=== PATIENT | male | born 1945 | race Caucasian/White ===

== ENCOUNTER 2024-11-07 11:50 | Outpatient (REF) | payer MEDICARE, SELFPAY ==
[2024-11-07 13:32] LABS: MANUAL DIFF FLAG NO
[2024-11-07 13:35] LABS: Prothrombin Time 11.2 SEC (10.9-12.4)
[2024-11-07 13:38] LABS: Basophils Percent Auto 0.6 % (0-2); Eosinophils Absolute Auto 0.1 X10*3/uL (0.0-0.4); Eosinophils Percent Auto 1.5 % (0-4); Hematocrit 50.4 % (42.0-52.0); Hemoglobin 17.1 g/dl (14.0-18.0); Imm Gran Abs Auto 0.03 X10*3/uL (0.00-0.03); Imm Gran Pct Auto 0.6 % (0.0-0.4); Lymphocytes Absolute Auto 1.5 X10*3/uL (1.2-4.9); Lymphocytes Percent Auto 27.3 % (20-40); Mean Corpuscular HGB Conc 33.9 g/dl (31.0-36.0); Mean Corpuscular Hemoglobin 32.4 pg (27.0-33.0); Mean Corpuscular Volume 95.5 fL (80.0-98.0); Mean Platelet Volume 10.4 fL (9.4-12.4); Monocytes Absolute Auto 0.4 X10*3/uL (0.1-1.2); Monocytes Percent Auto 6.5 % (2-11); Neutrophils Absolute Auto 3.5 x10*3/uL (2.0-8.3); Neutrophils Percent Auto 63.5 % (45-73); Platelet Count 195 X10*3/uL (160-400); Red Blood Count 5.28 X10*6/uL (4.60-5.80); Red Cell Distribution Width 13.5 % (11.0-16.0); White Blood Count 5.4 X10*3/uL (4.8-10.8)
[2024-11-07 13:44] LABS: Anion Gap 14 (12-20); Blood Urea Nitrogen 20 mg/dL (9-16); Calcium 9.7 mg/dL (8.4-10.2); Carbon Dioxide 21 mmol/L (22-29); Chloride 107 mmol/L (96-108); Estimated Glomerular Filt Rate 44; Glucose Random 146 mg/dL (60-115); Sodium 138 mmol/L (135-145)
--- OUTSIDE RECORDS SUMMARY | 2024-11-07 14:20 | XMS_ITS ---
Author Name [facility] Organization [facility] Address [address] [place] [id number] Care Team Providers Care Plumbing Foreman Name Role Phone WILIAM BERMAN Primary Care Provide r Unavailable Insurance Providers: All historical and current Section Date Range: From patient's date of to the date document was created. This section includes the names of all active insurance providers for the patient. Insurance Provider Type of Coverage Plan Name Start of Policy Coverage End of Policy Coverage Group Number Member ID Insurance Provider's Telephone Number Policy Flood's Name Patient's Relationship to Policy Flood [facility] (WNR) MEDICARE ADVANTAGE [facility] (WNR) Sep 05, 2012 HAMPD [id number] PATIENT [facility] (WNR) MEDICARE ADVANTAGE [facility] (WNR) Sep 05, 2012 [id number] PATIENT Selected Encounter This section includes the information on record at [place] for the Encounter. Date/Time Encounter Type Encounter Description Reason Pro vider Source Aug 22, 2024 05:54 AM Outpatient Encounter ADMIN PAT ACTIVTIES (MASNONCT) IHE Encounter Template Text not used by [place] Plan of Treatment: Future Appointments (+ 6 months) and Future Tests (+/- 45 days) The Plan of Treatment section includes future care activities for the patient from all [facility] treatment[facility]ilities. This section includes future appointments and future orders which are active, pending or scheduled. Future Appointments This section includes appointments that were scheduled to occur 6 months from the date of the Encounter, up to a maximum of 20 appointments. The data comes from all [place] treatment facilities. Appointment Date/Time Appointment Type Appointme nt Facility Name Sep 19, 2024 12:00 PM AMBULATORY - MEDICINE [place] [facility] [place] [facility] Oct 17, 2024 08:00 AM [facility] [place] [place] Oct 26, 2024 08:00 AM [facility]IC[facility] Oct 31, 2024 11:30 AM AMBULATORY - MEDICINE [place] [facility] [place] [facility] Nov 09, 2024 10:10 AM [facility]UL[facility]INE [facility] [place] [facility] Nov 21, 2024 11:00 AM AM[facility]ULATORY [facility] MEDICINE [facility] Dec 12, 2024 11:00 AM AMBULATORY - MEDICINE [place] [facility] [place] [facility] January 22, 2025 08:00 AM [facility]ORY - MEDICINE [facility] Feb 05, 2025 10:00 AM [facility] Lab Results: +/- 30 days of the encounter This section includes the Chemistry and Hematology Lab Results on record with [place] for the patient. Radiology Reports and Pathology Reports are provided separately, in subsequent sections. Lab Results This section contains the Chemistry/Hematology Results that were resulted 30 days before or 30 daysafter the date of the Encounter. Date/Time Source Result Type Result - Unit Interpretation Reference Range Comment Sep 19, 2024 12:43 PM [facility] HEMOGLOBIN A1C PANEL Specimen Type: BLOOD Comment: Values obtained from A1C measurements can vary. For atypical A1C assays, a reported value of 7.0 could actually be between 6.72 and 7.28 if measured by a reference method. A reported value of 9.0 could actually be between 8.73 and 9.27. Ref: http://www.ngs p.org/CAPdata. asp Ordering Provider: HALEY GO Report Released Date/Time: Sep 19, 2024 12:20 PM Reporting Lab: [address] [id number] Performing Lab: [address] [address] HEMOGLOBIN A1C 6.7 H 4.0-5.6 Sep 19, 2024 12:43 PM [facility] BASIC METABOLIC PANEL (non-fasting) Specimen Type: SERUM Comment: Hemolysis present may falsly elevate Potassium Total and Direct Bili, Iron, AST, %Fe. Ordering Provider: HALEY GO Report Released Date/Time: Sep 19, 2024 12:20 PM Reporting Lab: [facility] [address] [facility] [address] Performing Lab: [facility] [address] [facility] [address] UREA NITROGEN 22 mg/dL 7-25 GLUCOSE 100 mg/dL 65-100 SODIUM 138 mmol/L 135-145 POTASSIUM 4.8 mmol/L 3.5-5.0 CHLORIDE 105 mmol/L 100-110 CO2 25 meq/L 20-30 CREATININE, Serum 1.57 mg/dL H 0.50-1.40 eGFR(CKD-EPI 2020) 44 mL/min L >60 Social History: Smoking Status (Most current) and Tobacco Use (All prior to encounter date) This section includes the most current, and the historical, smoking and tobacco- related health factors from the [place] facility where the Encounter took place. Current Smoking Status This section includes the most current smoking, or tobacco-related health factor, from the [place] facility where the Encounter took place. Date/Time Current Smoking Status Comment Alyce ity Jul 18, 2020 11:41 AM VA-TOBACCO USER EVERY DAY [facility] Tobacco Use History This section includes a history of the smoking, or tobacco-related health factors, that were collected on or before the date of the Encounter. The data comes from the [place] facility where the Encounter took place. 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 This section includes ALL of a patient's completed or amended [place] Advance and Rescinded Directives. The entries below indicate that a directive exists for the patient, but an actual copy is not included with this document. The data comes from all [place] facilities. Date Advance Directives Provider Source Sep 26, 2015 ADVANCE DIRECTIVE SRINIVAS ANDERSON WALDRON Encounter Notes: All associated encounter notes This section contains the clinical notes associated to the Encounter. Date/Time Encounter Note(s) Provider Source Aug 22, 2024 05:54 AM PHARMACY NOTE: LOCAL TITLE: PHARMACY CUSTOMER CARE MEDICATION RENEWAL STANDARD TITLE: PHARMACY NOTE DATE OF NOTE: AUG 22, 2024@05:54 ENTRY DATE: AUG 22, 2024@05:54:53 AUTHOR: TRUDI PETTIT EXP COSIGNER: URGENCY: STATUS: COMPLETED Date: Aug Division: [facility] referred by Pharmacy Call Center for medication renewal: Non-controlled/maintenanc e medication Medications requested: [id number] BENAZEPRIL HCL 20MG TAB Defer to primary care provider To be mailed . Please review and renew if appropriate. *This note was generated by [facility] [facility] Customer [facility]. If you have any questions or need assistance, do not contact this author. Please refer all questions to your local, on-site pharmacy departments. /marisela/ TRUDI PETTIT CPhT Child Protection Specialist, [place]/Pharmacy Customer Care Signed: 08/22/2024 05:55 Receipt Acknowledged By: 08/24/2024 13:38 /es/ WILIAM BERMAN MD PHYSICIAN 08/30/2024 15:02 /es/ CINDY BERMAN RN REGISTERED NURSE TRUDI PETTIT [place] [facility]
--- OUTSIDE RECORDS SUMMARY | 2024-11-07 14:20 | XMS_ITS | Encounter Summary ---
Author Name [facility] ([place]) Organization [facility] Address [address] [place] [id number] Care Team Providers Care Grades 7 And 8 Visiting Teacher Name Role Phone WILIAM BERMAN Primary Care [...] Flood's Name Patient's Relationship to Policy Flood [facility] HE[facility]AN [facility] ([facility]) MEDICARE ADVANTAGE [facility] (R) Sep 05, 2012 [id number] PATRICK POLK PATIENT [facility] (WNR) MEDICARE ADVANTAGE [facility] (WNR) Sep 05, 2012 [id number] PATRICK POLK PATIENT Selected Encounter This section includes the information on record at ME for the Encounter. Date/Time Encounter Type Encounter Description Reason Provider Source Jun 28, 2024 09:30 AM MTMS BY PHARM ADDL 15 MIN CLINICAL PHARMACY ICD-10-CM E11.9 Type 2 diabetes mellitus without complications [facility]YS GO Lor Encounter Template Text not used by ME Assessments - Encounter Diagnoses This section includes the primary and secondary diagnoses documented for the Encounter. Date/Time Primary/Secondary Diagnosis Diagnosis Name Provider Source Jun 28, 2024 10:25 AM PRIMARY Type 2 diabetes mellitus without complications HALEY GO [facility] Plan of Treatment: Future Appointments (+ 6 months) and Future Tests (+/- 45 days) The Plan of Treatment section includes future care activities for the patient from all ME treatmentfacilities. This section includes future appointments and future orders which are active, pending or scheduled. Future Appointments This section includes appointments that were scheduled to occur 6 months from the date of the Encounter, up to a maximum of 20 appointments. The data comes from all ME treatment facilities. Appointment Date/Time Appointment Type Appointme nt Facility Name Jul 05, 2024 11:30 AM AMBULATORY - MEDICINE [facility] Jul 18, 2024 08:00 AM AMBULATORY - MEDICINE [facility] Aug 22, 2024 10:00 AM AMBULATORY - MEDICINE [facility] Sep 19, 2024 12:00 PM AMBULATORY MEDICINE [place] [facility] [place] [facility] Oct 17, 2024 08:00 AM AMBULATORY - MEDICINE [facility] Oct 26, 2024 08:00 AM AMBULATORY MEDICINE [facility] Oct 31, 2024 11:30 AM AMBULATORY MEDICINE [place] [facility] Nov 09, 2024 10:10 AM AMBULATORY MEDICINE [place] [facility] Nov 21, 2024 11:00 AM AMBULATORY - MEDICINE [facility] Dec 12, 2024 11:00 AM AMBULATORY - MEDICINE [facility] Lab Results: +/- 30 days of the encounter This section includes the Chemistry and Hematology Lab Results on record with ME for the patient. Radiology Reports and Pathology Reports are provided separately, in subsequent sections. Lab Results This section contains the Chemistry/Hematology Results that were resulted 30 days before or 30 daysafter the date of the Encounter. Date/Time Source Result Type Result - Unit Interpretation Reference Range Comment Jun 20, 2024 09:05 AM [facility] H PYLORI ANTIBODY Specimen Type: SERUM No comment entered. Ordering Provider: WILIAM EPPS Report Released Date/Time: Feb 12, 2024 06:47 PM Reporting Lab: [facility] [address] [facility] [address] Performing Lab: [facility] [address] [facility] [address] H PYLORI IgG NEGATIVE NEGATIVE Jun 20, 2024 09:05 AM [facility] HEMOGLOBIN A1C PANEL Specimen Type: BLOOD Comment: Values obtained from A1C measurements can vary. For atypical A1C assays, a reported value of 7.0 could actually be between 6.72 and 7.28 if measured by a reference method. A reported value of 9.0 could actually be between 8.73 and 9.27. Ref: http://www.ngs p.org/CAPdata. asp Ordering Provider: WILIAM EPPS Report Released Date/Time: Feb 12, 2024 06:48 PM Reporting Lab: [address] [address] Performing Lab: [address] [address] HEMOGLOBIN A1C 6.6 H 4.0-5.6 Jun 20, 2024 09:05 AM [facility] MICROALBUMIN CREATININE RATIO PANEL Spe cimen Type: URINE No comment entered. Ordering Provider: WILIAM EPPS Report Released Date/Time: Feb 12, 2024 06:48 PM Reporting Lab: [address] [address] Performing Lab: [address] [address] MICROALBUMIN/C REATININE RATIO 17.5 mg/g 0-29.9 MICROALBUMIN,Q UANTITATIVE 1.7 mg/dL RR UNAVAIL CREATININE URINE 97.12 mg/dL Jun 20, 2024 09:05 AM [facility] BASIC METABOLIC PANEL (fasting) Specime n Type: SERUM No comment entered. Ordering Provider: WILIAM EPPS Report Released Date/Time: Feb 12, 2024 06:48 PM Reporting Lab: [address] [address] Performing Lab: [address] [address] UREA NITROGEN 24 mg/dL 7-25 GLUCOSE 126 mg/dL H 65-100 SODIUM 138 mmol/L 135-145 POTASSIUM 4.2 mmol/L 3.5-5.0 CHLORIDE 107 mmol/L 100-110 CO2 21 meq/L 20-30 CREATININE, Serum 1.62 mg/dL H 0.50-1.40 eGFR(CKD-EPI 2020) 43 mL/min L >60 Social History: Smoking Status (Most current) and Tobacco Use (All prior to encounter date) This section includes the most current, and the historical, smoking and tobacco- related health factors from the ME facility where the Encounter took place. Current Smoking Status This section includes the most current smoking, or tobacco-related health factor, from the ME facility where the Encounter took place. Date/Time Current Smoking Status Comment Facil it Aug 11, 2023 09:00 AM VA-TOBACCO USER EVERY DAY [facility] Tobacco Use History This section includes a history of the smoking, or tobacco-related health factors, that were collected on or before the date of the Encounter. The data comes from the ME facility where the Encounter took place. Date/Time Smoking Status/Tobacco Use Comment [facility] Aug 11, 2023 09:00 AM VA-TOBACCO USE 30 YEARS OR MORE [facility] Aug 11, 2023 09:00 AM VA-TOBACCO USE ADVICE [facility] Aug 11, 2023 09:00 AM VA-TOBACCO USE PROGRAM MANAGEMENT PROFESSIONAL NO [facility] Aug 11, 2023 09:00 AM VA-TOBACCO USE MED NO [facility] Aug 11, 2023 09:00 AM VA-TOBACCO USER EVERY DAY [facility] Aug 12, 2022 09:00 AM VA-TOBACCO USE 30 YEARS OR MORE [facility] Aug 12, 2022 09:00 AM VA-TOBACCO USE ADVICE [facility] Aug 12, 2022 09:00 AM VA-TOBACCO USE PROGRAM MANAGEMENT PROFESSIONAL NO [facility] Aug 12, 2022 09:00 AM VA-TOBACCO USE MED [facility] Aug 12, 2022 09:00 AM VA-TOBACCO USE WI 30 MIN OF WAKEUP [facility] Aug 12, 2022 09:00 AM VA-TOBACCO USER EVERY DAY [facility] Aug 13, 2021 09:30 AM VA-TOBACCO USE 30 YEARS OR MORE [facility] Aug 13, 2021 09:30 AM VA-TOBACCO USE ADVICE [facility] Aug 13, 2021 09:30 AM VA-TOBACCO USE PROGRAM MANAGEMENT PROFESSIONAL NO [facility] Aug 13, 2021 09:30 AM VA-TOBACCO USE MED NO [facility] Aug 13, 2021 09:30 AM VA-TOBACCO USE WI 30 MIN OF WAKEUP [facility] Aug 13, 2021 09:30 AM VA-TOBACCO USER EVERY DAY [facility] Jun 23, 2018 09:30 AM VA-TOBACCO USE 30 YEARS OR MORE [facility] Jun 23, 2018 09:30 AM VA-TOBACCO USE ADVICE [facility] Jun 23, 2018 09:30 AM VA-TOBACCO USE PROGRAM MANAGEMENT PROFESSIONAL NO [facility] Jun 23, 2018 09:30 AM VA-TOBACCO USE MED NO [facility] Jun 23, 2018 09:30 AM VA-TOBACCO USE WI 30 MIN OF WAKEUP [facility] Jun 23, 2018 09:30 AM VA-TOBACCO USER EVERY DAY [facility] Jun 23, 2018 05:05 AM VA-TOBACCO DOESNT USE WI 30 MIN BIG TIMBERUP [facility] Jun 23, 2018 05:05 AM VA-TOBACCO USE 30 YEARS OR MORE [facility] Jun 23, 2018 05:05 AM VA-TOBACCO USE ADVICE [facility] Jun 23, 2018 05:05 AM VA-TOBACCO USE PROGRAM MANAGEMENT PROFESSIONAL NO [facility] Jun 23, 2018 05:05 AM VA-TOBACCO USE MED NO [facility] Jun 23, 2018 05:05 AM VA-TOBACCO USER EVERY DAY [facility] Jun 24, 2017 08:28 AM CURRENT SMOKER cigarettes 3/4 pack daily [facility] Jun 24, 2017 08:28 AM V1-PT NOT INTEREST ED IN QUIT TOBACCO USE [facility] May 21, 2016 09:13 AM V1-PT NOT INTEREST ED IN QUIT TOBACCO USE [facility] Sep 02, 2015 03:57 PM CURRENT SMOKER HALF A PACK A DAY [facility] Sep 02, 2015 03:57 PM V1-PT NOT INTEREST ED IN QUIT TOBACCO USE [facility] Advance Directives: All historical and current Section Date Range: From patient's date of to the date document was created. This section includes ALL of a patient's completed or amended VA Advance and Rescinded Directives. The entries below indicate that a directive exists for the patient, but an actual copy is not included with this document. The data comes from all ME facilities. Date Advance Directives Provider Source Sep 26, 2015 ADVANCE DIRECTIVE SRINIVAS ANDERSON [facility] Encounter Notes: All associated encounter notes This section contains the clinical notes associated to the Encounter. Date/Time Encounter Note(s) Provider Source Jun 28, 2024 09:35 AM PHARMACY OUTPATIEN T NOTE: LOCAL TITLE: PHARMACY CLINIC NOTE STANDARD TITLE: PHARMACY OUTPATIENT NOTE DATE OF NOTE: JUN 28, 2024@09:35 ENTRY DATE: JUN 28, 2024@09:35:59 AUTHOR: KELLY GO COSIGNER: URGENCY: STATUS: COMPLETED Patient Name: PATRICK POLK was seen via F2F for new visit for diabetes management treatment. : Dec Age: 78 Sex: MALE Race: WHITE Subjective: Pt is new to [facility]. He is followed by outside Enodcrinologist from [facility]. Pt's main complaints are his GI issues - pt states he gets constant pain and difficulty w/ eating. He plans to discuss this w/ his PCP at the upcoming visit on 07/05/24. He also has back pain - he learned to live with it but states it continues to progresively get worse. Pt walks hunched over. Due to back pain and severe GI symptoms pt stopped fishing, golfing as this is big limitation to his activity level. Pt has had DM x over 20 years. NO fhx of DM. No CVD histroy. Pt has CKD stage 4 and severe neuropathy in his feet. Target Goals: A1C: 7%; FB-130 mg/dL; 2HRS PP <180mg/dL. Allergies: Patient has answered NKA PERTINENT INFORMATION: Active problems - Computerized Problem List is the source for the followin. Cholelithiasis without obstruction 2. Vitamin D Deficiency ([facility] [id number]) 3. Exposure to potentially hazardous substance 4. Polyneuropathy due to type 2 diabetes mellitus 5. Cobalamin deficiency 6. Obesity 7. Tobacco dependence 8. Type 2 diabetes mellitus 9. Chronic kidney disease stage 3 10. Hypertension 11. Mixed hyperlipidemia 12. Gout 13. Colonoscopy Screening 14. First degree atrioventricular block 15. Inguinal hernia 16. 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 Primary Care Physician 19. Gastroesophageal reflux disease Objective: Diabetes Medication Regimen: - empagliflozin 25 mg daily in AM - eGFR 43ml/min on 06/28 - pioglitazone 30 mg daily - Insulin glargine (vial) 40-50 units daily in HS usually after supper 5-6 PM - Semaglutide 0.5 mg weekly (Fridays) Previous DM Medications: - metformin - for many years likely d/t kidney - insulin detemir - trulicity Adherence: Oral meds: denies missed doses Insulin: denies missed doses Labs: HEMOGLOBIN A1C TREND Collection DT Spec HGBA1c 06/20/2024 09:05 BLOOD 6.6 H 11/23/2023 08:11 BLOOD 6.7 H 08/03/2021 07:36 BLOOD 8.4 H 06/20/2020 09:36 BLOOD 8.1 H 06/08/2019 08:45 BLOOD 7.8 H CBC TREND Collection DT Spec WBC RBC HGB HCT MCV MCH PLT 11/23/2023 08:11 BLOOD 5.90 4.99 15.7 46.5 93.2 31.5 238 06/08/2019 08:45 BLOOD 5.40 4.47 14.3 43.5 97.3 32.0 274 06/09/2018 08:04 BLOOD 6.90 4.40 14.1 42.5 96.6 32.0 288 06/17/2017 08:11 BLOOD 5.49 4.20 L 13.4 40.4 96.2 31.9 261 03/15/2016 07:50 BLOOD 6.36 4.64 14.3 43.2 93.1 30.8 225 CHEM 7 TREND LAB CUMULATIVE SELECTED Collection DT Spec GLUCOSE BUN CREATIN Sodium K+/Pot CL CO2 06/20/2024 09:05 SERUM 126 H 24 1.62 H 138 4.2 107 21 11/23/2023 08:11 SERUM 97 21 1.47 H 138 4.1 106 22 08/03/2021 07:36 SERUM 122 H 25 1.66 H 141 4.5 107 22 06/20/2020 09:36 SERUM 110 H 23 1.65 H 139 4.6 104 24 06/08/2019 08:45 SERUM 103 H 21 1.53 H 139 5.4 H 106 25 LAB CUMULATIVE SELECTED 2 No selection items chosen for this component. CHEM 7 Results Collection DT Spec Sodium K+/Pot CL CO2 GLUCOSE BUN 06/20/2024 09:05 SERUM 138 4.2 107 21 126 H 24 11/23/2023 08:11 SERUM 138 4.1 106 22 97 21 08/03/2021 07:36 SERUM 141 4.5 107 22 122 H 25 06/20/2020 09:36 SERUM 139 4.6 104 24 110 H 23 06/08/2019 08:45 SERUM 139 5.4 H 106 25 103 H 21 06/09/2018 08:04 SERUM 139 4.8 107 24 109 H 19 06/17/2017 08:11 SERUM 139 4.9 108 24 106 H 23 03/15/2016 07:50 SERUM 139 5.1 H 108 25 82 24 LIPID PANEL TREND Collection DT Spec CHOL HDL CHO/HDL LDL-c TRIG 11/23/2023 08:11 SERUM 162 37 L 4.4 97 138 08/03/2021 07:36 SERUM 162 35 L 4.6 96 154 H 06/20/2020 09:36 SERUM 144 41 3.5 77 130 06/08/2019 08:45 SERUM 165 37 L 4.5 86 211 H 06/09/2018 08:04 SERUM 160 39 L 4.1 79 208 H THYROID PANEL Collection DT Specimen Test Name Result Units Ref Range 11/23/2023 08:11 SERUM TSH 1.74 uIU/mL 0.35 - 5.00 VITAMIN D 25-OH Collection DT Specimen Test Name Result Units Ref Range 11/23/2023 08:11 SERUM VITAMIN D (25-OH) <13 L ng/mL 20 - 50 ---- LIPID PANEL ---- SERUM Mar Reference 2023 08:11 Units Ranges CHOL 162 mg/dL <7 - 199 TRIG 138 mg/dL 0 - 150 HDL 37 L mg/dL 40 - 60 LDL-d mg/dL <10 - 120 LDL 97 mg/dL 0 - 129 CHO/HDL 4.4 Comments: e SrCr (last 6 weeks): CREATININE-EGFR 06/20/24 09:05 1.62 H CRCL IBW: CrCl(est): 48.3 mL/min (Creat:1.62 06/20/24) CRCL ACT: 60.81 mL/min CRCL ADJ: 48.3 mL/min (06/20/24) lft's: wnl on 11/2023 Vitals: Weight (BMI): 255.8 lb [116.03 kg] (02/06/2024 14:32) Height: 74 in [188.0 cm] (08/11/2023 09:05) BMI: 32.9 Active and Recently Outpatient Medications (including Supplies): Active Outpatient Medications Status Active Outpatient Medications (including Supplies): BENAZEPRIL HCL 20MG TAB TAKE ONE TABLET BY MOUTH ONCE ACTIVE (S) DAILY FOR HIGH BLOOD PRESSURE CHOLECALCIF 50MCG (D3-2,000UNIT) TAB TAKE ONE TABLET BY ACTIVE (S) MOUTH ONCE DAILY FOR VITAMIN SUPPLEMENTATION EMPAGLIFLOZIN 25MG TAB TAKE ONE TABLET BY MOUTH ONCE DAILY ACTIVE FOR TYPE 2 DIABETES MELLITUS FENOFIBRATE 145MG TAB TAKE ONE TABLET BY MOUTH ONCE DAILY ACTIVE (S) FOR HIGH CHOLESTEROL FINASTERIDE 5MG TAB TAKE ONE TABLET BY MOUTH ONCE DAILY ACTIVE (S) INSULIN SYRINGE 1ML 30G 12MM USE 1 SYRINGE SUBCUTANEOUSLY ACTIVE (S) DAILY FOR INSULIN INJECTIONS INSULIN,GLARGINE-YFGN 100UNIT/ML INJ INJECT 75 UNITS ACTIVE (S) SUBCUTANEOUSLY ONCE DAILY FOR TYPE 2 DIABETES MELLITUS THIS REPLACES INSULIN DETEMIR SEMAGLUTIDE 0.25MG/0.375ML INJ PEN 3ML INJECT 0.5MG ACTIVE SUBCUTANEOUSLY ONCE A WEEK FOR TYPE 2 DIABETES MELLITUS TAMSULOSIN HCL 0.4MG CAP TAKE ONE CAPSULE BY MOUTH ONCE ACTIVE (S) DAILY FOR ENLARGED PROSTATE Non-VA ASPIRIN 81MG EC TAB 81MG BY MOUTH DAILY ACTIVE Non-VA OTHER CAP/TAB ONE TOUCH ULTRA BLUE IN VITRO STRIP ACTIVE BY MOUTH FOUR TIMES A DAY Non-VA PIOGLITAZONE HCL 30MG TAB 30MG BY MOUTH DAILY ACTIVE MEDICATION RECONCILIATION: done OTC meds : gasex in AM and hs nexium 40 mg daily hs Date: 06/28/24 Pt is on maddi 2 - non-VA rx 14 DAY AVERAGE = 124 mg/dl 0% >250 9% 181-250 91% 70-180 0% 54-69 NUTRITION. Diet Patterns: patient eats on avg. x/day: B: 1-2 toasts , w/ butter peanut butter L:07-16:30 depends what the BG is sandwich ; soup D: 5-6 PM: cooks: veggies, meat, spaghetti; Snacks: peanuts, pretzel peanuts; potatoe chips Drinks: mostly water, diet soda , tea , cup of coffee Exercise: back problems cannot stand for more than 5 minutes; needs to bend over has to walk distance neuropathy HYPOGLYCEMIC Events: 0 in the last 2 weeks Hypoglycemia recognition & treatment reviewed: Yes EtOH/Illicit drugs: Alcohol: denies Tobacco: denies Other: - Denies personal or fhx thyroid cancer or MENS2 - Denies hx pancreatitis Personal Goals: - Get BG under control - Lose weight ASSESSMENT/PLAN: Pt has a lot of problems with GI mainly. His DM appears to be well controlled pt wishes to obtain from the [facility] will place NF for dexcom. No changes in dm regimen at this time. REviewed the nutrition pt has a lot of GI issues - recommended to discuss this w/ pcp she may consider GI consult. f/up in August if dexcom approved pt will be trained. He will be using a reader DIABETES A1c is below goal of <7% - Medication management Diabetes - empagliflozin 25 mg daily in AM - eGFR 43ml/min on 06/28 - pioglitazone 30 mg daily - Insulin glargine (vial) 40-50 units daily in HS usually after supper 5-6 PM - Semaglutide 0.5 mg weekly (Fridays) - Reviewed [facility] lab result - Monitor for s/sx hypoglycemia and contact clinic if BG consistently <70mg/dL - Healthy dietary and lifestyle modifications encouraged - to monitor snacking at night time - Repeat A1c: x 3 months HTN: recent BP wnl at home 120/65mmHg; empagliflozin; benazepril; JONES-I/ARB - defer to PCP ASCVD: ASA; fenofibrate , atorvastatin 20 mg daily Microalb: mALB/Cr: 17.5 mg/G (06/28) History of Preventive Care: Most recent [facility]; sees Dr. Villalpando every 11 weeks Most recent visit to optometry: [facility]; does not report any NPDR or DR Clinic's Next Scheduled Follow-up: August, No barriers; Patient understands and agrees to current treatment plan. If he has any questions, concerns, or changes in current health status he will call or come in to the [facility]. FUTURE APPOINTMENTS: 07/05/2024 11:30 CWM/SO/PACT 5 07/18/2024 08:00 ANGELINAM/SO/SO 10/17/2024 08:00 REGAN/SO/SANDRA/FAITH DM type is : t2d Length of Visit: 30 minutes PBM PharmD Pharmacotherapy Rem V12: PHARMACIST INTERVENTIONS: TYPE 2 DIABETES MELLITUS Medication monitoring, no dosage change required, continue to monitor and assess /marisela/ KELLY GO [address] SPRINKLER Signed: 07/02/2024 14:58 Receipt Acknowledged By: 07/02/2024 16:11 /es/ PATRICK FLORES PA-C STAFF PHYSICIAN SUPERVISOR [employer] for KELLY CARR
--- OUTSIDE RECORDS SUMMARY | 2024-11-07 14:21 | XMS_ITS | Encounter Summary ---
Author Name [facility] [place] [facility] [place] Address [address] [place] [id number] Care Team Providers Care Paper Products Supervisor Name Role Phone WILIAM BERMAN Primary Care [...] Flood's Name Patient's Relationship to Policy Flood [facility] (R) MEDICARE ADVANTAGE [facility] (R) Sep 05, 2012 HAMPD [id number] PATRICK POLK PATIENT [facility] ([place] MEDICARE ADVANTAGE [facility] ([place]) Sep 05, 2012 [id number] PATRICK POLK PATIENT Selected Encounter This section includes the information on record at [place] for the Encounter. Date/Time Encounter Type Encounter Description Reason Provider Source Oct 31, 2024 11:30 AM MTMS BY PHARM ADDL 15 MIN CLINICAL PHARMACY ICD-10-CM E11.9 Type 2 diabetes mellitus without complications [facility] Encounter Template Text not used by [place] Assessments - Encounter Diagnoses This section includes the primary and secondary diagnoses documented for the Encounter. Date/Time Primary/Secondary Diagnosis Diagnosis Name Provider Source Oct 31, 2024 11:48 AM PRIMARY Type 2 diabetes mellitus without complications [facility] Plan of Treatment: Future Appointments (+ 6 months) and Future Tests (+/- 45 days) The Plan of Treatment section includes future care activities for the patient from all [place] [facility] [place]. This section includes future appointments and future orders which are active, pending or scheduled. Future Appointments This section includes appointments that were scheduled to occur 6 months from the date of the Encounter, up to a maximum of 20 appointments. The data comes from all [place] treatment facilities. Appointment Date/Time Appointment Type Appointme nt Facility Name Nov 09, 2024 10:10 AM [place] [facility] Nov 21, 2024 11:00 AM [facility] Dec 12, 2024 11:00 AM [place] [facility] January 22, 2025 08:00 AM [facility] - MEDIC[place] [place] Feb 05, 2025 10:00 AM [facility]BUL[facility]ORY - MEDICINE [place] Apr 02, 2025 08:00 AM AMBULATORY - MEDICINE [place] Active, Pending, and Scheduled Orders This section includes a listing of several types of active, pending, and scheduled orders, including clinic medications orders, diagnostic test orders, procedure orders and consult orders; where the start date of the order is 45 days before the date of the Encounter or 45 days after the date of theEncounter. The data comes from all [place] treatment [facility]. Test Date/Time Test Type Test Details Facility Name Oct 10, 2024 04:30 PM Consult Order COMMUNITY CARE-UROLOGY Cons [employer] Worker[employer] Choice [facility] Social History: Smoking Status (Most current) and Tobacco Use (All prior to encounter date) This section includes the most current, and the historical, smoking and tobacco- related health factors from the [place] facility where the Encounter took place. Current Smoking Status This section includes the most current smoking, or tobacco-related health factor, from the [place] facility where the Encounter took place. Date/Time Current Smoking Status Comment Facil ity Aug 11, 2023 09:00 AM VA-TOBACCO USER EVERY DAY [facility] Tobacco Use History This section includes a history of the smoking, or tobacco-related health factors, that were collected on or before the date of the Encounter. The data comes from the [place] facility where the Encounter took place. 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 [facility] 08, 2022 09:00 AM VA-TOBACCO USE MED NO [facility] 08, 2022 09:00 AM VA-TOBACCO USE [place] 30 MIN OF OGDENUP [facility] 08, 2022 09:00 AM VA-TOBACCO USER EVERY DAY [facility] 09, 2021 09:30 AM VA-TOBACCO USE 30 YEARS OR MORE [facility] Aug 13, 2021 09:30 AM VA-TOBACCO USE ADVICE [facility] 09, 2021 09:30 AM VA-TOBACCO USE [employer] 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 [facility] 09, 2021 09:30 AM VA-TOBACCO USE MED NO [facility] 09, 2021 09:30 AM VA-TOBACCO USE [place] 30 MIN OF OGDENUP [facility] 09, 2021 09:30 AM VA-TOBACCO USER EVERY DAY [facility] Jun 23, 2018 09:30 AM VA-TOBACCO USE 30 YEARS OR MORE [facility] Jun 23, 2018 09:30 AM VA-TOBACCO USE ADVICE [facility] Jun 23, 2018 09:30 AM VA-TOBACCO USE [employer] 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 [facility] Jun 23, 2018 09:30 AM VA-TOBACCO USE MED NO [facility] Jun 23, 2018 09:30 AM VA-TOBACCO USE [place] 30 MIN [facility] Jun 23, 2018 09:30 AM VA-TOBACCO USER EVERY DAY [facility] Jun 23, 2018 05:05 AM VA-TOBACCO DOESNT USE [place] 30 MIN [facility] Jun 23, 2018 05:05 AM VA-TOBACCO USE 30 YEARS OR MORE [facility] Jun 23, 2018 05:05 AM VA-TOBACCO USE ADVICE [facility] Jun 23, 2018 05:05 AM VA-TOBACCO USE 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 [facility] Jun 23, 2018 05:05 AM VA-TOBACCO USE MED NO [facility] Jun 23, 2018 05:05 AM VA-TOBACCO USER EVERY DAY [facility] Jun 24, 2017 08:28 AM CURRENT SMOKER cigarettes 3/4 pack daily [facility] Jun 24, 2017 08:28 AM V1-PT NOT INTEREST ED IN QUIT TOBACCO USE [facility] May 21, 2016 09:13 AM V1-PT NOT INTEREST ED IN QUIT TOBACCO USE [facility] Sep 02, 2015 03:57 PM CURRENT SMOKER HALF A PACK A DAY [facility] Sep 02, 2015 03:57 PM V1-PT NOT INTEREST ED IN QUIT TOBACCO USE [facility] Advance Directives: All historical and current Section Date Range: From patient's date of to the date document was created. This section includes ALL of a patient's completed or amended [facility] Advance and Rescinded Directives. The entries below indicate that a directive exists for the patient, but an actual copy is not included with this document. The data comes from all [place] facilities. Date Advance Directives Provider Source Sep 26, 2015 ADVANCE DIRECTIVE JUSTINSRINIVAS LOBATO [facility] Encounter Notes: All associated encounter notes This section contains the clinical notes associated to the Encounter. Date/Time Encounter Note(s) Provider Source Oct 31, 2024 11:40 AM PHARMACY OUTPATIEN T NOTE: LOCAL TITLE: PHARMACY CLINIC NOTE STANDARD TITLE: PHARMACY OUTPATIENT NOTE DATE OF NOTE: OCT 31, 2024@11:40 ENTRY DATE: OCT 31, 2024@11:41:05 AUTHOR: KELLY GO COSIGNER: URGENCY: STATUS: COMPLETED Patient Name: PATRICK POLK was seen via f for follow-up for diabetes management treatment. : Dec Age: 78 Sex: MALE Race: WHITE Subjective: Pt is for f/up after dexcom treatment. pt continues to have GI problems ;had meeting w/ GI specialist at [place] did not find them helpful. Pt ran out of pioglitazone he was receiving from outside. about 5 weeks ago. Per prev: Pt is new to [facility]. He is followed by outside Enodcrinologist from [facility]. Pt's main complaints are his GI [...] Cholelithiasis without obstruction 2. Vitamin D Deficiency (SCT [id number]) 3. Exposure to potentially hazardous substance 4. [...] 25 mg daily in AM - eGFR 44ml/min on 09/2024 - Insulin glargine (vial) 10 units daily in HS usually after supper 5-6 PM - self reduce d/t low - Semaglutide 0.5 mg weekly (Fridays) Previous DM Medications: - metformin - for many years likely d/t kidney - insulin detemir - trulicity - pioglitazone 30 mg daily - pt ran out - ran out 5 weeks ago stopped taking it Adherence: Oral meds: denies missed doses Insulin: denies missed doses Labs: HEMOGLOBIN A1C TREND Collection DT Spec HGBA1c 09/19/2024 12:43 BLOOD 6.7 H 06/20/2024 09:05 BLOOD 6.6 H 11/23/2023 08:11 BLOOD 6.7 H 08/03/2021 07:36 BLOOD 8.4 H 06/20/2020 09:36 BLOOD 8.1 H CBC TREND Collection DT Spec WBC [...] GLUCOSE BUN CREATIN Sodium K+/Pot CL CO2 09/19/2024 12:43 SERUM 100 22 1.57 H 138 4.8 105 25 06/20/2024 09:05 SERUM 126 H 24 1.62 H 138 4.2 107 21 11/23/2023 08:11 SERUM 97 21 1.47 H 138 4.1 106 22 08/03/2021 07:36 SERUM 122 H 25 1.66 H 141 4.5 107 22 06/20/2020 09:36 SERUM 110 H 23 1.65 H 139 4.6 104 24 LAB CUMULATIVE SELECTED 2 No selection items chosen for this component. CHEM 7 Results Collection DT Spec Sodium K+/Pot CL CO2 GLUCOSE BUN 09/19/2024 12:43 SERUM 138 4.8 105 25 100 22 06/20/2024 09:05 SERUM 138 4.2 107 21 [...] (25-OH) <13 L ng/mL 20 - 50 SrCr (last 6 weeks): CREATININE-EGFR 09/19/24 12:43 1.57 H CRCL IBW: CrCl(est): 50.3 mL/min (Creat:1.57 09/19/24) CRCL ACT: 64.36 mL/min CRCL ADJ: 50.3 mL/min (09/19/24) lfts wnl 11/2023 Vitals: Weight (BMI): 262.4 lb [119.02 kg] (07/05/2024 11:45) Height: 74 in [188.0 cm] (08/11/2023 09:05) BMI: 33.8 Active and Recently Outpatient Medications (including Supplies): Active Outpatient Medications Status Active Outpatient Medications (including Supplies): BENAZEPRIL HCL 20MG TAB TAKE ONE TABLET BY MOUTH ONCE ACTIVE DAILY Indication: FOR HIGH BLOOD PRESSURE CHOLECALCIF 50MCG (D3-2,000UNIT) TAB TAKE ONE TABLET BY ACTIVE MOUTH ONCE DAILY FOR VITAMIN SUPPLEMENTATION Indication: FOR VITAMIN D DEFICIENCY EMPAGLIFLOZIN 25MG TAB TAKE ONE TABLET BY MOUTH ONCE DAILY ACTIVE Indication: FOR TYPE 2 DIABETES MELLITUS FENOFIBRATE 145MG TAB TAKE ONE TABLET BY MOUTH ONCE DAILY ACTIVE Indication: FOR HIGH CHOLESTEROL FINASTERIDE 5MG TAB TAKE ONE TABLET BY MOUTH ONCE DAILY ACTIVE GLUCOSE SENSOR DEXCOM G7 USE 1 SENSOR DIRECTED EVERY 10 ACTIVE (S) DAYS GLUCOSE SENSOR DEXCOM G7 USE 1 SENSOR DIRECTED EVERY 10 PENDING DAYS INSULIN SYRINGE 1ML 30G 12MM USE 1 SYRINGE SUBCUTANEOUSLY ACTIVE DAILY FOR INSULIN INJECTIONS SEMAGLUTIDE 0.25MG/0.375ML INJ PEN 3ML INJECT 0.5MG ACTIVE SUBCUTANEOUSLY ONCE A WEEK Indication: FOR TYPE 2 DIABETES MELLITUS TAMSULOSIN HCL 0.4MG CAP TAKE ONE CAPSULE BY MOUTH ONCE ACTIVE DAILY Indication: FOR ENLARGED PROSTATE Non-VA ASPIRIN 81MG EC TAB 81MG BY MOUTH DAILY ACTIVE Non-VA ATORVASTATIN CALCIUM 40MG TAB 20MG BY MOUTH ONCE ACTIVE DAILY Non-VA OTHER CAP/TAB ONE TOUCH ULTRA BLUE IN VITRO STRIP ACTIVE BY MOUTH FOUR TIMES A DAY Non-VA PIOGLITAZONE HCL 30MG TAB 30MG BY MOUTH DAILY ACTIVE 14 Total Medications MEDICATION RECONCILIATION: done Date: 06/28/24 Pt is on maddi 2 - non-VA rx 14 DAY AVERAGE = 124 mg/dl 0% >250 9% 181-250 91% 70-180 0% 54-69 Date: 09/19/24; SMBG via glucose meter checks 3x week ; this AM fasting 86 mg/dl Date: 10/31/24 dexcom g7 14 day av mg/dl 0% very high 13% high 87% in range 0% low <1% very low gmi: 6.7 % sensor usage: 94% NUTRITION. Diet Patterns: patient eats on avg. x/day: B: 1-2 toasts , w/ butter peanut butter L:11-11:30 depends what the BG is sandwich ; [...] trained. He will be using a reader In the last 12 months, were there times when the food for you just did not last and there was no money to buy more? NO INSTRUCTIONS/CONTENT REVIEWED DURING THIS VISIT: RISKS AND BENEFITS SYTEM OVERVIEW/COMPONENTS JOLIE SET UP INSTALL JOLIE HOW TO USE VIEW HOME SCREEN SMART DEVICE SETTINGS BOLT LOADER SET UP BOLT LOADER SET UP HOW/WHEN TO TO USE VIEW HOME SCREEN BOLT LOADER DEVICE SETTINGS JOLIE AND BOLT LOADER TREND ARROWS JOLIE AND BOLT LOADER TREND GRAPHS END SENSOR SESSION REMOVE SENSOR ENDING SENSOR SESSION EARLY ALARM, ALERTS, AND ADAVANCED ALERTS URGENT LOW GLUCOSE ALARM CHANGE LOW AND HIGH ALERTS SET THESE AT 80 AND 300 ADVANCED ALERTS USING DEXCOM G6 FOR TREATMENT DECISIONS THE BASICS BEYOND THE BASICS TROUBLESHOOTING SENSOR GLUCOSE READINGS TRANSMITTER ERRORS ADHESIVE TRAVEL MRI/CAT SCAN/DIATHERMY-NEED TO REMOVE HOW TO GET HELP DEXCOM TECHNICAL SUPPORT DEXCOM CARE TEAM WEB-BASED EDUCATION ENDOCRINE OFFICE STAFF HANDOUTS GIVEN: Dexcom Dedicated Phone Line For [facility] patients Sensor change guide--step by step instructions Transmitter change guide--step by step instructions LOCATION OF WHERE SENSOR WAS PLACED:left arm SENSOR NO:[id number] Date: 10/31/24 REviewed the BG data from the sensor time in target at 87% which is excellent. At this time may trial to reduce and/or eliminate insulin glargine. Pt has very low trends in early mornning hours. Pt was provided w/ instructions. Pt ran out of pioglitazone but likely no longer needed as pt's time in target is >80% without it. f/up in 1 month. DIABETES A1c is below goal of <7% - Medication management Diabetes - CONTINUE empagliflozin 25 mg daily in AM - eGFR 43ml/min on 06/28 - REDUCE Insulin glargine (vial) to 8 units daily in HS- may further reduce the dose by 2 units every 3 days then stop while monitoring the FBG levels. - CONTINUE Semaglutide 0.5 mg weekly (Fridays) - Reviewed [place] lab result - Monitor for s/sx hypoglycemia [...] of Preventive Care: Most recent [facility] aide[facility]; sees Dr. Villalpando every 11 weeks Most recent visit to [facility]ometry: [facility]; does not report any NPDR or DR Clinic's Next Scheduled Follow-up: December 2024 EDUCATION -A shared decision-making approach was used in the development of this plan, involving the [place], clinician, and any caregivers present. The [place] was provided the opportunity express questions or concerns, and the plan was adjusted as needed to address these concerns. -Reviewed with [place] any new medications, changes to the medication list, education, and plan from today's visit. Patient (and/or caregiver) verbalized understanding of the plan, including possible known risks and benefits, and had no additional questions. No barriers; Patient understands and agrees to current treatment plan. If he has any questions, concerns, or changes in current health status he will call or come [facility] to the [facility]. FUTURE APPOINTMENTS: 01/22/2025 08:00 [facility] 1 02/05/2025 10:00 [facility] PACT 5 04/02/2025 08:00 [facility] 1 DM type is : DMII Length of Visit: 30 minutes PBM PharmD Pharmacotherapy Rem V12: PHARMACIST INTERVENTIONS: TYPE 2 DIABETES MELLITUS Medication Intervention(s) Adjust dose or frequency of current medication due to hypoglycemia Plan: reduce dose of glargine and potentially eliminate Medication monitoring, no dosage change required, continue to monitor and assess /marisela/ KELLY GO CLINICAL NITRATE OPERATOR Signed: 10/31/2024 12:18 Receipt Acknowledged By: 11/02/2024 12:27 /marisela/ PARAS BENNETT NP NURSE PRACTITIONER for KELLY BALDERRAMA
--- OUTSIDE RECORDS SUMMARY | 2024-11-07 14:21 | XMS_ITS | Encounter Summary ---
Author Name [facility] [place] Organization [facility] [place] Address [address] [place] [id number] Care Team Providers Care Security Nurse Name Role Phone WILIAM BERMAN Primary Care [...] Flood's Name Patient's Relationship to Policy Flood [facility] HEALTH [facility] ([facility]) MEDICARE ADVANTAGE [facility] (R) Sep 05, 2012 HAMPD [id number] PATRICK POLK PATIENT [facility] (WNR) MEDICARE ADVANTAGE [facility] (WNR) Sep 05, 2012 [id number] PATRICK POLK PATIENT Selected Encounter This section includes the information on record at [place] for the Encounter. Date/Time Encounter Type Encounter Description Reason Provider Source Sep 19, 2024 12:00 PM MTMS BY PHARM ADDL 15 MIN CLINICAL PHARMACY ICD-10-CM E11.9 Type 2 diabetes mellitus without complications CRYS GO Lor Encounter Template Text not used by [place] Assessments - Encounter Diagnoses This section includes the primary and secondary diagnoses documented for the Encounter. Date/Time Primary/Secondary Diagnosis Diagnosis Name Provider Source Sep 19, 2024 12:37 PM PRIMARY Type 2 diabetes mellitus without complications HALEY GO [place] Plan of Treatment: Future Appointments (+ 6 months) and Future Tests (+/- 45 days) The Plan of Treatment section includes future care activities for the patient [facility] [place] [facility] This section includes future appointments and future orders which are active, pending or scheduled. Future Appointments This section includes appointments that were scheduled to occur 6 months from the date of the Encounter, up to a maximum of 20 appointments. The data comes from all [facility] facilities. Appointment Date/Time Appointment Type Appointme nt Facility Name Oct 17, 2024 08:00 AM AMBULATORY - MEDICINE [facility] Oct 26, 2024 08:00 AM AMBULATORY - MEDICINE [facility] Oct 31, 2024 11:30 AM AM[place]ORY [place] [facility] [place] [facility] Nov 09, 2024 10:10 AM AM[place]UL[place]ORY [place]IC[place] [facility] [facility] Nov 21, 2024 11:00 AM AMBULATORY - MEDICINE [facility] Dec 12, 2024 11:00 AM AMBULATORY [place]ICINE [place] [facility] January 22, 2025 08:00 AM AMBULATORY - MEDICINE [facility] Feb 05, 2025 10:00 AM [facility] Active, Pending, and Scheduled Orders This section includes a listing of several types of active, pending, and scheduled orders, including clinic medications orders, diagnostic test orders, procedure orders and consult orders; where the start date of the order is 45 days before the date of the Encounter or 45 days after the date of theEncounter. The data comes from all [facility]. Test Date/Time Test Type Test Details Facility Name Oct 10, 2024 04:30 PM Consult Order [facility]-UROLOGY Cons Photographic Laboratory Technician's Choice [place] Lab Results: +/- 30 days of the encounter This section includes the Chemistry and Hematology Lab Results on record with [place] for the patient. Radiology Reports and Pathology Reports are provided separately, in subsequent sections. Lab Results This section contains the Chemistry/Hematology Results that were resulted 30 days before or 30 daysafter the date of the Encounter. Date/Time Source Result Type Result - Unit Interpretation Reference Range Comment Sep 19, 2024 12:43 PM [place] [facility] HEMOGLOBIN A1C PANEL Specimen Type: BLOOD Comment: [...] Sep 19, 2024 12:20 PM Reporting Lab: [address] [address] Performing Lab: [address] [address] HEMOGLOBIN A1C 6.7 H 4.0-5.6 Sep 19, 2024 12:43 PM [facility] BASIC METABOLIC PANEL (non-fasting) Specimen Type: SERUM Comment: Hemolysis present may falsly elevate Potassium Total and Direct Bili, Iron, AST, %Fe. Ordering Provider: HALEY GO Report Released Date/Time: Sep 19, 2024 12:20 PM Reporting Lab: [address] [address] Performing Lab: [address] [address] UREA NITROGEN 22 mg/dL 7-25 GLUCOSE 100 [...] and tobacco- related health factors from the [place] facility where the Encounter took place. Current Smoking Status This section includes the most current smoking, or tobacco-related health factor, from the [place] facility where the Encounter took place. Date/Time Current Smoking Status Comment Facil ity Aug 11, 2023 09:00 AM VA-TOBACCO USER EVERY DAY [place] Tobacco Use History This section includes a history of the smoking, or tobacco-related health factors, that were collected on or before the date of the Encounter. The data comes from the [place] facility where the Encounter took place. Date/Time Smoking Status/Tobacco Use Comment [facility] Aug 11, 2023 09:00 AM VA-TOBACCO USE 30 YEARS OR MORE [place] Aug 11, 2023 09:00 AM VA-TOBACCO USE ADVICE [place] Aug 11, 2023 09:00 AM VA-TOBACCO USE RADIO BOARD OPERATOR NO [place] Aug 11, 2023 09:00 AM VA-TOBACCO USE MED NO [place] Aug 11, 2023 09:00 AM VA-TOBACCO USER EVERY DAY [place] Aug 12, 2022 09:00 AM VA-TOBACCO USE 30 YEARS OR MORE [place] Aug 12, 2022 09:00 AM VA-TOBACCO USE ADVICE [place] Aug 12, 2022 09:00 AM VA-TOBACCO USE RADIO BOARD OPERATOR NO [place] Aug 12, 2022 09:00 AM VA-TOBACCO USE MED [facility] Aug 12, 2022 09:00 AM VA-TOBACCO USE [place] 30 MIN OF [facility] Aug 12, 2022 09:00 AM VA-TOBACCO USER EVERY DAY [place] Aug 13, 2021 09:30 AM VA-TOBACCO USE 30 YEARS OR MORE [place] Aug 13, 2021 09:30 AM VA-TOBACCO USE ADVICE [place] Aug 13, 2021 09:30 AM VA-TOBACCO USE RADIO BOARD OPERATOR NO [facility] 09, 2021 09:30 AM VA-TOBACCO USE MED [facility] Aug 13, 2021 09:30 AM VA-TOBACCO USE [place] 30 MIN OF [facility] Aug 13, 2021 09:30 AM VA-TOBACCO USER EVERY DAY [place] Jun 23, 2018 09:30 AM VA-TOBACCO USE 30 YEARS OR MORE [place] Jun 23, 2018 09:30 AM VA-TOBACCO USE ADVICE [place] Jun 23, 2018 09:30 AM VA-TOBACCO USE RADIO BOARD OPERATOR NO [place] Jun 23, 2018 09:30 AM VA-TOBACCO USE MED NO [place] Jun 23, 2018 09:30 AM VA-TOBACCO USE [place] 30 MIN OF [facility] Jun 23, 2018 09:30 AM VA-TOBACCO USER EVERY DAY [place] Jun 23, 2018 05:05 AM VA-TOBACCO DOESNT USE WI 30 MIN [facility] Jun 23, 2018 05:05 AM VA-TOBACCO USE 30 YEARS OR MORE [place] Jun 23, 2018 05:05 AM VA-TOBACCO USE ADVICE [place] Jun 23, 2018 05:05 AM VA-TOBACCO USE RADIO BOARD OPERATOR NO [place] Jun 23, 2018 05:05 AM VA-TOBACCO USE MED NO [place] Jun 23, 2018 05:05 AM VA-TOBACCO USER EVERY DAY [place] Jun 24, 2017 08:28 AM CURRENT SMOKER cigarettes 3/4 pack daily [place] Jun 24, 2017 08:28 AM V1-PT NOT INTEREST ED IN QUIT TOBACCO USE [place] May 21, 2016 09:13 AM V1-PT NOT INTEREST ED IN QUIT TOBACCO USE [place] Sep 02, 2015 03:57 PM CURRENT SMOKER HALF A PACK A DAY [place] Sep 02, 2015 03:57 PM V1-PT NOT INTEREST ED IN QUIT TOBACCO USE [place] Advance Directives: All historical and current Section Date Range: From patient's date of to the date document was created. This section includes ALL of a patient's completed or amended [place] Advance and Rescinded Directives. The entries below indicate that a directive exists for the patient, but an actual copy is not included with this document. The data comes from all [place] facilities. Date Advance Directives Provider Source Sep 26, 2015 ADVANCE DIRECTIVE BECCADO ALONDRALIBRADO LOBATO [place] Encounter Notes: All associated encounter notes This section contains the clinical notes associated to the Encounter. Date/Time Encounter Note(s) Provider Source Sep 19, 2024 12:19 PM PHARMACY OUTPATIEN T NOTE: LOCAL TITLE: PHARMACY CLINIC NOTE STANDARD TITLE: PHARMACY OUTPATIENT NOTE DATE OF NOTE: SEP 19, 2024@12:19 ENTRY DATE: SEP 19, 2024@12:19:23 AUTHOR: KELLY GO COSIGNER: URGENCY: STATUS: COMPLETED Patient Name: PATRICK POLK was seen via F for new visit for diabetes management treatment. : Dec Age: 78 Sex: MALE Race: WHITE Subjective: Pt presents for f/up; and dexcom training. Pt's has Altzheimers she has good days and bad days. Per prev: Pt is new to [facility]. He is followed by outside Enodcrinologist from [facility]. Pt's main complaints are his GI issues [...] without obstruction 2. Vitamin D Deficiency (SCT [id number]) 3. Exposure to potentially hazardous substance 4. [...] 30 mg daily - Insulin glargine (vial) 20 units daily in HS usually after supper 5-6 PM - pt self-reduced since bg very low - Semaglutide 0.5 mg weekly (Fridays) [...] - 50 ---- LIPID PANEL ---- SERUM Nov 222023 08:11 Units Ranges CHOL 162 mg/dL <7 [...] week ; this AM fasting 86 mg/dl NUTRITION. Diet Patterns: patient eats on avg. [...] USE VIEW HOME SCREEN SMART DEVICE SETTINGS BEHAVIORAL TECHNICIAN SET UP BEHAVIORAL TECHNICIAN SET UP HOW/WHEN TO TO USE VIEW HOME SCREEN BEHAVIORAL TECHNICIAN DEVICE SETTINGS JOLIE AND BEHAVIORAL TECHNICIAN TREND ARROWS JOLIE AND BEHAVIORAL TECHNICIAN TREND GRAPHS END SENSOR SESSION REMOVE SENSOR [...] WHERE SENSOR WAS PLACED:left arm SENSOR NO:[id number] Pt reports the BG low <100 mg/dl; recommend to further reduce insulin glargine. f/up in October to complete appropriate adjustments. Pt to repeat BMP today. DIABETES A1c is below goal of <7% - Medication management Diabetes - empagliflozin 25 mg daily in AM - eGFR 43ml/min on 06/28 - pioglitazone 30 mg daily - REDUCE Insulin glargine (vial) to 18 units daily in HS usually after supper 5-6 PM - Semaglutide 0.5 mg weekly (Fridays) - Reviewed [place] lab result - Monitor for s/sx hypoglycemia [...] of Preventive Care: Most recent visit to ballistics professor: [facility]; sees Dr. Villalpando every 11 weeks Most recent visit to optometry: [facility]; does not report any NPDR or DR Clinic's Next Scheduled Follow-up: October 2024 No barriers; Patient understands and agrees to current treatment plan. If he has any questions, concerns, or changes in current health status he will call or come in to the [facility]. FUTURE APPOINTMENTS: 07/05/2024 11:30 CWM/SO/PACT 5 07/18/2024 08:00 CWM/SO/SANDRA/FAITH 10/17/2024 08:00 CWM/SO/PODIATRY/FAITH DM type is : t2d Length of Visit: 30 minutes PBM PharmD Pharmacotherapy Rem V12: PHARMACIST INTERVENTIONS: TYPE 2 DIABETES MELLITUS Medication Intervention(s) Adjust dose or frequency of current medication due to hypoglycemia Plan: reduce dose of insulin glargine Medication monitoring, no dosage change required, continue to monitor and assess /marisela/ KELLY GO CLINICAL MULTICULTURAL SERVICES LIBRARIAN Signed: 09/19/2024 12:46 Receipt Acknowledged By: 09/23/2024 22:52 /marisela/ WILIAM BERMAN MD PHYSICIAN KELLY GO [place]
--- OUTSIDE RECORDS SUMMARY | 2024-11-07 14:21 | XMS_ITS ---
Author Name Department of Veter[place] ns [place] Organization Department [place] Address [address] [place] [id number] Care Team Providers Care Art Department Head Name Role Phone WILIAM BERMAN Primary Care [...] Flood's Name Patient's Relationship to Policy Flood [facility] (WNR) MEDICARE ADVANTAGE [facility] (R) Sep 05, 2012 HAMPD [id number] PATRICK POLK PATIENT [facility] (WNR) MEDICARE ADVANTAGE [facility] (WNR) Sep 05, 2012 [id number] PATRICK POLK PATIENT Selected Encounter This section includes the information on record at [place] for the Encounter. Date/Time Encounter Type Encounter Description Reason Pro vider Source Dec 05, 2023 07:34 PM Outpatient Encounter ADMIN PAT ACTIVTIES (MASNONCT) IHE Encounter Template Text not used by [place] Plan of Treatment: Future Appointments (+ 6 [...] 20 appointments. The data comes from all [place] treatment facilities. Appointment Date/Time Appointment Type Appointme nt Facility Name January 18, 2024 08:00 AM AMBULATORY - MEDICINE [facility] Feb 06, 2024 02:00 PM AMBULATORY - MEDICINE [facility] Mar 15, 2024 08:40 AM AMBUL[facility]ORY - [facility] Mar 21, 2024 08:00 AM AMBULATORY - MEDICINE [facility] May 23, 2024 08:00 AM AMBULATORY - MEDICINE [facility] Lab Results: +/- 30 days of the encounter This section includes the Chemistry and Hematology Lab Results on record with [place] for the patient. Radiology Reports and Pathology Reports are provided separately, in subsequent sections. Lab Results This section contains the Chemistry/Hematology Results that were resulted 30 days before or 30 daysafter the date of the Encounter. Date/Time Source Result Type Result - Unit Interpretation Reference Range Comment Nov 23, 2023 08:11 AM [facility] [place] MICROALBUMIN CREATININE RATIO PANEL Spe cimen Type: URINE No comment entered. Ordering Provider: PARAS BENNETT Report Released Date/Time: Nov 22, 2023 09:32 AM Reporting [facility] [address] [address] Performing Lab: [address] [address] MICROALBUMIN/C REATININE RATIO 7.3 mg/g 0-29.9 MICROALBUMIN,Q UANTITATIVE 0.9 mg/dL RR UNAVAIL CREATININE URINE 122.60 mg/dL Nov 23, 2023 08:11 AM [facility] [place] CALCIUM Specimen Type: SERUM No comment entered. Ordering Provider: PARAS BENNETT Report Released Date/Time: Nov 22, 2023 09:32 AM Reporting [facility]: [facility] [address] [address] Performing Lab: [address] [address] CALCIUM 8.7 mg/dL 8.5-10.2 Nov 23, 2023 08:11 AM [place] URINALYSIS Specimen Type: URINE Comment: If Glucose = >500 and Ketones are positive, please alert the Physician. Ordering Provider: PARAS BENNETT Report Released Date/Time: Nov 22, 2023 09:32 AM Reporting Lab: [address] [address] Performing Lab: [address] [address] UA COLOR Light-Yellow Yellow UA APPEARANCE Clear Clear UA GLUCOSE >1000 mg/dL Negative UA KETONES NEGATIVE mg/dL Negative UA BLOOD NEGATIVE mg/dL Negative UA PROTEIN NEGATIVE mg/dL Negative UA NITRITE NEGATIVE mg/dL Negative UA BILIRUBIN NEGATIVE mg/dL Negative UA SPECIFIC GRAVITY 1.027 H 1.016-1.022 UA pH 5.5 5.0-9.0 UA UROBILINOGEN <2.0 mg/dL <2.0 UA LEUKOCYTE NEGATIVE Negative Nov 23, 2023 08:11 AM [facility] BASIC METABOLIC PANEL (non-fasting) Spe cimen Type: SERUM No comment entered. Ordering Provider: PARAS BENNETT Report Released Date/Time: Nov 22, 2023 09:32 AM Reporting Lab: [address] [address] Performing Lab: [address] [address] UREA NITROGEN 21 mg/dL 7-25 GLUCOSE 97 mg/dL 65-100 SODIUM 138 mmol/L 135-145 POTASSIUM 4.1 mmol/L 3.5-5.0 CHLORIDE 106 mmol/L 100-110 CO2 22 meq/L 20-30 CREATININE, Serum 1.47 mg/dL H 0.50-1.40 eGFR(CKD-EPI 2020) 48 mL/min L >60 Nov 23, 2023 08:11 AM [place] LIVER FUNCTION Specimen Type: SERUM No comment entered. Ordering Provider: PARAS BENNETT Report Released Date/Time: Nov 22, 2023 09:32 AM Reporting Lab: [address] [address] Performing Lab: [address] [address] PROTEIN,TOTAL 6.6 g/dL 6.0-8.3 ALBUMIN 3.6 g/dL 3.5-5.0 ALKALINE PHOSPHATASE 43 U/L 40-150 AST 19 U/L 5-34 ALT 19 U/L BILIRUBIN, TOTAL 0.8 mg/dL 0.2-1.2 Nov 23, 2023 08:11 AM [place] LIPID PANEL, NON FASTING Specimen Type: SERUM No comment entered. Ordering Provider: PARAS BENNETT Report Released Date/Time: Nov 22, 2023 09:32 AM Reporting Lab: [address] [address] Performing Lab: [address] [address] CHOLESTEROL 162 mg/dL TRIGLYCERIDE 138 mg/dL 0-150 LDL calculated 97 mg/dL 0-129 CHOL/HDL 4.4 HDL CHOLESTEROL 37 mg/dL L 40-60 Nov 23, 2023 08:11 AM [place] VITAMIN B12 Specimen Type: SERUM No comment entered. Ordering Provider: PARAS BENNETT Report Released Date/Time: Nov 22, 2023 09:32 AM Reporting Lab: [address] [address] Performing Lab: [address] [address] VITAMIN B12 503 pg/mL 200-900 Nov 23, 2023 08:11 AM [place] VITAMIN D (25-[place]) Specimen Type: SERUM No comment entered. Ordering Provider: PARAS BENNETT Report Released Date/Time: Nov 22, 2023 09:32 AM Reporting Lab: [address] [address] Performing Lab: [address] [address] VITAMIN D (25-[place]) <13 ng/mL L 20-50 Nov 23, 2023 08:11 AM [place] HEMOGLOBIN A1C PANEL Specimen Type: BLOOD Comment: Values obtained from A1C measurements can vary. For atypical A1C assays, a reported value of 7.0 could actually be between 6.72 and 7.28 if measured by a reference method. A reported value of 9.0 could actually be between 8.73 and 9.27. Ref: http://www.ngs p.org/CAPdata. asp Ordering Provider: PARAS BENNETT Report Released Date/Time: Nov 22, 2023 09:32 AM Reporting Lab: [facility] [address] [address] Performing Lab: [facility] [address] [address] HEMOGLOBIN A1C 6.7 H 4.0-5.6 Nov 23, 2023 08:11 AM [place] TSH Specimen Type: SERUM No comment entered. Ordering Provider: PARAS BENNETT Report Released Date/Time: Nov 22, 2023 09:32 AM Reporting Lab: [facility] [address] [address] Performing Lab: [facility] [address] [address] TSH 1.74 u[IU]/mL 0.35-5.00 Nov 23, 2023 08:11 AM [place] CBC AND DIFF (AUTO) Specimen Type: BLOOD No comment entered. Ordering Provider: PARAS BENNETT Report Released Date/Time: Nov 22, 2023 09:32 AM Reporting Lab: [facility] [address] [address] Performing Lab: [facility] [address] [address] WBC 5.90 10*3/uL 4.50-11.00 RBC 4.99 10*6/uL 4.23-5.66 HGB 15.7 g/dL 12.8-17 HCT 46.5 39.2-50.4 MCV 93.2 fL 82-99 MCHC 33.8 g/dL 30.8-35.1 PLT 238 10*3/uL 140-360 RDW-CV 13.6 12.0-16.0 [place], Abs 0.43 10*3/uL 0.30-1.10 MCH 31.5 pg 26.2-32.6 Neut % 53.7 43.7-75.8 Lymph % 34.4 14.0-42.3 [place] % 7.3 5.1-13.7 Eos % 3.4 0.4-6.8 Baso % 0.7 0.1-2.0 Neut, Abs 3.17 10*3/uL 2.20-7.60 Lymph, Abs 2.03 10*3/uL 1.00-3.20 Eos, Abs 0.20 10*3/uL 0.03-0.44 Baso, Abs 0.04 10*3/uL 0.01-0.13 Immature Gran % 0.5 0.0-0.7 Immature Gran, Abs 0.03 10*3/uL 0.00-0.06 Social History: Smoking Status (Most current) and Tobacco Use (All prior to encounter date) This section includes the most current, and the historical, smoking and tobacco- related health factors from the [place] facility where the Encounter took place. Current Smoking Status This section includes the most current smoking, or tobacco-related health factor, from the [place] facility where the Encounter took place. Date/Time Current Smoking Status Comment Facil ity Jul 18, 2020 11:41 AM VA-TOBACCO USER EVERY DAY [facility] Tobacco Use History This section includes a history of the smoking, or tobacco-related health factors, that were collected on or before the date of the Encounter. The data comes from the [place] facility where the Encounter took place. Date/Time Smoking Status/Tobacco Use Comment F acility Jul 18, 2020 11:41 AM VA-TOBACCO USE 30 YEARS OR MORE [facility] Jul 18, 2020 11:41 AM VA-TOBACCO USE ADVICE [facility] Jul 18, 2020 11:41 AM VA-TOBACCO USE [place] NO [place] [facility] [place] [facility] Jul 18, 2020 11:41 AM VA-TOBACCO USE MED NO [place] [facility] [place] [facility] Jul 18, 2020 11:41 AM VA-TOBACCO USER EVERY DAY [facility] Advance Directives: All historical and current Section Date Range: From patient's date of to the date document was created. This section includes ALL of a patient's completed or amended [place] Advance and Rescinded Directives. The entries below indicate that a directive exists for the patient, but an actual copy is not included with this document. The data comes from all [place] facilities. Date Advance Directives Provider Source Sep 26, 2015 [facility] Encounter Notes: All associated encounter notes This section contains the clinical notes associated to the Encounter. Date/Time Encounter Note(s) Provider Source Dec 05, 2023 08:40 PM ADDENDUM: LOCAL TITLE: Addendum STANDARD TITLE: ADDENDUM DATE OF NOTE: DEC 05, 2023@20:40:28 ENTRY DATE: DEC 05, 2023@20:40:29 AUTHOR: ALEYDA ONOFRE EXP COSIGNER: URGENCY: STATUS: COMPLETED [place] will need to submit a new Rx for requested med. Thank you /natali ONOFRE MD Primary Care Physician Signed: 12/05/2023 20:41 Receipt Acknowledged By: 12/06/2023 10:51 /natali MCFARLAND RN REGISTERED NURSE === --- Original Document --- 12/05/23 V1 PHARMACY CUSTOMER CARE MEDICATION RENEWAL: Date: Dec Division: [facility] referred by Pharmacy Call Center for medication renewal: Non-controlled/maintenanc e medication Medications requested: [id number] EMPAGLIFLOZIN 25MG TAB Defer to primary care provider To be mailed . Please review and renew if appropriate. *This note was generated by [facility] Pharmacy Customer Care. If you have any questions or need assistance, do not contact this author. Please refer all questions to your local, on-site pharmacy departments. /marisela/ BRANDEE LUU [place], [place]/Pharmacy Customer Care Signed: 12/05/2023 19:34 Receipt Acknowledged By: 12/06/2023 10:16 /natali MCFARLAND RN REGISTERED NURSE 12/05/2023 20:40 /natali ONOFRE MD Primary Care Physician 12/06/2023 ADDENDUM STATUS: COMPLETED Left a VM with Dr. Cesar's office to fax over a new script for the . /natali MCFARLAND RN REGISTERED NURSE Signed: 12/06/2023 10:16 ALEYDA ONOFRE [facility] Dec 05, 2023 07:34 PM PHARMACY NOTE: LOCAL TITLE: V1 PHARMACY CUSTOMER CARE MEDICATION RENEWAL STANDARD TITLE: PHARMACY NOTE DATE OF NOTE: DEC 05, 2023@19:34 ENTRY DATE: DEC 05, 2023@19:34:21 AUTHOR: BRANDEE LUU EXP COSIGNER: URGENCY: STATUS: COMPLETED V1 PHARMACY CUSTOMER CARE MEDICATION RENEWAL Has ADDENDA Date: Dec Division: [facility] referred by Pharmacy Call Center for medication renewal: Non-controlled/maintenanc e medication Medications requested: [id number] EMPAGLIFLOZIN 25MG TAB Defer to primary care provider To be mailed . Please review and renew if appropriate. *This note was generated by [facility] Pharm[facility] Customer [facility]. If you have any questions or need assistance, do not contact this author. Please refer all questions to your local, on-site pharmacy departments. /natali LUU [place], [place]/Pharmacy Customer Care Signed: 12/05/2023 19:34 Receipt Acknowledged By: 12/06/2023 10:16 /natali MCFARLAND RN REGISTERED NURSE 12/05/2023 20:40 /marisela/ ALEYDA ONOFRE MD Primary Care Physician 12/05/2023 ADDENDUM STATUS: COMPLETED will need to submit a new Rx for requested med. Thank you /natali ONOFRE MD Primary Care Physician Signed: 12/05/2023 20:41 Receipt Acknowledged By: 12/06/2023 10:51 /natali MCFARLAND RN REGISTERED NURSE 12/06/2023 ADDENDUM STATUS: COMPLETED Left a with Dr. Cesar's office to fax over a new script for the . /natali MCFARLAND RN REGISTERED NURSE Signed: 12/06/2023 10:16 12/12/2023 ADDENDUM STATUS: COMPLETED Contacted Dr. Cesar's office once again and was sent to . /natali MCFARLAND RN REGISTERED NURSE Signed: 12/12/2023 16:02 12/12/2023 ADDENDUM STATUS: COMPLETED Spoke with the and made him aware that Dr. Mallorys has been contacted in order to obtain this script and have been unable to do so. Advised trying to contact himself or go to his office directly in order to get this script. [place] was understanding and will speak with that provider's office. /marisela/ GABBY MCFARLAND RN REGISTERED NURSE Signed: 12/12/2023 16:09 BRANDEE LUU OR [facility]
--- OUTSIDE RECORDS SUMMARY | 2024-11-07 14:21 | XMS_ITS | Encounter Summary ---
Author Name Department of [place] Organization [place] of [place] Address [address] [place] [address] Care Team Providers Care Credit Risk Review Officer Name Role Phone WILIAM BERMAN Primary Care [...] Flood's Name Patient's Relationship to Policy Flood [facility] (WNR) MEDICARE ADVANTAGE [facility] (R) Sep 05, 2012 HAMPD [id number] PATRICK POLK PATIENT [facility] (WNR) MEDICARE ADVANTAGE [facility] (WNR) Sep 05, 2012 [id number] PATRICK POLK PATIENT Selected Encounter This section includes the information on record at [place] for the Encounter. Date/Time Encounter Type Encounter Description Reason Pro vider Source Oct 17, 2024 04:19 PM Outpatient Encounter PODIATRY IHE Encounter Template Text not used by [place] Plan of Treatment: Future Appointments (+ 6 months) and Future Tests (+/- 45 days) The Plan of Treatment section includes future care activities for the patient from all [place] treatmentfacilities. This section includes future appointments and future orders which are active, pending or scheduled. Future Appointments This section includes appointments that were scheduled to occur 6 months from the date of the Encounter, up to a maximum of 20 appointments. The data comes from all VA treatment facilities. Appointment Date/Time Appointment Type Appointme nt Facility Name Oct 26, 2024 08:00 AM AMBULATORY - MEDICINE [facility] Oct 31, 2024 11:30 AM [facility] Nov 09, 2024 10:10 AM [facility] - [facility] Nov 21, 2024 11:00 AM AM[facility]UL[facility]ORY - MEDICINE [facility] Dec 12, 2024 11:00 AM AMBULATORY - MEDICINE [facility] January 22, 2025 08:00 AM AMBULATORY [...] of theEncounter. The data comes from all [facility]. Test Date/Time Test Type Test Details Facility Name Oct 10, 2024 04:30 PM Consult Order [facility]-UR[facility] Cons Film Painter's Choice [facility] Lab Results: +/- 30 days of the [...] Range Comment Sep 19, 2024 12:43 PM [facility] HEMOGLOBIN A1C PANEL Specimen Type: BLOOD Comment: [...] Sep 19, 2024 12:20 PM Reporting Lab: [facility] [address] [facility] [address] Performing Lab: [facility] [address] [facility] [address] HEMOGLOBIN A1C 6.7 H 4.0-5.6 Sep 19, 2024 12:43 PM [facility] BASIC METABOLIC PANEL (non-fasting) Specimen Type: SERUM Comment: Hemolysis present may falsly elevate Potassium Total and Direct Bili, Iron, AST, %Fe. Ordering Provider: HALEY GO Report Released Date/Time: Sep 19, 2024 12:20 PM Reporting Lab: [facility] [address] [facility] [address] Performing Lab: [address] [address] UREA NITROGEN 22 mg/dL 7-25 GLUCOSE 100 [...] 2020 11:41 AM VA-TOBACCO USER EVERY DAY [facility] Tobacco Use History This section includes a history of the smoking, or tobacco-related health factors, that were collected on or before the date of the Encounter. The data comes from the [place] facility where the Encounter took place. 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 Date/Time Encounter Note(s) Provider Source Oct 17, 2024 04:19 PM CLERICAL NOTE: LOCAL TITLE: APPOINTMENT NO SHOW STANDARD TITLE: CLERICAL NOTE DATE OF NOTE: OCT 17, 2024@16:19 ENTRY DATE: OCT 17, 2024@16:19:24 AUTHOR: BRENDAN BERNSTEIN COSIGNER: URGENCY: STATUS: COMPLETED Patient Name: PATRICK POLK Patient SSN: [id number] Date and time of Appointment No show : 10/17/24 16:19 PATIENT PHONE - [phone] PHONE NUMBER [CELLULAR] - Patient's medical record was reviewed. Follow-up actions were determined and initiated: Please check/complete as applies: [X]Telephoned Directly [X]Re-scheduled for next available appt [ ]Sent a N0-show letter ( must call for appointment) [ ]Other (Emergent/Overbook, etc.): Additional Comments: Future Clinic Visits 10/26/2024 08:00 [facility] PODIATRY 1 10/31/2024 11:30 SPR PHARM PACT 2 01/22/2025 08:00 SPR PODIATRY 1 02/05/2025 10:00 SPR PACT 5 /marisela/ BRENDAN BERNSTEIN AMSA Signed: 10/17/2024 16:19 BRENDAN BERNSTEIN
--- OUTSIDE RECORDS SUMMARY | 2024-11-07 14:21 | XMS_ITS | Encounter Summary ---
Author Name Department [place] Organization [place] Address [address] [place] [id number] Care Team Providers Care Accounting Auditor Name Role Phone WILIAM BERMAN Primary Care [...] Flood's Name Patient's Relationship to Policy Flood [facility]) MEDICARE ADVANTAGE [facility] (R) Sep 05, 2012 HAM [id number] PATRICK POLK PATIENT [facility] (WNR) MEDICARE ADVANTAGE [facility] (R) Sep 05, 2012 [id number] PATRICK POLK PATIENT Selected Encounter This section includes the information on record at [place] for the Encounter. Date/Time Encounter Type Encounter Description Reason Provider Source Jul 18, 2024 08:00 AM OFFICE O/P EST LOW 20 MIN PODIATRY ICD-10-CM L60.0 Ingrowing nail ALICE CUEVAS Lor Encounter Template Text not used by VA Assessments - Encounter Diagnoses This section includes the primary and secondary diagnoses documented for the Encounter. Date/Time Primary/Secondary Diagnosis Diagnosis Name Provider Source Jul 18, 2024 08:19 AM PRIMARY Ingrowing nail ALICE CUEVAS KAY Jul 18, 2024 08:19 AM SECONDARY Pain in left toe(s) ALICE CUEVAS Jul 18, 2024 08:19 AM SECONDARY Pain in right toe(s) ALICE CUEVAS Jul 18, 2024 08:19 AM SECONDARY Type 2 diabetes w diabetic peripheral angiopath w/o gangrene ALICE CUEVAS Plan of Treatment: Future Appointments (+ 6 months) and Future Tests (+/- 45 days) The Plan of Treatment section includes future care activities for the patient from all [place] treatmentfacilities. This section includes future appointments and future orders which are active, pending or scheduled. Future Appointments This section includes appointments that were scheduled to occur 6 months from the date of the Encounter, up to a maximum of 20 appointments. The data comes from all [place] treatment facilities. Appointment Date/Time Appointment Type Appointme nt Facility Name Aug 22, 2024 10:00 AM [facility] Sep 19, 2024 12:00 PM [facility]INE [place] [facility] Oct 17, 2024 08:00 AM [facility]ULATORY - MEDICINE [facility] Oct 26, 2024 08:00 AM AMBULATORY - MEDICINE [facility] Oct 31, 2024 11:30 AM AM[facility]UL[facility]ORY - [facility]ICINE [place] [facility] Nov 09, 2024 10:10 AM [facility] - [facility]ICINE [place] [facility] Nov 21, 2024 11:00 AM [facility] Dec 12, 2024 11:00 AM AMBULATORY - MEDICINE [facility] Lab Results: +/- 30 days of the encounter This section includes the Chemistry and Hematology Lab Results on record with [place] for the patient. Radiology Reports and Pathology Reports are provided separately, in subsequent sections. Lab Results This section contains the Chemistry/Hematology Results that were resulted 30 days before or 30 daysafter the date of the Encounter. Date/Time Source Result Type Result - Unit Interpretation Reference Range Comment Jun 20, 2024 09:05 AM [facility] H PYLORI ANTIBODY Specimen Type: SERUM No comment entered. Ordering Provider: WILIAM EPPS Report Released Date/Time: Feb 12, 2024 06:47 PM Reporting Lab: [facility] [address] [facility] [address] Performing Lab: [facility] [address] [facility] [address] H PYLORI IgG NEGATIVE NEGATIVE Jun 20, 2024 09:05 AM [place] HEMOGLOBIN A1C PANEL Specimen Type: BLOOD Comment: [...] Feb 12, 2024 06:48 PM Reporting Lab: [address] [address] Performing Lab: [address] [address] HEMOGLOBIN A1C 6.6 H 4.0-5.6 Jun 20, 2024 09:05 AM [place] MICROALBUMIN CREATININE RATIO PANEL Spe cimen Type: URINE No comment entered. Ordering Provider: WILIAM EPPS Report Released Date/Time: Feb 12, 2024 06:48 PM Reporting Lab: [address] [address] Performing Lab: [address] [address] MICROALBUMIN/C REATININE RATIO 17.5 mg/g 0-29.9 MICROALBUMIN,Q UANTITATIVE 1.7 mg/dL RR UNAVAIL CREATININE URINE 97.12 mg/dL Jun 20, 2024 09:05 AM [place] BASIC METABOLIC PANEL (fasting) Specime n Type: SERUM No comment entered. Ordering Provider: WILIAM EPPS Report Released Date/Time: Feb 12, 2024 06:48 PM Reporting Lab: [address] [address] Performing Lab: [address] [address] UREA NITROGEN 24 mg/dL 7-25 GLUCOSE 126 [...] and tobacco- related health factors from the [place] facility where the Encounter took place. Current Smoking Status This section includes the most current smoking, or tobacco-related health factor, from the [place] facility where the Encounter took place. Date/Time Current Smoking Status Comment Facil [facility] Aug 11, 2023 09:00 AM VA-TOBACCO USER EVERY DAY [facility] Tobacco Use History This section includes a history of the smoking, or tobacco-related health factors, that were collected on or before the date of the Encounter. The data comes from the [place] facility where the Encounter took place. 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 [facility] Aug 11, 2023 09:00 AM VA-TOBACCO USE MED [facility] Aug 11, 2023 09:00 AM VA-TOBACCO USER EVERY DAY [place] Aug 12, 2022 09:00 AM VA-TOBACCO USE 30 YEARS OR MORE [facility] Aug 12, 2022 09:00 AM VA-TOBACCO USE ADVICE [facility] Aug 12, 2022 09:00 AM VA-TOBACCO USE 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 HOUSEMAN NO [place] Aug 12, 2022 09:00 AM VA-TOBACCO USE MED [facility] Aug 12, 2022 09:00 AM VA-TOBACCO USE WI 30 MIN OF WAKEUP [facility] Aug 12, 2022 09:00 AM VA-TOBACCO USER EVERY DAY [facility] Aug 13, 2021 09:30 AM VA-TOBACCO USE 30 YEARS OR MORE [facility] Aug 13, 2021 09:30 AM VA-TOBACCO USE ADVICE [facility] Aug 13, 2021 09:30 AM VA-TOBACCO USE 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 [place] Aug 13, 2021 09:30 AM VA-TOBACCO USE MED [facility] Aug 13, 2021 09:30 AM VA-TOBACCO USE WI 30 MIN OF WAKEUP [place] Aug 13, 2021 09:30 AM VA-TOBACCO USER EVERY DAY [facility] Jun 23, 2018 09:30 AM VA-TOBACCO USE 30 YEARS OR MORE [facility] Jun 23, 2018 09:30 AM VA-TOBACCO USE ADVICE [facility] Jun 23, 2018 09:30 AM VA-TOBACCO USE 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 [place] Jun 23, 2018 09:30 AM VA-TOBACCO USE MED NO [place] Jun 23, 2018 09:30 AM VA-TOBACCO USE [place] 30 MIN OF [facility] Jun 23, 2018 09:30 AM VA-TOBACCO USER EVERY DAY [place] Jun 23, 2018 05:05 AM VA-TOBACCO DOESNT USE WI 30 MIN [facility] Jun 23, 2018 05:05 AM VA-TOBACCO USE 30 YEARS OR MORE [facility] Jun 23, 2018 05:05 AM VA-TOBACCO USE ADVICE [facility] Jun 23, 2018 05:05 AM VA-TOBACCO USE 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 HOUSEMAN NO [place] Jun 23, 2018 05:05 AM VA-TOBACCO USE MED NO [facility] Jun 23, 2018 05:05 AM VA-TOBACCO USER EVERY DAY [facility] Jun 24, 2017 08:28 AM CURRENT SMOKER cigarettes 3/4 pack daily [facility] Jun 24, 2017 08:28 AM V1-PT NOT INTEREST ED IN QUIT TOBACCO USE [facility] May 21, 2016 09:13 AM V1-PT NOT INTEREST ED IN QUIT TOBACCO USE [place] Sep 02, 2015 03:57 PM CURRENT SMOKER HALF A PACK A DAY [facility] Sep 02, 2015 03:57 PM V1-PT NOT INTEREST ED IN QUIT TOBACCO USE [facility] Advance Directives: All historical and current Section Date Range: From patient's date of to the date document was created. This section includes ALL of a patient's completed or amended VA Advance and Rescinded Directives. The entries below indicate that a directive exists for the patient, but an actual copy is not included with this document. The data comes from all [place] facilities. Date Advance Directives Provider Source Sep 26, 2015 ADVANCE DIRECTIVE SRINIVAS ANDERSON [facility] Encounter Notes: All associated encounter notes This section contains the clinical notes associated to the Encounter. Date/Time Encounter Note(s) Provider Source Jul 18, 2024 07:18 AM PODIATRY NOTE: LOCAL TITLE: PODIATRY NOTE STANDARD TITLE: PODIATRY NOTE DATE OF NOTE: JUL 18, 2024@07:18 ENTRY DATE: JUL 18, 2024@07:18:05 AUTHOR: ALICE CUEVAS EXP COSIGNER: URGENCY: STATUS: COMPLETED NOTE: HAS RECEIVED BOTH COVID VACCINES + BOOSTER AT [facility] LAST SEEN FOR TREATMENT: 05/23/2024 S: Pt. is a 78 yo alert WDWN CAUC MALE who is seen for continued podiatric EVALUATION & care of severely incurvated nails. There has been NO pain as he is seen for timely podiatric care in an attempt to avoid pain and prevent infection due to NEUROPATHY. There is no history of trauma. There have been no recent changes in the patient's medical condition or medications UPON questioning today. Pt. is at risk of injury with self-care due to the presence of TYPE I DM. *DENIES ANY RECENT CHANGES IN MEDS-SEE RECONCILIATION BELOW-PERFORMED THIS DATE TOBACCO=1/2 PACK PER DAY O: Exam reveals skin color & TEXT to be WNL, temp is diminished WARM TO COOL PROXIMAL TO DISTAL. There is absence of hair noted. Nails are severely incurvated with rubor in the medial & lateral nail grooves and pain on palpation. Affected nails are as follows: 1-2-3-4-5 bilat. There are no hyperkeratosis or superficial lesions noted. There are no other gross LE changes in status noted this date. PMH: Active problems - Computerized Problem List is the source for the following: *NOTE: REVIEWED ABOVE NOTING NO CHANGES SINCE PREVIOUS VISIT PLEASE SEE PROBLEM LIST TEMPLATE FOR COMPLETE LIST NEEDED. *NOTE: A1c = 6.6 (LAST TAKEN: 06/2024) FBS= 102AM RISK VALUE =3 HEIGHT: 76.5 in [194.3 cm] (05/21/2016 09:12) WEIGHT: 287.6 lb [130.7 kg] (05/21/2016 09:12) VASCULAR: EXAM REVEALS DP & PT pulses to be absent non-palpable bilateral. CFT < 3 sec x 10. There is no edema and there are no varices noted. NEUROLOGICAL: Exam reveals S/D, vibratory, light touch & proprioception sensations to be equal & symmetrical bilaterally & diminished for an individual of this age and present physical-medical status. Protective sensation utilizing a Woodridge-Florencio lOg monofilament is 10/10 bilateral. DISCUSSED THE FACT THAT HIS NEUROPATHY IN HANDS AND FEET ARE WORSENING MUSCULOSKELETAL: Exam reveals muscle strength and tone to be equal & symmetrical bilaterally & WNL for an individual of this age and present physical-medical condition. There is pain free ROM at all joints distal to and including the ankle. 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 Class findings have been met in a high risk individual and the systemic condition has resulted in circulatory impairment & areas of desensitization. P: Treatment consists of trimming-reduction of all nails INCLUDING HALLUX BILATERAL via manual and electric means with excision of offending nail borders. Applied ammonium lactate 12% lotiont ot dry skin. All care rendered without complications & pt. progressing well after podiatric care this date & will be scheduled for periodic care in an attempt to prevent future complications due to the underlying medical conditions. Tx. By a non-professional could be extremely hazardous to the & patient's well-being due to the underlying medical condition. RTC 8 WEEKS NAILS NEEDED 'S ATTENTION THEY WERE TOO LONG AND PAINFUL ( 10/17 & @8AM) DISCUSSED HIS 'S DETERIORATION WITH ALZHEIMERS AND IS WORSENING *REVIEWED HOME FOOT CARE FEET ARE IN EXCELLENT CONDITION AND I PROVIDED HIM WITH WRITTEN RECOMMENDATIONS FOR FOOT CARE TO BE REVIEWED AT HOME (FOOT CARE TIPS). *DISCUSSED NEW PROTOCOLS AND CALLED BRENDAN TODAY FOR RESCHEDULING I DISCUSSED THE FINDINGS & PLAN WITH PATIENT (UNCHANGED SINCE PREVIOUS VISIT) & PATIENT AGREES AND UNDERSTANDS PLAN & RECEIVED MIRROR Medication Reconciliation: PERFORMED TODAY - SEE BELOW. Outpatient: Has the patient been taking medications as documented in the EMLR? YES: The patient has been taking medications as documented in the EMLR. Essential Medication List for Review used to complete this medication reconciliation. INCLUDED IN THIS LIST: Alphabetical list of active outpatient prescriptions dispensed from this VA (local) and dispensed from another [place] or DoD facility (remote) as well as inpatient orders (local, pending and active), local clinic medications, locally documented non-VA medications, and local prescriptions that have or been discontinued in the past 90 days. - All changes in medications, including all non-VA/Herbal/OTC medications were entered into CPRS. - If there were any medications the patient should no longer take, they were discontinued. - The patient/caregiver was instructed to update this list, discard old lists, and take this list to the next appointment, whether with a VA or non-VA provider. JLV Link Data on this list may not be complete. Please check JLV. Allergies/ADRs (Tool #5) FACILITY ALLERGY/ADR -------- No Remote Allergy/ADR Data available for this patient [place] [facility] [place] [facility] No Known Allergies Med Recon NoGlossary (Tool #1) INCLUDED IN THIS LIST: Alphabetical list of active outpatient prescriptions dispensed from this [place] (local) and dispensed from another VA or DoD facility (remote) as well as inpatient orders (local pending and active), local clinic medications, locally documented non-VA medications, and local prescriptions that have or been discontinued in the past 90 days. Non-VA Meds Last Documented On: Jun 28, 2024 NOTE The display of VA prescriptions dispensed from another VA or DoD facility (remote) is limited to active outpatient prescription entries matched to National Drug File at the originating site and may not include some items such as investigational drugs, compounds, etc. NOT INCLUDED IN THIS LIST: Medications self-entered by the patient into personal health records (i.e. [employer]) are NOT included in this list. Non-VA medications documented outside this [place], remote inpatient orders (regardless of status) and remote clinic medications are NOT included in this list. The patient and provider must always discuss medications the patient is taking, regardless of where the medication was dispensed or obtained. Non-VA ASPIRIN 81MG EC TAB TAKE ONE TABLET BY MOUTH DAILY Medication prescribed by Non-VA provider. Non-VA ATORVASTATIN CALCIUM 40MG TAB TAKE ONE-HALF TABLET BY MOUTH ONCE DAILY Non-VA medication not recommended by VA provider. OUTPT BENAZEPRIL HCL 20MG TAB (Status = Active/Suspended) TAKE ONE TABLET BY MOUTH ONCE DAILY FOR HIGH BLOOD PRESSURE Rx# [id number] Last Released: 05/12/24 Qty/Days Supply: Rx Expiration Date: 02/06/25 Refills Remainin Indication: FOR HIGH BLOOD PRESSURE OUTPT CHOLECALCIF 50MCG (D3-2,000UNIT) TAB (Status = Active/Suspended) TAKE ONE TABLET BY MOUTH ONCE DAILY FOR VITAMIN SUPPLEMENTATION Rx# [id number] Last Released: 05/12/24 Qty/Days Supply: Rx Expiration Date: 02/06/25 Refills Remainin Indication: FOR VITAMIN D DEFICIENCY OUTPT EMPAGLIFLOZIN 25MG TAB (Status = Active) TAKE ONE TABLET BY MOUTH ONCE DAILY FOR TYPE 2 DIABETES MELLITUS Rx# [id number] Last Released: 06/19/24 Qty/Days Supply: Rx Expiration Date: 12/26/24 Refills Remainin Indication: FOR TYPE 2 DIABETES MELLITUS OUTPT FENOFIBRATE 145MG TAB (Status = Active) TAKE ONE TABLET BY MOUTH ONCE DAILY FOR HIGH CHOLESTEROL Rx# [id number] Last Released: 07/17/24 Qty/Days Supply: Rx Expiration Date: 02/06/25 Refills Remainin Indication: FOR HIGH CHOLESTEROL OUTPT FINASTERIDE 5MG TAB (Status = Active) TAKE ONE TABLET BY MOUTH ONCE DAILY Rx# [id number] Last Released: 05/01/24 Qty/Days Supply: Rx Expiration Date: 03/16/25 Refills Remainin OUTPT INSULIN,GLARGINE-YFGN 100UNIT/ML INJ (Status = Active) INJECT 75 UNITS SUBCUTANEOUSLY ONCE DAILY FOR TYPE 2 DIABETES MELLITUS THIS REPLACES INSULIN DETEMIR Rx# [id number] Last Released: 07/02/24 Qty/Days Supply: Rx Expiration Date: 09/02/24 Refills Remainin Indication: FOR TYPE 2 DIABETES MELLITUS Non-VA OTHER CAP/TAB TAKE ONE TOUCH ULTRA BLUE IN VITRO STRIP BY MOUTH FOUR TIMES A DAY Medication prescribed by Non-VA provider. Non-VA PIOGLITAZONE HCL 30MG TAB TAKE ONE TABLET BY MOUTH DAILY Medication prescribed by Non-VA provider. OUTPT SEMAGLUTIDE 0.25MG/0.375ML INJ PEN 3ML (Status = Active) INJECT 0.5MG SUBCUTANEOUSLY ONCE A WEEK FOR TYPE 2 DIABETES MELLITUS Rx# [id number] Last Released: 06/07/24 Qty/Days Supply: 10/02 Rx Expiration Date: 08/02/24 Refills Remainin Indication: FOR TYPE 2 DIABETES MELLITUS OUTPT TAMSULOSIN HCL 0.4MG CAP (Status = Active/Suspended) TAKE ONE CAPSULE BY MOUTH ONCE DAILY FOR ENLARGED PROSTATE Rx# [id number] Last Released: 05/12/24 Qt Supply: Rx Expiration Date: 02/06/25 Refills Remainin Indication: FOR ENLARGED PROSTATE SUPPLIES OUTPT GLUCOSE SENSOR DEXCOM G7 (Status = On Hold) USE 1 SENSOR DIRECTED EVERY 10 DAYS Rx# [id number] Last Released: Qt Supply: Rx Expiration Date: 07/05/25 Refills Remainin OUTPT INSULIN SYRINGE 1ML 30G 12MM (Status = Active) USE 1 SYRINGE SUBCUTANEOUSLY DAILY FOR INSULIN INJECTIONS Rx# [id number] Last Released: 07/09/24 Qt Supply: Rx Expiration Date: 10/27/24 Refills Remainin /es/ ALICE CUEVAS DPM RETAIL PERFORMANCE SPECIALIST Signed: 07/18/2024 08:19 ALICE CUEVAS [place]
--- OUTSIDE RECORDS SUMMARY | 2024-11-07 14:21 | XMS_ITS ---
Author Organization [facility] Address [address] [place] [address] Care Team Providers Care Decal Transferrer Name Role Phone TOM POTTER Primary Care Provider Tom Potter Unavailable [phone] Allergies No Known Allergies REASON FOR VISIT FOLLOW UP, LABS DONE NOVEMBER 2022, EKG DUE Medications Medication SIG (Take, Route, Frequency, Duration) Notes Start Date End Date Status Benazepril HCl 20 MG TAKE 1 TABLET BY MOUTH EVERY DAY Orally Once a day for 90 days Active Vitamin B 12 500 MCG 2 tablet Orally Once a day Active Levemir 100 UNIT/ML Subcutaneous 70 UNITS DAILY Active Aspirin 81 MG 1 tablet Orally Once a day Active Trulicity 0.75 MG/0.5ML as directed Subcutaneous Active amLODIPine Besylate 5 MG TAKE 1 TABLET BY MOUTH EVERY DAY Orally Once a day for 90 days Not-Taking Ampicillin 500 MG 1 capsule 1 hour before or 2 hours after a meal Orally BID for 10 days Active metroNIDAZOLE 250 MG 1 tablet Orally Three times a day for 10 day(s) 06/01/2023 06/11/2023 Active glipiZIDE ER 10 MG 1 tablet Orally Once a day for 30 days Not-Taking Clarithromycin 500 MG 1 tablet Orally every 12 hrs for 10 day(s) 06/01/2023 06/11/2023 Active Omeprazole 40 MG TAKE 1 CAPSULE BY MOUTH ONCE DAILY 30 MINUTES BEFORE MORNING MEAL. for 90 Not-Taking Aspirin 81 81 MG 1 tablet Orally Once a day Not-Taking Ozempic (0.25 or 0.5 MG/DOSE) 2 MG/1.5ML as directed Subcutaneous Not-Taking Atorvastatin Calcium 20 MG TAKE 1 TABLET BY MOUTH EVERY DAY for 90 Active metFORMIN HCl 1000 MG TAKE 1 TABLET TWIC E A DAY WITH FOOD for 90 Not-Taking Fenofibrate 160 MG TAKE 1 TABLET BY MOUTH EVERY DAY WITH A MEAL for 90 Active Tamsulosin HCl 0.4 MG 1 capsule Orally Once a day for 90 days Active Pioglitazone HCl 30 MG TAKE 1 TABLET BY MOUTH EVERY DAY for 90 Active Social History Tobacco Use: Social History Observation Description Date Details (start date - stop date) Current Smoker NA - NA Tobacco Use/Smoking Question Answer Notes Are you a current smoker How often do you smoke cigarettes? every day How many cigarettes a day do you smoke? 11-20 How soon after you wake up do you smoke your fir st cigarette? 31-60 minutes Are you interested in quitting? Not ready to loretta t Additional Findings: Tobacco User Chain smoker Alcohol Screen (Audit-C) Question Answer Notes Did you have a drink contain ing alcohol in the past year? Yes How often did you have a dri nk containing alcohol in the past year? Monthly or less (1 point) How many drinks did you have on a typical day when you were drinking in the past year? 1 or 2 drinks (0 point) How often did you have 6 or more drinks on one occasion in the past year? Never (0 point) Points 1 Interpretation Negative Tobacco use other than smoking: Question Answer Notes Are you an other tobacco user? Yes Vital Signs Temperature 98.5 degrees Fahrenheit 06/01/20 23 Blood pressure systolic 132 mm Hg 06/01/20 23 Blood pressure diastolic 68 mm Hg 023 Heart Rate 70 /min 06/01/2023 Height 76 in 06/01/2023 Weight 268 lbs 06/01/2023 BMI 32.62 kg/m2 06/01/2023 Oximetry 97 % 06/01/2023 Encounters Encounter Location Date Provider Diagnosis [address] [place] [address] 06/01/2023 TOM POTTER Hypercholesterolemia E78.00 ; Type 2 diabetes mellitus with diabetic chronic kidney disease E11.22 ; Diabetic neuropathy E11.40 ; Essential hypertension I10 ; Dyslipidemia E78.5 ; BPH loc w urin obs/LUTS N40.1 ; Tobacco use Z72.0 and Epigastric discomfort R10.13 Assessments Encounter Date Diagnosis (ICD Code) Assessment Notes Treatment Notes Treatment Clinical Notes Section Notes 06/01/2023 Hypercholesterolemia (ICD-10 - E78.00) lipids LDL high. Change simva to atorvatsatin 06/01/2023 Type 2 diabetes mellitus with diabetic chronic kidney disease (ICD-10 - E11.22) 06/01/2023 Diabetic neuropathy (ICD-10 - E11.40) A1C 8.25. stressed foot care. has numbness but minimal pain. no meds needed. Dr Hillman began him on B12 supplement. Sees aitchbone breaker at [place] 06/01/2023 Essential hypertensi on (ICD-10 - I10) bp normal cont same meds . PIYUSH diet encouraged. Urged to walk or cycle for exercise. 06/01/2023 Dyslipidemia (ICD-10 - E78.5) 06/01/2023 BPH loc w urin obs/L UTS (ICD-10 - N40.1) dysuria resolved with extra three days of antibiotic. voiding sx significant decrease since on tamsulosin. cont same. keep appt 02/29/20 06/01/2023 Tobacco use (ICD-10 - Z72.0) 06/01/2023 Epigastric discomfor t (ICD-10 - R10.13) has it for 2 years Intermittent Has appt with [facility] on 07/19/23 Asking me for some treatment I suspect he may have H.Pylori gastritis Will give a trial Plan Of Treatment Medication Medication Name Sig Start Date Stop Date Notes Ampicillin 500 MG 1 capsule 1 hour bef ore or 2 hours after a meal Orally BID for 10 days metroNIDAZOLE 250 MG 1 tablet Orally Thr ee times a day for 10 day(s) 06/01/2023 06/11/2023 Clarithromycin 500 MG 1 tablet Orally ev leon 12 hrs for 10 day(s) 06/01/2023 06/11/2023 Next Appt Details Follow Up: 4 Months, Reason: Progress Notes * Munir POLK LDOB:[birth year] (77 yo M)Acc No.[id number]:06/01/2023 Progress Notes Patient:?Tarah Munir Yony Provider:?Tom Potter MD :1945???Age:77 Y???Sex:Male Jori e:06/01/2023 Address:[facility] [address] [id number] Subjective: * Chief Complaints: * ???FOLLOW UP LABS DONE NOVEMBER 2022EKG DUE * HPI: ???Constitutional:? 06/01/23 Drove with his Joyce yesterday I saw her Has mild dementia. Hasnt gone fishing much this year. Took care of yard and mowed his lawn Cooks as quit cooking. Harini sister calls daily His daughter calls twice a week. Has difficult in talking to Joyce . She is very domineering . Her dementia is making it worse. 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 Only brother Jacques 10 yrs ago at age 73 in [place] in his bed. [employer]ile[employer] found him ?Had DM, HTN, Hyperlipidemia, Hearing loss, tinnitus, back problems, knee pain . ?Comes to day with constant burping for past one year. Had GI appintment but had cancelled it. Wants a referral. No other complaints. Needs labs Saw Giuliana at last visit. [facility] aitch[facility] breaker there Sees Dr Mcarthur for his diabetes. Sees Dr Gomes once a year for his eyes. ?02/18/23 (Paige)Here for follow up ?Taking all meds consistently. Has occ hypoglycemic sx iin am f he does not have a bedtime snack about 8 pm. IMmediately tests and then has a snack. This am gluco 78. Continue to see Dr Timmons for diabetes care. States last HgA1C was 6.7 [facility] 6.9 [facility] F[facility]. Last eye exam 1 year ago and has upcoming appt. ?States he gets chest pressure when he exerts himself. Rests 10 min and resolves. STates that he feels pressure building in stomach, continues to increase , belches and then pain subsides. Has belching other times in day but not associated with chest pressure. ABle to breath but has to take deep breaths. Heart rate does not race or feel irregular. Saw technical lead last fall but was not having the chest pain with exertion at that time. Next follow up not until Oct. ?[facility] from jet engines. [facility] due to agent orange exposure- DM attributed to it. All meds will be covered. * ROS:?hamilton ros:?Review of Systems (ROS)?See HPI for details.?General/Constitutional:?Denies?Change in appetite.?Denies?Chills.?Denies?Fatigue.?Denies?Fever.?Denies?Headache.?Denies?L ightheadedness.?Respiratory:?Denies?Chest pain.?Denies?Cough.?Denies?Hemoptysis.?Denies?Pain with inspiration.?Denies?Shortness of breath.?Denies?Shortness of breath at rest.?Admits?Shortness of breath with exertion.?Denies?Sputum production.?Denies?Wheezing.?Cardiovascular:?Patient complaining of?chest pain with exertion.?Gastrointestinal:?Denies?Abdominal pain.?Denies?Blood in stool.?Denies?Change in bowel habits.?Denies?Constipation.?Denies?Decreased appetite.?Denies?Diarrhea.?Denies?Difficulty swallowing.?Denies?Heartburn.?Denies?Hematemesis.?Denies?Nausea.?Denies?Vomiting .?Peripheral Vascular:?Denies?Cold extremities.?Denies?Decreased sensation in extremities.?Denies?Pain/cramping in legs after exertion.?Denies?Painful extremities.?Denies?Ulceration of feet.?Neurologic:?Admits?Low back pain,?spinal stenosis.? * Medical History:? * Surgical History:?HISTORY OF FIBEROPTIC, INGUINAL HERNIA REPAIR, & ORCHIOPEXY INGUINAL APPROACH RIGHT * Hospitalization/Major Diagno stic Procedure:? * Family History:? THERE IS FAMILY HISTORY OF GOUT, HTN, ANGINA PECTORIS, & DM. * Social History:?Tobacco Use:?Tobacco Use/Smoking?Are you a?current smoker ?How often do you smoke cigarettes??every day ?How many cigarettes a day do you smoke??11-20 ?How soon after you wake up do you smoke your first cigarette??31-60 minutes ?Are you interested in quitting??Not ready to quit ?Additional Findings: Tobacco User?Chain smoker ?Tobacco use other than smoking?Are you an other tobacco user??Yes ???Drugs/Alcohol:?Alcohol Screen (Audit-C)?Did you have a drink containing alcohol in the past year??Yes ?How often did you have a drink containing alcohol in the past year??Monthly or less (1 point) ?How many drinks did you have on a typical day when you were drinking in the past year??1 or 2 drinks (0 point) ?How often did you have 6 or more drinks on one occasion in the past year??Never (0 point) ?Points?1 ?Interpretation?Negative ?Do you drink alcohol?: No. ???Miscellaneous:?Housing: owns a home. ?Living with: spouse. ?Marital status: 1970. 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 * Medications:?TakingBenazepri l HCl 20 MG Tablet TAKE 1 TABLET BY MOUTH EVERY DAY Orally Once a dayTrulicity 0.75 MG/0.5ML Solution Pen-injector as directed Subcutaneous Aspirin 81 MG Tablet Delayed Release 1 tablet Orally Once a dayLevemir 100 UNIT/ML Solution Subcutaneous , Notes: 70 UNITS DAILYVitamin B 12 500 MCG Tablet 2 tablet Orally Once a dayPioglitazone HCl 30 MG Tablet TAKE 1 TABLET BY MOUTH EVERY DAY Tamsulosin HCl 0.4 MG Capsule 1 capsule Orally Once a dayFenofibrate 160 MG Tablet TAKE 1 TABLET BY MOUTH EVERY DAY WITH A MEAL Atorvastatin Calcium 20 MG Tablet TAKE 1 TABLET BY MOUTH EVERY DAY Taking Benazepril HCl 20 MG Tablet TAKE 1 TABLET BY MOUTH EVERY DAY Orally Once a dayTaking Trulicity 0.75 MG/0.5ML Solution Pen- injector as directed Subcutaneous Taking Aspirin 81 MG Tablet Delayed Release 1 tablet Orally Once a dayTaking Levemir 100 UNIT/ML Solution Subcutaneous , Notes: 70 UNITS DAILYTaking Vitamin B 12 500 MCG Tablet 2 tablet Orally Once a dayTaking Pioglitazone HCl 30 MG Tablet TAKE 1 TABLET BY MOUTH EVERY DAY Taking Tamsulosin HCl 0.4 MG Capsule 1 capsule Orally Once a dayTaking Fenofibrate 160 MG Tablet TAKE 1 TABLET BY MOUTH EVERY DAY WITH A MEAL Taking Atorvastatin Calcium 20 MG Tablet TAKE 1 TABLET BY MOUTH EVERY DAY Not-TakingamLODIPine Besylate 5 MG Tablet TAKE 1 TABLET BY MOUTH EVERY DAY Orally Once a dayOzempic (0.25 or 0.5 MG/DOSE) 2 MG/1.5ML Solution Pen-injector as directed Subcutaneous Aspirin 81 81 MG Tablet Chewable 1 tablet Orally Once a dayOmeprazole 40 MG Capsule Delayed Release TAKE 1 CAPSULE BY MOUTH ONCE DAILY 30 MINUTES BEFORE MORNING MEAL. metFORMIN HCl 1000 MG Tablet TAKE 1 TABLET TWICE A DAY WITH FOOD glipiZIDE ER 10 MG Tablet Extended Release 24 Hour 1 tablet Orally Once a dayMedication List reviewed and reconciled with the patientNot- Taking amLODIPine Besylate 5 MG Tablet TAKE 1 TABLET BY MOUTH EVERY DAY Orally Once a dayNot-Taking Ozempic (0.25 or 0.5 MG/DOSE) 2 MG/1.5ML Solution Pen-injector as directed Subcutaneous Not-Taking Aspirin 81 81 MG Tablet Chewable 1 tablet Orally Once a dayNot-Taking Omeprazole 40 MG Capsule Delayed Release TAKE 1 CAPSULE BY MOUTH ONCE DAILY 30 MINUTES BEFORE MORNING MEAL. Not-Taking metFORMIN HCl 1000 MG Tablet TAKE 1 TABLET TWICE A DAY WITH FOOD Not-Taking glipiZIDE ER 10 MG Tablet Extended Release 24 Hour 1 tablet Orally Once a dayMedication List reviewed and reconciled with the patient * Allergies:?N.K.D.A.no[Allerg ies Verified] Objective: * Vitals:?Temp:98.5 F, HR:70 / min, BP:132/68 mm Hg, Wt:268 lbs, BMI:32.62 Index, Ht: 76 in, Oxygen sat %:97 %, Ht-cm: 193.04 cm, Wt-k.56 kg. * ???Past Orders: Lab:COMPREHENSIVE METABOLIC PANEL * Order Date 11/19/2022 07/22/2022 02/03/2022 ALBUMIN 3.8 (Ref Range: 3.2-5.0 G/dL) 3.7 (Ref Range: 3.2-5.0 G/dL) 3.8 (Ref Range: 3.2-5.0 G/dL) ALK PHOS 52 (Ref Range: 42-121 U/L) 50 (Ref Range: 42-121 U/L) 60 (Ref Range: 42-121 U/L) SGPT 30 (Ref Range: 10-60 U/L) 33 (Ref Range: 10-60 U/L) 26 (Ref Range: 10-60 U/L) ANION GAP 8 (Ref Range: 3-11) 6 (Ref Range: 3-11) 8 (Ref Range: 3-11) SGOT 20 (Ref Range: 10-42 U/L) 24 (Ref Range: 10-42 U/L) 18 (Ref Range: 10-42 U/L) BILI,TOTAL 0.6 (Ref Range: 0.0-1.4 mg/dL) 0.4 (Ref Range: 0.0-1.4 mg/dL) 0.5 (Ref Range: 0.0-1.4 mg/dL) BUN 31?H (Ref Range: 5-25 mg/dL) 32?H (Ref Range: 5-25 mg/dL) 25 (Ref Range: 5-25 mg/dL) CALCIUM 8.9 (Ref Range: 8.5-10.5 mg/dL) 9.5 (Ref Range: 8.5-10.5 mg/dL) 9.0 (Ref Range: 8.5-10.5 mg/dL) CHLORIDE 104 (Ref Range: 96-110 mmol/L) 107 (Ref Range: 96-110 mmol/L) 106 (Ref Range: 96-110 mmol/L) CO2 25 (Ref Range: 21-32 mmol/L) 26 (Ref Range: 21-32 mmol/L) 26 (Ref Range: 21-32 mmol/L) CREAT 1.54?H (Ref Range: 0.7-1.3 mg/dL) 1.68?H (Ref Range: 0.7-1.3 mg/dL) 1.68?H (Ref Range: 0.7-1.3 mg/dL) GLOMERULAR FILTRATION RATE 46?L (Ref Range: >60) 42?L (Ref Range: >60) 40 GLUCOSE 172?H (Ref Range: 70-100 mg/dL) 139?H (Ref Range: 70-100 mg/dL) 99 (Ref Range: 70-100 mg/dL) POTASSIUM 4.8 (Ref Range: 3.5-5.5 mmol/L) 4.8 (Ref Range: 3.5-5.5 mmol/L) 4.5 (Ref Range: 3.5-5.5 mmol/L) SODIUM 137 (Ref Range: 135-145 mEq/L) 139 (Ref Range: 135-145 mEq/L) 140 (Ref Range: 135-145 mEq/L) TOTAL PROTEIN 6.9 (Ref Range: 6.0-8.0 G/dL) 6.7 (Ref Range: 6.0-8.0 G/dL) 6.9 (Ref Range: 6.0-8.0 G/dL) ???Lab:VITAMIN B12 (Order Date - 11/19/2022) (Collection Date - 11/19/2022) ?ValueReference Range?VITAMIN [id number] - pg/mL * Lab:LIPID PROFILE * Order Date 11/19/2022 07/22/2022 02/03/2022 CHOLESTEROL 149 (Ref Range: 0-200 mg/dL) 137 (Ref Range: 0-200 mg/dL) 169 (Ref Range: 0-200 mg/dL) HDL CHOLESTEROL 36?L (Ref Range: >40 mg/dL) 37?L (Ref Range: >40 mg/dL) 33?L (Ref Range: >40 mg/dL) LDL CALCULATED 75 (Ref Range: 0-100 mg/dL) 72 (Ref Range: 0-100 mg/dL) 94 (Ref Range: 0-100 mg/dL) TC-HDLC RATIO 4.1 (Ref Range: 0-4.4 mg/dL) 3.7 (Ref Range: 0-4.4 mg/dL) 5.1?H (Ref Range: 0-4.4 mg/dL) TRIGLYCERIDES 194?H (Ref Range: 0-150 mg/dL) 140 (Ref Range: 0-150 mg/dL) 211?H (Ref Range: 0-150 mg/dL) * Examination: ???General Examination: ?GENERAL APPEARANCE:?in no acute distress, well developed, well nourished.?HEAD:?normocephalic, atraumatic.?HEART:?no murmurs, regular rate and rhythm, S1, S2 normal.?LUNGS:?clear to auscultation bilaterally.?ABDOMEN:?normal, bowel sounds present, soft, nontender, nondistended, no hepatosplenomegaly.?EXTREMITIES:? no clubbing, cyanosis, or edema.?PERIPHERAL PULSES:? 2+ dorsalis pedis.?PSYCH:?alert, oriented,cooperative with exam, good eye contact,mood/affect full range,speech clear.? Assessment: * Assessment: 1.?Type 2 diabetes mellitus with diabetic chronic kidney disease - E11.22 (Primary)?2.?Hypercholesterolemia - E78.00, lipids LDL high. Change simva to atorvatsatin?3.?Diabetic neuropathy - E11.40, A1C 8.25. stressed foot care. has numbness but minimal pain. no meds needed. Dr Hillman began him on B12 supplement. Sees aitchbone breaker [place]?4.?Essential hypertension - I10, bp normal cont same meds . PIYUSH diet encouraged. Urged to walk or cycle for exercise.?5.?Dyslipidemia - E78.5?6.?BPH loc w urin obs/LUTS - N40.1, dysuria resolved with extra three days of antibiotic. voiding sx significant decrease since on tamsulosin. cont same. keep appt 02/29/20?7.?Tobacco use - Z72.0?8.?Epigastric discomfort - R10.13, has it for 2 years Intermittent Has appt with [facility] on 07/19/23 Asking me for some treatment I suspect he may have H.Pylori gastritis Will give a trial? Plan: * Treatment: * Procedure Codes:? * Follow Up:?4 Months * Billing Information: * Visit Code:? 27132 Office Visit, Est Pt., Level 4. * Procedure Codes:? * Sign off status: Completed true * Provider:?Tom Potter MD Date:?2022 Generated for Misael chiu/Altaf/eTdevontesmitting on:?11/07/2024 02:20 PM EST History and Physical Notes * HPI (History of Present Illness) Category Sub-Category Detail Notes Category Not es Constitutional 06/01/23 Drove with his Joyce yesterday I saw her Has mild dementia. Hasnt gone fishing much this year. Took care of yard and mowed his lawn Cooks as quit cooking. Harini sister calls daily His daughter calls twice a week. Has difficult in talking to Joyce . She is very domineering . Her dementia is making it worse. 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 [employer].ramandeep Does fishing from his boat. Only brother Jacques 10 yrs ago at age 73 in [place] in his bed. Yamilex found him Had DM, HTN, Hyperlipidemia, Hearing loss, tinnitus, back problems, knee pain . Comes to day with constant burping for past one year. Had GI appintment but had cancelled it. Wants a referral. No other complaints. Needs labs Saw Giuliana at last visit. [facility] a aitchbone breaker there Sees Dr Mcarthur for his diabetes. Sees Dr Gomes once a year for his eyes. 02/18/23 (Paige)Here for follow up Taking all meds consistently. Has occ hypoglycemic sx iin am f he does not have a bedtime snack about 8 pm. IMmediately tests and then has a snack. This am gluco 78. Continue to see Dr Timmons for diabetes care. States last HgA1C was 6.7 [facility] 6.9 [facility] FArx[facility]. Last eye exam 1 year ago and has upcoming appt. States he gets chest pressure when he exerts himself. Rests 10 min and resolves. STates that he feels pressure building in stomach, continues to increase , belches and then pain subsides. Has belching other times in day but not associated with chest pressure. ABle to breath but has to take deep breaths. Heart rate does not race or feel irregular. Saw technical lead last fall but was not having the chest pain with exertion at that time. Next follow up not until Oct. [facility] due [facility] loss from jet engines. [facility] due to agent orange exposure- DM attributed to it. All meds will be covered. 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
--- OUTSIDE RECORDS SUMMARY | 2024-11-07 14:21 | XMS_ITS | Encounter Summary ---
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 Date/Time Encounter Type Encounter Description Reason Provider Source January 18, 2024 08:00 AM OFFICE O/P EST LOW 20 MIN PODIATRY ICD-10-CM L60.0 Ingrowing nail ALICE CUEVAS Lor Encounter Template Text not used by VA Assessments - Encounter Diagnoses This section includes the primary and secondary diagnoses documented for the Encounter. Date/Time Primary/Secondary Diagnosis Diagnosis Name Provider Source January 18, 2024 08:13 AM PRIMARY Ingrowing ALICE Javier January 18, 2024 08:13 AM SECONDARY Type 2 diabetes w diabetic peripheral angiopath w/o gangrene ALICE CUEVAS Plan of Treatment: Future Appointments (+ 6 months) and Future Tests (+/- 45 days) The Plan of Treatment section includes future care activities for the patient [facility] [place] [facility] This section includes future appointments and future orders which are active, pending or scheduled. Future Appointments This section includes appointments that were scheduled to occur 6 months from the date of the Encounter, up to a maximum of 20 appointments. The data comes from all [facility]. Appointment Date/Time Appointment Type Appointme nt Facility Name Feb 06, 2024 02:00 PM [facility]INE [facility] Mar 15, 2024 08:40 AM AMBULATORY - MEDICINE [facility] Mar 21, 2024 08:00 AM AMBULATORY [facility] MEDICINE [facility] May 23, 2024 08:00 AM [facility] Jun 28, 2024 09:30 AM [facility] Jul 05, 2024 11:30 AM [facility] Jul 18, 2024 08:00 AM AMBULATORY - MEDICINE [facility] Social History: Smoking Status (Most current) and [...] place. Date/Time Current Smoking Status Comment Facil [facility] Aug 11, 2023 09:00 AM VA-TOBACCO USER EVERY DAY [place] Tobacco Use History This section includes a history of the smoking, or tobacco-related health factors, that were collected on or before the date of the Encounter. The data comes from the [place] facility where the Encounter took place. Date/Time Smoking Status/Tobacco Use Comment F acility Aug 11, 2023 09:00 AM VA-TOBACCO USE 30 YEARS OR MORE [facility] Aug 11, 2023 09:00 AM VA-TOBACCO USE ADVICE [facility] Aug 11, 2023 09:00 AM VA-TOBACCO USE ADVISOR ADVOCATE 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 [facility] Aug 11, 2023 09:00 AM VA-TOBACCO USE MED NO [facility] Aug 11, 2023 09:00 AM VA-TOBACCO USER EVERY DAY [place] Aug 12, 2022 09:00 AM VA-TOBACCO USE 30 YEARS OR MORE [facility] Aug 12, 2022 09:00 AM VA-TOBACCO USE ADVICE [place] Aug 12, 2022 09:00 AM VA-TOBACCO USE ADVISOR ADVOCATE 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 [place] Aug 12, 2022 09:00 AM VA-TOBACCO USE MED NO [place] Aug 12, 2022 09:00 AM VA-TOBACCO USE WI 30 MIN OF WAKEUP [facility] Aug 12, 2022 09:00 AM VA-TOBACCO USER EVERY DAY [facility] Aug 13, 2021 09:30 AM VA-TOBACCO USE 30 YEARS OR MORE [place] Aug 13, 2021 09:30 AM VA-TOBACCO USE ADVICE [place] Aug 13, 2021 09:30 AM VA-TOBACCO USE ADVISOR ADVOCATE 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 [place] Aug 13, 2021 09:30 AM VA-TOBACCO USE MED NO [place] Aug 13, 2021 09:30 AM VA-TOBACCO USE WI 30 MIN OF [place] [facility] Aug 13, 2021 09:30 AM VA-TOBACCO USER EVERY DAY [facility] Jun 23, 2018 09:30 AM VA-TOBACCO USE 30 YEARS OR MORE [facility] Jun 23, 2018 09:30 AM VA-TOBACCO USE ADVICE [facility] Jun 23, 2018 09:30 AM VA-TOBACCO USE ADVISOR AD[employer]OCATE 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 [place] Jun 23, 2018 09:30 AM VA-TOBACCO USE MED NO [place] Jun 23, 2018 09:30 AM VA-TOBACCO USE WI 30 MIN OF [facility] Jun 23, 2018 09:30 AM VA-TOBACCO USER EVERY DAY [place] Jun 23, 2018 05:05 AM VA-TOBACCO DOESNT USE WI 30 MIN [facility] Jun 23, 2018 05:05 AM VA-TOBACCO USE 30 YEARS OR MORE [facility] Jun 23, 2018 05:05 AM VA-TOBACCO USE ADVICE [facility] Jun 23, 2018 05:05 AM VA-TOBACCO USE ADVISOR AD[employer]OCATE 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 [place] Jun 23, 2018 05:05 AM VA-TOBACCO USE MED NO [place] Jun 23, 2018 05:05 AM VA-TOBACCO USER EVERY DAY [facility] Jun 24, 2017 08:28 AM CURRENT SMOKER cigarettes 3/4 pack daily [facility] Jun 24, 2017 08:28 AM V1-PT NOT INTEREST ED IN QUIT TOBACCO USE [facility] May 21, 2016 09:13 AM V1-PT NOT INTEREST ED IN QUIT TOBACCO USE [facility] Sep 02, 2015 03:57 PM CURRENT SMOKER HALF A PACK A DAY [facility] Sep 02, 2015 03:57 PM V1-PT NOT INTEREST ED IN QUIT TOBACCO USE [facility] Advance Directives: All historical and current Section [...] Sep 26, 2015 ADVANCE DIRECTIVE SRINIVAS ANDERSON [facility] Encounter Notes: All associated encounter notes This section contains the clinical notes associated to the Encounter. Date/Time Encounter Note(s) Provider Source January 18, 2024 07:16 AM PODIATRY NOTE: LOCAL TITLE: PODIATRY NOTE STANDARD TITLE: PODIATRY NOTE DATE OF NOTE: JANUARY 18, 2024@07:16 ENTRY DATE: JANUARY 18, 2024@07:16:42 AUTHOR: ALICE CUEVAS COSIGNER: URGENCY: STATUS: COMPLETED NOTE: HAS RECEIVED BOTH COVID VACCINES + BOOSTER AT [facility] LAST SEEN FOR TREATMENT: 11/05/2023 S: Pt. is a 78 yo alert [...] FOR COMPLETE LIST NEEDED. *NOTE: A1c = 6.7 (LAST TAKEN: 11/2023) FBS= 88AM RISK VALUE =3 HEIGHT: 76.5 in [194.3 [...] present physical-medical status. Protective sensation utilizing a Dyer-Florencio lOg monofilament is 10/10 bilateral. DISCUSSED THE [...] ATTENTION THEY WERE TOO LONG AND PAINFUL (03/21 & 05/23 @8AM) DISCUSSED HIS ;S DETERIORATION WITH ALZHEIMERS *REVIEWED HOME FOOT CARE FEET ARE IN EXCELLENT CONDITION AND I PROVIDED HIM WITH WRITTEN RECOMMENDATIONS FOR FOOT CARE TO BE REVIEWED AT HOME (FOOT CARE TIPS). *DISCUSSED NEW PROTOCOLS AND CALLED [facility] TODAY FOR RESCHEDULING I DISCUSSED THE FINDINGS & PLAN WITH PATIENT (UNCHANGED SINCE PREVIOUS VISIT) & PATIENT AGREES AND UNDERSTANDS PLAN & RECEIVED MIRROR *DO NOT DO HALLUX NAILS HE LIKES THEM A BIT LONGER. Medication Reconciliation: PERFORMED TODAY - SEE BELOW. Outpatient: Has the patient been taking medications as documented in the EMLR? YES: The patient has been taking medications as documented in the EMLR. Essential Medication List for Review used to complete this medication reconciliation. INCLUDED IN THIS LIST: Alphabetical list of active outpatient prescriptions dispensed from this VA (local) and dispensed from another VA or [...] Remote Allergy/ADR Data available for this patient [place] [facility] [place] [facility] No Known Allergies Med Recon NoGlossary (Tool #1) INCLUDED IN THIS LIST: Alphabetical list of active outpatient prescriptions dispensed from this VA (local) and dispensed from another VA or DoD facility (remote) as well as inpatient orders (local pending and active), local clinic medications, locally documented non-VA medications, and local prescriptions that have or been discontinued in the past 90 days. Non-VA Meds Last Documented On: Aug 13, 2021 NOTE The display of VA prescriptions dispensed from another VA or DoD facility (remote) is limited to active outpatient prescription entries matched to National Drug File at the originating site and may not include some items such as investigational drugs, compounds, etc. NOT INCLUDED IN THIS LIST: Medications self-entered by the patient into personal health records (i.e. [employer]) are NOT included in this list. Non-VA medications documented outside this VA, remote inpatient orders (regardless of status) and remote clinic medications are NOT included in this list. The patient and provider must always discuss medications the patient is taking, regardless of where the medication was dispensed or obtained. Non-VA ASPIRIN 81MG EC TAB TAKE ONE TABLET BY MOUTH DAILY Medication prescribed by Non-VA provider. OUTPT BENAZEPRIL HCL 20MG TAB (Status = Active) TAKE ONE TABLET BY MOUTH ONCE DAILY FOR HIGH BLOOD PRESSURE Rx# [id number] Last Released: 11/30/23 Qty/Days Supply: Rx Expiration Date: 03/23/24 Refills Remainin Indication: FOR HIGH BLOOD PRESSURE Non-VA CYANOCOBALAMIN TAB TAKE BY MOUTH ONCE DAILY Medication prescribed by Non-VA provider. OUTPT EMPAGLIFLOZIN 25MG TAB (Status = Discontinued) TAKE ONE TABLET BY MOUTH ONCE DAILY Rx# [id number] Last Released: 08/24/23 Qty/Days Supply: 90 Rx Expiration Date: 12/02/23 Refills Remainin Indication: FOR TYPE 2 DIABETES MELLITUS OUTPT EMPAGLIFLOZIN 25MG TAB (Status = Active) TAKE ONE TABLET BY MOUTH ONCE DAILY FOR TYPE 2 DIABETES MELLITUS Rx# [id number] Last Released: 12/28/23 Qty/Days Supply: Rx Expiration Date: 12/26/24 Refills Remainin Indication: FOR TYPE 2 DIABETES MELLITUS Non-VA FENOFIBRATE 160MG TAB TAKE ONE TABLET BY MOUTH DAILY Medication prescribed by Non-VA provider. OUTPT INSULIN,GLARGINE-YFGN 100UNIT/ML INJ (Status = Active) INJECT 75 UNITS SUBCUTANEOUSLY ONCE DAILY FOR TYPE 2 DIABETES MELLITUS THIS REPLACES INSULIN DETEMIR Rx# [id number] Last Released: 12/21/23 Qty/Days Supply: Rx Expiration Date: 09/02/24 Refills Remainin Indication: FOR TYPE 2 DIABETES MELLITUS Non-VA OMEPRAZOLE 20MG EC CAP TAKE 2 CAPSULES BY MOUTH EVERY MORNING 30 MINUTES BEFORE BREAKFAST Medication prescribed by Non-VA provider. Non-VA OTHER CAP/TAB TAKE ONE TOUCH ULTRA BLUE IN VITRO STRIP BY MOUTH FOUR TIMES A DAY Medication prescribed by Non-VA provider. Non-VA PIOGLITAZONE HCL 30MG TAB TAKE ONE TABLET BY MOUTH DAILY Medication prescribed by Non-VA provider. OUTPT SEMAGLUTIDE 0.25MG/0.375ML INJ PEN 3ML (Status = Active) INJECT 0.5MG SUBCUTANEOUSLY ONCE A WEEK FOR TYPE 2 DIABETES MELLITUS Rx# [id number] Last Released: 12/21/23 Qty/Days Supply: 10/02 Rx Expiration Date: 08/02/24 Refills Remainin Indication: FOR TYPE 2 DIABETES MELLITUS Non-VA TAMSULOSIN HCL 0.4MG CAP TAKE 1 CAPSULE BY MOUTH ONCE DAILY Non-VA medication not recommended by VA provider. Medication prescribed by Non-VA provider. 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
--- OUTSIDE RECORDS SUMMARY | 2024-11-07 14:21 | XMS_ITS ---
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 Date/Time Encounter Type Encounter Description Reason Pro vider Source Aug 25, 2024 03:08 PM Outpatient Encounter ADMIN PAT ACTIVTIES (MASNONCT) IHE Encounter Template Text not used by MD Plan of Treatment: Future Appointments (+ 6 [...] 20 appointments. The data comes from all [place] treatment facilities. Appointment Date/Time Appointment Type Appointme nt Facility Name Sep 19, 2024 12:00 PM AMBULATORY - MEDICINE [facility] [place] [facility] Oct 17, 2024 08:00 AM AM[facility]ICINE [facility] [place] Oct 26, 2024 08:00 AM [facility]ORY [facility] Oct 31, 2024 11:30 AM AMBULATORY - MEDICINE [facility] [place] [facility] Nov 09, 2024 10:10 AM AMBULATORY - MEDICINE [facility] [place] [facility] Nov 21, 2024 11:00 AM AMBULATORY - MEDICINE [facility] Dec 12, 2024 11:00 AM AMBULATORY - MEDICINE [place] [facility] [place] [facility] January 22, 2025 08:00 AM AM[facility]ATORY [facility] MEDICINE [facility] Feb 05, 2025 10:00 AM [facility] Lab Results: +/- 30 days of the encounter This section includes the Chemistry and Hematology Lab Results on record with MD for the patient. Radiology Reports and Pathology Reports are provided separately, in subsequent sections. Lab Results This section contains the Chemistry/Hematology Results that were resulted 30 days before or 30 daysafter the date of the Encounter. Date/Time Source Result Type Result - Unit Interpretation Reference Range Comment Sep 19, 2024 12:43 PM [facility] HEMOGLOBIN A1C PANEL Specimen Type: BLOOD Comment: [...] Sep 19, 2024 12:20 PM Reporting Lab: [address] [id number] Performing Lab: [address] [address] HEMOGLOBIN A1C 6.7 H 4.0-5.6 Sep 19, 2024 12:43 PM [facility] BASIC METABOLIC PANEL (non-fasting) Specimen Type: SERUM Comment: Hemolysis present may falsly elevate Potassium Total and Direct Bili, Iron, AST, %Fe. Ordering Provider: HALEY GO Report Released Date/Time: Sep 19, 2024 12:20 PM Reporting Lab: [facility] [address] [facility] [address] Performing Lab: [facility] [address] [facility] [address] UREA NITROGEN 22 mg/dL 7-25 GLUCOSE 100 [...] and tobacco- related health factors from the [place] facility where the Encounter took place. Current Smoking Status This section includes the most current smoking, or tobacco-related health factor, from the [place] facility where the Encounter took place. Date/Time Current Smoking Status Comment Alyce ity Jul 18, 2020 11:41 AM VA-TOBACCO USER EVERY DAY [facility] Tobacco Use History This section includes a history of the smoking, or tobacco-related health factors, that were collected on or before the date of the Encounter. The data comes from the [place] facility where the Encounter took place. Date/Time Smoking Status/Tobacco Use Comment F acility Jul 18, 2020 11:41 AM VA-TOBACCO USE [address] 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 Jul 18, 2020 11:41 AM VA-TOBACCO USE MED NO [facility] Jul 18, 2020 11:41 AM VA-TOBACCO USER EVERY DAY [facility] Advance Directives: All historical and current Section Date Range: From patient's date of to the date document was created. This section includes ALL of a patient's completed or amended MD Advance and Rescinded Directives. The entries below indicate that a directive exists for the patient, but an actual copy is not included with this document. The data comes from all [place] facilities. Date Advance Directives Provider Source Sep 26, 2015 ADVANCE DIRECTIVE SRINIVAS ANDERSON [place] Encounter Notes: All associated encounter notes This section contains the clinical notes associated to the Encounter. Date/Time Encounter Note(s) Provider Source Aug 25, 2024 03:08 PM PHARMACY NOTE: LOCAL TITLE: PHARMACY CUSTOMER CARE MEDICATION RENEWAL STANDARD TITLE: PHARMACY NOTE DATE OF NOTE: AUG 25, 2024@15:08 ENTRY DATE: AUG 25, 2024@15:08:37 AUTHOR: OWEN GONZALEZ COSIGNER: URGENCY: STATUS: COMPLETED Date: Aug Division: [facility] referred by Pharmacy Call Center for medication renewal: Non-controlled/maintenance medication Medications requested: [id number] SEMAGLUTIDE 0.25MG/0.375ML INJ PEN 3ML Defer to primary care provider To be mailed . Please review and renew if appropriate. *This note was generated by [facility] Pharmacy Customer Care. If you have any questions or need assistance, do not contact this author. Please refer all questions to your local, on-site pharmacy departments. /marisela/ OWEN GONZALEZ CPhT Complaint Evaluation Supervisor, [place]/Pharmacy Customer Care Signed: 08/25/2024 15:09 Receipt Acknowledged By: 08/26/2024 09:24 /es/ WILIAM BERMAN MD PHYSICIAN 08/30/2024 15:01 /es/ CINDY BERMAN RN REGISTERED NURSE OWEN GONZALEZ MD [facility]
--- OUTSIDE RECORDS SUMMARY | 2024-11-07 14:21 | XMS_ITS | Encounter Summary ---
Author Name [facility] [place] Organization [place] Address [address] [place] [id number] Care Team Providers Care [employer] Name Role Phone WILIAM BERMAN Primary Care [...] Flood's Name Patient's Relationship to Policy Flood [facility] ([facility]) MEDICARE ADVANTAGE [facility] (R) Sep 05, 2012 HAM [id number] PATRICK POLK PATIENT [facility] (WNR) MEDICARE ADVANTAGE [facility] (WNR) Sep 05, 2012 [id number] PATRICK POLK PATIENT Selected Encounter This section includes the information on record at [place] for the Encounter. Date/Time Encounter Type Encounter Description Reason Provider Source Mar 21, 2024 08:00 AM OFFICE O/P EST LOW 20 MIN PODIATRY ICD-10-CM L60.0 Ingrowing nail ALICE CUEVAS Lor Encounter Template Text not used by VA Assessments - Encounter Diagnoses This section includes the primary and secondary diagnoses documented for the Encounter. Date/Time Primary/Secondary Diagnosis Diagnosis Name Provider Source Mar 21, 2024 08:12 AM PRIMARY Ingrowing ALICE Javier Mar 21, 2024 08:12 AM SECONDARY Type 2 diabetes w diabetic peripheral angiopath w/o gangrene ALICE CUEVAS Plan of Treatment: Future Appointments (+ 6 months) and Future Tests (+/- 45 days) The Plan of Treatment section includes future care activities for the [facility] [place] [facility] This section includes future appointments and future orders which are active, pending or scheduled. Future Appointments This section includes appointments that were scheduled to occur 6 months from the date of the Encounter, up to a maximum of 20 appointments. The data comes from all [place] treatment facilities. Appointment Date/Time Appointment Type Appointme nt Facility Name May 23, 2024 08:00 AM AMBULATORY - MEDICINE [facility] Jun 28, 2024 09:30 AM [facility] [place] [facility] Jul 05, 2024 11:30 AM [facility] - MEDICINE [facility] Jul 18, 2024 08:00 AM AMBUL[facility]ORY - MEDICINE [facility] Aug 22, 2024 10:00 AM AMBULATORY - MEDICINE [facility] [place] [facility] Sep 19, 2024 12:00 PM [facility] Social History: Smoking Status (Most current) and [...] place. Date/Time Current Smoking Status Comment Facil [facility] Aug 11, 2023 09:00 AM VA-TOBACCO USER EVERY DAY [facility] Tobacco Use History This section includes a history of the smoking, or tobacco-related health factors, that were collected on or before the date of the Encounter. The data comes from the [place] facility where the Encounter took place. Date/Time Smoking Status/Tobacco Use Comment F acility Aug 11, 2023 09:00 AM VA-TOBACCO USE 30 YEARS OR MORE [facility] Aug 11, 2023 09:00 AM VA-TOBACCO USE ADVICE [facility] Aug 11, 2023 09:00 AM VA-TOBACCO USE SCORE CALLER NO [facility] Aug 11, 2023 09:00 AM VA-TOBACCO USE MED NO [facility] Aug 11, 2023 09:00 AM VA-TOBACCO USER EVERY DAY [facility] Aug 12, 2022 09:00 AM VA-TOBACCO USE 30 YEARS OR MORE [facility] Aug 12, 2022 09:00 AM VA-TOBACCO USE ADVICE [facility] Aug 12, 2022 09:00 AM VA-TOBACCO USE SCORE CALLER NO [facility] Aug 12, 2022 09:00 AM VA-TOBACCO USE MED NO [facility] Aug 12, 2022 09:00 AM VA-TOBACCO USE WI 30 MIN OF WAKEUP [facility] Aug 12, 2022 09:00 AM VA-TOBACCO USER EVERY DAY [facility] Aug 13, 2021 09:30 AM VA-TOBACCO USE 30 YEARS OR MORE [facility] Aug 13, 2021 09:30 AM VA-TOBACCO USE ADVICE [facility] Aug 13, 2021 09:30 AM VA-TOBACCO USE SCORE CALLER NO [facility] Aug 13, 2021 09:30 AM VA-TOBACCO USE MED NO [facility] Aug 13, 2021 09:30 AM VA-TOBACCO USE WI 30 MIN OF [place] [facility] Aug 13, 2021 09:30 AM VA-TOBACCO USER EVERY DAY [facility] Jun 23, 2018 09:30 AM VA-TOBACCO USE 30 YEARS OR MORE [facility] Jun 23, 2018 09:30 AM VA-TOBACCO USE ADVICE [facility] Jun 23, 2018 09:30 AM VA-TOBACCO USE SCORE CALLER NO [facility] Jun 23, 2018 09:30 AM VA-TOBACCO USE MED NO [facility] Jun 23, 2018 09:30 AM VA-TOBACCO USE WI 30 MIN OF [place] [facility] Jun 23, 2018 09:30 AM VA-TOBACCO USER EVERY DAY [facility] Jun 23, 2018 05:05 AM VA-TOBACCO DOESNT USE WI 30 MIN [facility] Jun 23, 2018 05:05 AM VA-TOBACCO USE 30 YEARS OR MORE [facility] Jun 23, 2018 05:05 AM VA-TOBACCO USE ADVICE [facility] Jun 23, 2018 05:05 AM VA-TOBACCO USE SCORE CALLER NO [facility] Jun 23, 2018 05:05 AM VA-TOBACCO USE MED NO [facility] Jun 23, 2018 05:05 AM VA-TOBACCO USER EVERY DAY [facility] Jun 24, 2017 08:28 AM CURRENT SMOKER cigarettes 3/4 pack daily [facility] Jun 24, 2017 08:28 AM V1-PT NOT INTEREST ED IN QUIT TOBACCO USE [facility] May 21, 2016 09:13 AM V1-PT NOT INTEREST ED IN QUIT TOBACCO USE [facility] Sep 02, 2015 03:57 PM CURRENT SMOKER HALF A PACK A DAY [facility] Sep 02, 2015 03:57 PM V1-PT NOT INTEREST ED IN QUIT TOBACCO USE [facility] Advance Directives: All historical and current Section [...] Sep 26, 2015 ADVANCE DIRECTIVE SRINIVAS ANDERSON [facility] Encounter Notes: All associated encounter notes This section contains the clinical notes associated to the Encounter. Date/Time Encounter Note(s) Provider Source Mar 21, 2024 07:22 AM PODIATRY NOTE: LOCAL TITLE: PODIATRY NOTE STANDARD TITLE: PODIATRY NOTE DATE OF NOTE: MAR 21, 2024@07:22 ENTRY DATE: MAR 21, 2024@07:22:14 AUTHOR: ALICE CUEVAS COSIGNER: URGENCY: STATUS: COMPLETED NOTE: HAS RECEIVED BOTH COVID VACCINES + BOOSTER AT [facility] LAST SEEN FOR TREATMENT: 01/18/2024 S: Pt. is a 78 yo alert [...] present physical-medical status. Protective sensation utilizing a [place] lOg monofilament is 10/10 bilateral. DISCUSSED THE [...] THEY WERE TOO LONG AND PAINFUL ( 05/23 & 07/18 @8AM) DISCUSSED HIS ;S DETERIORATION WITH ALZHEIMERS [...] AGREES AND UNDERSTANDS PLAN & RECEIVED MIRROR DISCUSSED SPAM RISK PHONE CALLS AND HE INQUIRED ABOUT SETTING UP HIS CELL PHONE TO ENABLE MY HEALTHY VET ACCESS & WAS DIRECTED TO TAYLER WADE & HE IS GRATEFUL FOR THE ASSISTANCE. *DO NOT DO HALLUX NAILS HE LIKES [...] list may not be complete. Please check Sponge. Allergies/ADRs (Tool #5) FACILITY ALLERGY/ADR -------- No Remote Allergy/ADR Data available for this patient [place] [facility] [place] [facility] No Known Allergies Med Recon [facility] (Tool #1) INCLUDED IN THIS LIST: Alphabetical [...] display of VA prescriptions dispensed from another [place] or [facility] facility (remote) is limited to active outpatient prescription entries matched to National Drug File at the originating site and may not include some items such as investigational drugs, compounds, etc. NOT INCLUDED IN THIS LIST: Medications self-entered by the patient into personal health records (i.e. [facility]) are NOT included in this list. Non-VA medications documented outside this [place], remote inpatient orders (regardless of status) and remote clinic medications are NOT included in this list. The patient and provider must always discuss medications the patient is taking, regardless of where the medication was dispensed or obtained. Non-VA ASPIRIN 81MG EC TAB TAKE ONE TABLET BY MOUTH DAILY Medication prescribed by Non-VA provider. OUTPT BENAZEPRIL HCL 20MG TAB (Status = Discontinued) TAKE ONE TABLET BY MOUTH ONCE DAILY FOR HIGH BLOOD PRESSURE Rx# [id number] Last Released: 11/30/23 Qty/Days Supply: Rx Expiration Date: 03/23/24 Refills Remainin Indication: FOR HIGH BLOOD PRESSURE OUTPT BENAZEPRIL HCL 20MG TAB (Status = Active) TAKE ONE TABLET BY MOUTH ONCE DAILY FOR HIGH BLOOD PRESSURE Rx# [id number] Last Released: 02/08/24 Qty/Days Supply: 90 Rx Expiration Date: 02/06/25 Refills Remainin Indication: FOR HIGH BLOOD PRESSURE OUTPT CHOLECALCIF 50MCG (D3-2,000UNIT) TAB (Status = Active) TAKE ONE TABLET BY MOUTH ONCE DAILY FOR VITAMIN SUPPLEMENTATION Rx# [id number] Last Released: 02/08/24 Qty/Days Supply: 100/ Rx Expiration Date: 02/06/25 Refills Remainin Indication: FOR VITAMIN D DEFICIENCY OUTPT EMPAGLIFLOZIN 25MG TAB (Status = Active) TAKE ONE TABLET BY MOUTH ONCE DAILY FOR TYPE 2 DIABETES MELLITUS Rx# [id number] Last Released: 12/28/23 Qty/Days Supply: Rx Expiration Date: 12/26/24 Refills Remainin Indication: FOR TYPE 2 DIABETES MELLITUS OUTPT FENOFIBRATE 145MG TAB (Status = Active) TAKE ONE TABLET BY MOUTH ONCE DAILY FOR HIGH CHOLESTEROL Rx# [id number] Last Released: 02/08/24 Qty/Days Supply: Rx Expiration Date: 02/06/25 Refills Remainin Indication: FOR HIGH CHOLESTEROL OUTPT FINASTERIDE 5MG TAB (Status = Discontinued) TAKE ONE TABLET BY MOUTH ONCE DAILY FOR ENLARGED PROSTATE Rx# [id number] Last Released: 02/08/24 Qty/Days Supply: Rx Expiration Date: 02/06/25 Refills Remainin Indication: FOR ENLARGED PROSTATE OUTPT FINASTERIDE 5MG TAB (Status = Active/Suspended) TAKE ONE TABLET BY MOUTH ONCE DAILY Rx# [id number] Last Released: Qt Supply: Rx Expiration Date: 03/16/25 Refills Remainin OUTPT INSULIN,GLARGINE-YFGN 100UNIT/ML INJ (Status = Active) INJECT 75 UNITS SUBCUTANEOUSLY ONCE DAILY FOR TYPE 2 DIABETES MELLITUS THIS REPLACES INSULIN DETEMIR Rx# [id number] Last Released: 12/21/23 Qty/Days Supply: Rx Expiration [...] WEEK FOR TYPE 2 DIABETES MELLITUS Rx# [id number] Last Released: 03/14/24 Qty/Days Supply: 10/02 Rx Expiration Date: 08/02/24 Refills Remainin Indication: FOR TYPE 2 DIABETES MELLITUS OUTPT TAMSULOSIN HCL 0.4MG CAP (Status = Active) TAKE ONE CAPSULE BY MOUTH ONCE DAILY FOR ENLARGED PROSTATE Rx# [id number] Last Released: 02/08/24 Qty/Days Supply: Rx Expiration Date: 02/06/25 Refills Remainin Indication: FOR ENLARGED PROSTATE SUPPLIES OUTPT INSULIN SYRINGE 1ML 30G 12MM (Status = Active) USE 1 SYRINGE SUBCUTANEOUSLY DAILY FOR INSULIN INJECTIONS Rx# [id number] Last Released: 01/25/24 Qty/Days Supply: 100/90 Rx Expiration Date: 10/27/24 Refills Remainin /marisela/ ALICE CUEVAS DPM AUTOMATIC STACKER Signed: 03/21/2024 08:12 ALICE CUEVAS [facility]
--- OUTSIDE RECORDS SUMMARY | 2024-11-07 14:22 | XMS_ITS | Encounter Summary ---
Author Name [facility] [place] Organization [place] Address [address] [place] [address] Care Team Providers Care Manager Local Name Role Phone WILIAM BERMAN Primary Care [...] Flood's Name Patient's Relationship to Policy Flood [facility] (WNR) MEDICARE ADVANTAGE [facility] (R) Sep 05, 2012 [id number] PATRICK POLK PATIENT [facility] (WNR) MEDICARE ADVANTAGE [facility] (WNR) Sep 05, 2012 [id number] PATRICK POLK PATIENT Selected Encounter This section includes the information on record at [place] for the Encounter. Date/Time Encounter Type Encounter Description Reason Pro vider Source Oct 10, 2024 02:52 PM Outpatient Encounter PRIMARY CARE/MEDICINE IHE Encounter Template Text not used by [place] Plan of Treatment: Future Appointments (+ 6 [...] 31, 2024 11:30 AM AMBULATORY - MEDICINE [place] [facility] [place] [facility] Nov 09, 2024 10:10 AM AMBULATORY - MEDICINE [place] [facility] [place] [facility] Nov 21, 2024 11:00 AM AMBULATORY - MEDICINE [place] [place] [facility] Dec 12, 2024 11:00 AM AMBULATORY - MEDICINE [place] [facility] [place] [facility] January 22, 2025 08:00 AM AMBULATORY - [...] of theEncounter. The data comes from all [facility]. Test Date/Time Test Type Test Details Facility Name Oct 10, 2024 04:30 PM Consult Order COMMUNITY CARE-UROLOGY Cons Gear Changer's Choice [facility] Lab Results: +/- 30 days of the encounter This section includes the Chemistry and Hematology Lab Results on record with VA for the patient. Radiology Reports and Pathology Reports are provided separately, in subsequent sections. Lab Results This section contains the Chemistry/Hematology Results that were resulted 30 days before or 30 daysafter the date of the Encounter. Date/Time Source Result Type Result - Unit Interpretation Reference Range Comment Sep 19, 2024 12:43 PM [place] [facility] HEMOGLOBIN A1C PANEL Specimen Type: BLOOD Comment: [...] Sep 19, 2024 12:20 PM Reporting Lab: [facility] [address] [facility] [address] Performing Lab: [facility] [address] [facility] [address] HEMOGLOBIN A1C 6.7 H 4.0-5.6 Sep 19, 2024 12:43 PM [facility] BASIC METABOLIC PANEL (non-fasting) Specimen Type: SERUM Comment: Hemolysis present may falsly elevate Potassium Total and Direct Bili, Iron, AST, %Fe. Ordering Provider: HALEY GO Report Released Date/Time: Sep 19, 2024 12:20 PM Reporting Lab: [facility] [address] [facility] [address] Performing Lab: [address] [address] UREA NITROGEN 22 mg/dL 7-25 GLUCOSE 100 [...] 2020 11:41 AM VA-TOBACCO USER EVERY DAY [facility] Tobacco Use History This section includes a history of the smoking, or tobacco-related health factors, that were collected on or before the date of the Encounter. The data comes from the [place] facility where the Encounter took place. Date/Time Smoking Status/Tobacco Use Comment F acility Jul 18, 2020 11:41 AM VA-TOBACCO USE 30 YEARS OR MORE [facility] Jul 18, 2020 11:41 AM VA-TOBACCO USE ADVICE [facility] [place] [facility] Jul 18, 2020 11:41 AM VA-TOBACCO USE A AUXILIARY NO [facility] [place] [facility] Jul 18, 2020 11:41 AM VA-TOBACCO USE MED NO [facility] [place] [facility] Jul 18, 2020 11:41 AM VA-TOBACCO USER EVERY DAY [place] [facility] Advance Directives: All historical and current Section Date Range: From patient's date of to the date document was created. This section includes ALL of a patient's completed or amended [place] Advance and Rescinded Directives. The entries below indicate that a directive exists for the patient, but an actual copy is not included with this document. The data comes from all [place] facilities. Date Advance Directives Provider Source Sep 26, 2015 ADVANCE DIRECTIVE TEGAN ANDERSONJEFFERY [facility] Encounter Notes: All associated encounter notes This section contains the clinical notes associated to the Encounter. Date/Time Encounter Note(s) Provider Source Oct 10, 2024 02:52 PM PRIMARY CARE NOTE: LOCAL TITLE: WALK-IN NOTE PRIMARY CARE (T) STANDARD TITLE: PRIMARY CARE NOTE DATE OF NOTE: OCT 10, 2024@14:52 ENTRY DATE: OCT 10, 2024@14:54:17 AUTHOR: MORIAH BOO COSIGNER: URGENCY: STATUS: COMPLETED WALK-IN NOTE PRIMARY CARE (T) Has ADDENDA <====Click to Start Advanced Medical Support presents to the Primary Care clinic with the following request: [ ]Medication Renewal/Refill [ ]Consultation with Team RN [ ]Symptoms [ X ]Other The [facility] states they are: [ ]Waiting [ X ]Not Waiting No Walk in visit scheduled with PACT Nurse [ X ] At this encounter the 's demographics were verified. [ X ] At this encounter the [facility]'s Insurance information was verified. [ X ] At this encounter the below scheduled visits for the were discussed and appointment reminder card was offered. Future appointments: 10/17/2024 08:00 SPR PODIATRY 1 10/31/2024 11:30 SPR PHARM PACT 2 01/22/2025 08:00 SPR PODIATRY 1 02/05/2025 10:00 CWM/SO/PACT 5 requesting renewal for [facility] Consult()([phone] Consult for [facility](DR.MARC CARUSO)([phone] /marisela/ MORIAH BOO ADVANCED BUSINESS INFORMATION MANAGER Signed: 10/10/2024 15:04 Receipt Acknowledged By: 10/11/2024 11:17 /marisela/ JUANCARLOS SANTILLAN LPN LPN 10/11/2024 15:59 /es/ CINDY BERMANRN REGISTERED NURSE 10/11/2024 ADDENDUM STATUS: COMPLETED Consults were placed yesterday. [facility] contacted request for [facility](DR.MARC CARUSO)([phone] - provider is not in network. contacted and made aware, he has no further questions at this time. /marisela/ JUANCARLOS SANTILLAN LPN LPN Signed: 10/11/2024 11:17 MORIAH BOO
--- OUTSIDE RECORDS SUMMARY | 2024-11-07 14:22 | XMS_ITS | Continuity of Care Document ---
Author Organization [facility] [address] [place] [address] Phone [phone] Problems Active Problems Provider Date Type 2 diabetes mellitus Marcelino Cesar M.D. Onset: 04/01/2022 Essential hypertension Marcelino Cesar M.D. O nset: 04/01/2022 Hyperlipidemia Marcelino Cesar M.D. Onset: 0 04/01/2022 Diabetic peripheral neuropathy Marcelino Cesar M.D. Onset: 10/18/2022 Social History Type Date Description Comments Sex Unknown Marital Status Has been 1 time Lives With Spouse Tobacco Use Start: Unknown Patient was a ci lubaette smoker, current status is unknown ETOH Use Rarely consumes alcohol Allergies and adverse reactions Description No Known Drug Allergies Medications Active Medications SIG Qnty Indications Order ing Provider Date Ozempic (0.25 Or 0.5 MG/Dose)2mg/3ML Solution Pen-Inject inject 0.5 mg subcutaneously every week 9ml E11.9 Marcelino Cesar M.D. 07/20/2023 [facility] Vitamin [id number] Tablets 1 by mouth every day Marcelino Cesar M.D. 02/21/2023 Aspirin Adult Low Bmgt93sf Tablets DR 1 by mouth every day Marcelino Cesar M.D. 04/01/2022 [id number] Tablets take 1 tablet by mouth every day as directed 90tabs Marcelino Cesar M.D. 04/01/2022 Idrhaglnklq363al Tablets 1 tab by mouth every day 90tabs Unknown Onetouch UltraStrips Use Once Daily Dx:E11.9 100units E11.9 Marcelino Cesar M.D. Benazepril TPB54yx Tablets Take 1 Tablet By Mouth Every Day Unknown Atorvastatin Egntxiq42ce Tablets Take 1 Tablet By Mouth Every Day 90tabs Marcelino Cesar M.D. Fpftuodotf43rk Capsules DR Take 1 Capsule By Mouth Twice Daily Unknown Tamsulosin HCL0.4mg Capsules Take 1 Capsule By Mouth Everyday AT Bedtime Zaid Hollingsworth MD Pioglitazone NQQ83nx Tablets Take 1 Tablet By Mouth Every Day 90tabs Marcelino Cesar M.D. Zwobdp942Lwcz/ML Solution inject 20 units subcutaneously daily Marcelino Cesar M.D. Vital Signs Date Vital Result Comment 10/11/2024 8:27am BP Systolic 110 mmHg BP Diastolic 80 mmHg Heart Rate 72 /min Height 76 inches 6'4 Weight 258.00 lb BMI (Body Mass Index) 31.4 kg/m2 Results Test Acquired Date Facility Test Result H/L Range N ote Laboratory test finding 10/11/2024 Inhouse Hemoglobin A1c 6.9% Glucose Fingerstick 182 Laboratory test finding 06/28/2024 Inhouse Hemoglobin A1c 6.9% Glucose Fingerstick 126 Laboratory test finding 03/05/2024 Inhouse Hemoglobin A1c 6.2% Glucose Fingerstick 107 Laboratory test finding 09/01/2023 Inhouse Hemoglobin A1c 7.5% Glucose Fingerstick 199 Laboratory test finding 02/21/2023 Inhouse Hemoglobin A1c 7.3% Glucose Fingerstick 138 Laboratory test finding 10/18/2022 Inhouse Hemoglobin A1c 6.9% Glucose Fingerstick 217 Laboratory test finding 07/05/2022 Inhouse Hemoglobin A1c 7.9% Glucose Fingerstick 131 Laboratory test finding 04/01/2022 Inhouse Hemoglobin A1c 8.4% Glucose Fingerstick 158 Procedures Date Code Description Status 10/11/2024 05992 Glucose Monitoring Interpeta tion And Report Completed 06/28/2024 86418 Glucose Monitoring Interpeta tion And Report Completed Medical Devices Description No Information Available Encounters Type Date Location Provider Dx Diagnosis Office Visit 10/11/2024 8:45a Main Office Marcelino Cesar M.D. E11.8 Type 2 diabetes mellitus with unspecified complications E11.40 Type 2 diabetes daniel itus with diabetic neuropathy, unsp N18.9 Chronic kidney disea se, unspecified Assessments Date Code Description Provider 10/11/2024 E11.8 Complication due to diabetes mellitus Marcelino Cesar M.D. 10/11/2024 E11.40 Diabetic peripheral neuropat hy Marcelino Cesar M.D. 10/11/2024 N18.9 Chronic kidney disease Marcelino Cesar M.D. Plan of Treatment Future Appointment(s):* 03/04/2025 9:15 am - Marcelino Cesar M.D. at Main Office 03/05/2024 - Marcelino Cesar M.D.* E11.8 Complication due to diabetes mellitus * E11.40 Diabetic peripheral neuropathy * N18.9 Chronic kidney disease Functional Status Description No Information Available Mental Status Description No Information Available Referrals Refer to Dr Reason for Referral Status Appt Jori e Marcelino Cesar M.D. Closed [address] [place] [address] Drive [address] [place] [address] [phone] Marcelino Cesar M.D. TYPE 2 DIABETIC Created [address] [place] [address] Drive [address] [place] [address] [phone] Marcelino Cesar M.D. Created [address] [place] [address] Drive [address] [place] [address] [phone]
--- OUTSIDE RECORDS SUMMARY | 2024-11-07 14:22 | XMS_ITS ---
Author Organization [facility] Address [address] [place] [address] Care Team Providers Care Senior Oracle Applications Developer Name Role Phone TOM POTTER Primary Care Provider Tom Potter Unavailable [phone] REASON FOR VISIT F/U Encounters Encounter Location Date Provider Diagnosis [facility] [address] [place] [address] 05/25/2023 TOM POTTER Plan Of Treatment No Information Progress Notes * Munir POLK LDOB:[birth year] (78 yo M)Acc No.[id number]:05/25/2023 Progress Notes Patient:?Munir POLK Provider:?Tom Potter MD :[id number]???Age:77 Y???Sex:Male Jori e:05/25/2023 Address:[address] [place], [place] [id number] Subjective: * Chief Complaints: * ???1. F/U. * Medical History:? Objective: * Vitals:? Assessment: Plan: * Treatment: * Billing Information: * Visit Code:? * Procedure Codes:? * Electronic signature of GRICEL POTTER MD on 11/07/2024 at 02:21 PM EST Sign off status: Pending * Provider:?Tom Potter MD Date:?2022 Generated for Printi ng/Fareedg/eTransmitting on:?11/07/2024 02:21 PM EST
--- OUTSIDE RECORDS SUMMARY | 2024-11-07 14:22 | XMS_ITS | Patient Health Record ---
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 for 90 Not-Taking amLODIPine Besylate 5 MG TAKE 1 TABLET BY MOUTH EVERY DAY Orally Once a day for 90 days Not-Taking Aspirin 81 81 MG 1 tablet Orally Once a day Not-Taking Ampicillin 500 MG 1 capsule 1 hour before or 2 hours after a meal Orally BID for 10 days Active Ozempic (0.25 or 0.5 MG/DOSE) 2 MG/1.5ML as directed Subcutaneous Not-Taking Atorvastatin Calcium 20 MG TAKE 1 TABLET BY MOUTH EVERY DAY for 90 Active Vitamin B 12 500 MCG 2 tablet Orally Onc e a day Active Levemir 100 UNIT/ML Subcutaneous 70 UNITS DAILY Active Aspirin 81 MG 1 tablet Orally Once a day Active glipiZIDE ER 10 MG 1 tablet Orally Once a day for 30 days Not-Taking Trulicity 0.75 MG/0.5ML as directed Subcutaneous Active metFORMIN HCl 1000 MG TAKE 1 TABLET TWIC E A DAY WITH FOOD for 90 Not-Taking Fenofibrate 160 MG TAKE 1 TABLET BY MOUTH EVERY DAY WITH A MEAL for 90 Active Tamsulosin HCl 0.4 MG 1 capsule Orally Once a day for 90 days Active Immunizations Vaccine Route Administration Date Status Comme nts Influenza, high dose seasonal Unknown 06/26/2018 Admini stered Influenza, seasonal, injecta ble (split), for 3 yrs and up Unknown 07/12/2017 Administered Pneumococcal conjugate PCV 13 Unknown 06/26/2014 Admini stered Pneumococcal polysaccharide PPV23 Unknown 09/05/2005 Administered Pneumococcal polysaccharide PPV23 Unknown 06/26/2015 Administered SHINGRIX Unknown 06/24/2020 Administered #1 06/24/20 Td (adult) preservative free Unknown 09/09/2005 Adminis tered Zoster Unknown 02/04/2012 Administered Social History Tobacco Use: Social History Observation [...] Are you an other tobacco user? Yes Problems Problem Type SNOMED Code ICD Code Onset Dates Problem Status W/U Status Risk Notes Problem 77298550 Type 2 diabetes mellitus with diabetic chronic kidney disease (E11.22) Active confirmed Problem 93107327 Other chronic pain (G89.29) Active confirmed Problem 589475561 Chronic kidney disease, stage 4 (severe) (N18.4) Active confirmed Problem 182987745 Tobacco use (Z72.0) Active confirmed began smoking age 21 - about a half pack a day since that time. Again states he is not interested in smoking cessation . 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 He is distressed by his sx. will refer to [facility] for eval. Problem Diverticular disease of colon (544115515) Diverticulosis (K57.90) Active confirmed Problem Gout (21030376) Gout (M10.9) Active confirmed Problem Diabetic neuropathy (970461107) Diabetic neuropathy (E11.40) Active confirmed A1C 8.25. stressed foot care. has numbness but minimal pain. no meds needed. Dr Hillman began him on B12 supplement. Sees care worker at [place] Problem Dyslipidemia (311696562) Dyslipidemia (E78.5) Active confirmed Problem Essential hypertension (68406508) Essential hypertension (I10) Active confirmed bp normal cont same meds . PIYUSH diet encouraged. Urged to walk or cycle for exercise. 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 voiding sx significant decrease since on tamsulosin. cont same. 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 If BS over 140 take 3 extra units of insulin that day . If over 200, take 5 units that day. AiC 8.4, increasing has appt with endocrine next week. encouraged to reduce portion size of starcy foods. no med change. cont to follow with Dr Timmons. Problem Hypercholesterolemi a (06555635) Hypercholesterol emia (E78.00) Active confirmed lipids LDL high. Change simva to atorvatsatin Problem 709661081 First degree AV block (I44.0) 1904 Active confirmed Problem 34958093 Other age-related cataract of both eyes (H25.89) Active confirmed Problem 95556269 Spinal stenosis of lumbar region without neurogenic claudication (M48.061) 1904 Active confirmed MRI Multilevel spinal stenosis, most at L3/5 Mild to moderate. Aslo bulging discs. able to do all ADL's and walk without assistive device Plan Of Treatment Pending Test Test Name Order Date Hemoglobin A1c 07/22/2022 Hemoglobin A1c 01/01/2021 US ABDOMINAL 12/04/2018 CBC WITH AUTO DIFF 01/01/2021 COMPREHENSIVE METABOLIC PANEL 01/01/2021 LIPID PROFILE 01/01/2021 CXR 06/27/2020 US BILATERAL LOWER EXTREMITIES 9 Lipid Panel 12/06/2019 Comp. Metabolic Panel (14) 12/06/2019 HgA1C 12/06/2019 Future Test Test Name Order Date HgA1C 06/03/2017 Occult Blood, Stool, Guaiac 12/04/2018 Lipid Panel 06/18/2019 Microalb/Creat Ratio, Randm Ur 0 URINE CULTURE & SENSITIVITY 01/29/2020 PSA, total 02/05/2020 HgA1C 06/27/2020 Microalb/Creat Ratio, Randm Ur 1 Lipid Panel 05/25/2021 Comp. Metabolic Panel (14) 05/25/2021 HgA1C 05/25/2021 CBC WITH AUTO DIFF 05/09/2023 LIPID PROFILE 05/09/2023 COMPREHENSIVE METABOLIC PANEL 05/10/2023 GLYCOHEMOGLOBIN PROFILE 05/10/2023 Insurance Providers Payer Name Payer Address Payer Phone Subscriber Number Group Number Insured Name Patient Relationship to Insured Coverage Start Date Coverage End Date [employer] Preferred [address] [place] [id number] Munir Polk Self - patient is the insured Medical (General) History Medical History History ICD Code Chronic kidney disease, stage 3 N18.3 Chronic back back . Had MRI and shots Do esnt help Bilateral knee soreness Surgical History Surgery Date(Month/Year) HISTORY OF FIBEROPTIC, INGUI NAL HERNIA REPAIR, & ORCHIOPEXY INGUINAL APPROACH RIGHT
--- OUTSIDE RECORDS SUMMARY | 2024-11-07 14:22 | XMS_ITS ---
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 Date/Time Encounter Type Encounter Description Reason Pro vider Source Sep 10, 2024 05:32 PM Outpatient Encounter ADMIN PAT ACTIVTIES (MASNONCT) IHE Encounter Template Text not used by [place] Plan of Treatment: Future Appointments (+ 6 [...] 20 appointments. The data comes from all [place] treatment facilities. Appointment Date/Time Appointment Type Appointme nt Facility Name Sep 19, 2024 12:00 PM AMBULATORY - MEDICINE [facility] [place] [facility] Oct 17, 2024 08:00 AM [facility] [place]IC[place] Oct 26, 2024 08:00 AM [facility] - [place]IC[place] Oct 31, 2024 11:30 AM AMBULATORY - MEDICINE [facility] [place] [facility] Nov 09, 2024 10:10 AM [facility]ULATORY - MEDICINE [facility] [place] [facility] Nov 21, 2024 11:00 AM [facility]ORY - [place] [facility] Dec 12, 2024 11:00 AM AMBULATORY - MEDICINE [place] [facility] [place] [facility] January 22, 2025 08:00 AM [facility] [place]IC[place] Feb 05, 2025 10:00 [facility] Active, Pending, and Scheduled Orders This section includes a listing of several types of active, pending, and scheduled orders, including clinic medications orders, diagnostic test orders, procedure orders and consult orders; where the start date of the order is 45 days before the date of the Encounter or 45 days after the date of theEncounter. The data comes from all [facility]. Test Date/Time Test Type Test Details Facility Name Oct 10, 2024 04:30 PM Consult Order [facility]-UROLOGY Cons Front Office Attendant's Choice [place] Lab Results: +/- 30 days of the encounter This section includes the Chemistry and Hematology Lab Results on record with [place] for the patient. Radiology Reports and Pathology Reports are provided separately, in subsequent sections. Lab Results This section contains the Chemistry/Hematology Results that were resulted 30 days before or 30 daysafter the date of the Encounter. Date/Time Source Result Type Result - Unit Interpretation Reference Range Comment Sep 19, 2024 12:43 PM [facility] HEMOGLOBIN A1C PANEL Specimen Type: BLOOD Comment: [...] Sep 19, 2024 12:20 PM Reporting Lab: [facility] [address] [facility] [facility] [address] Performing Lab: [facility] [address] [facility] [address] HEMOGLOBIN A1C 6.7 H 4.0-5.6 Sep 19, 2024 12:43 PM [facility] BASIC METABOLIC PANEL (non-fasting) Specimen Type: SERUM Comment: Hemolysis present may falsly elevate Potassium Total and Direct Bili, Iron, AST, %Fe. Ordering Provider: HALEY GO Report Released Date/Time: Sep 19, 2024 12:20 PM Reporting Lab: [facility] [address] [address] Performing Lab: [address] [address] UREA NITROGEN 22 mg/dL 7-25 GLUCOSE 100 [...] and tobacco- related health factors from the [place] facility where the Encounter took place. Current Smoking Status This section includes the most current smoking, or tobacco-related health factor, from the [place] facility where the Encounter took place. Date/Time Current Smoking Status Comment Facil ity Jul 18, 2020 11:41 AM VA-TOBACCO USER EVERY DAY [facility] Tobacco Use History This section includes a history of the smoking, or tobacco-related health factors, that were collected on or before the date of the Encounter. The data comes from the [place] facility where the Encounter took place. Date/Time Smoking Status/Tobacco Use Comment F acility Jul 18, 2020 11:41 AM VA-TOBACCO USE 30 YEARS OR MORE [facility] [place] [facility] Jul 18, 2020 11:41 AM VA-TOBACCO USE ADVICE [place] [facility] [place] [facility] Jul 18, 2020 11:41 AM VA-TOBACCO USE VISUAL EDUCATOR NO [facility] [place] [facility] Jul 18, 2020 11:41 AM VA-TOBACCO USE MED NO [place] [facility] [place] [facility] Jul 18, 2020 11:41 AM VA-TOBACCO USER EVERY DAY [facility] Advance Directives: All historical and current Section Date Range: From patient's date of to the date document was created. This section includes ALL of a patient's completed or amended [place] Advance and Rescinded Directives. The entries below indicate that a directive exists for the patient, but an actual copy is not included with this document. The data comes from all [place] facilities. Date Advance Directives Provider Source Sep 26, 2015 ADVANCE DIRECTIVE SRINIVAS ANDERSON CHERYLE [place] Encounter Notes: All associated encounter notes This section contains the clinical notes associated to the Encounter. Date/Time Encounter Note(s) Provider Source Sep 10, 2024 05:32 PM PHARMACY NOTE: LOCAL TITLE: PHARMACY CUSTOMER CARE MEDICATION RENEWAL STANDARD TITLE: PHARMACY NOTE DATE OF NOTE: SEP 10, 2024@17:32 ENTRY DATE: SEP 10, 2024@17:32:59 AUTHOR: MENA MONSIVAIS EXP COSIGNER: URGENCY: STATUS: COMPLETED Date: Sep Division: [facility] referred by Pharmacy Call Center for medication renewal: Non-controlled/maintenance medication Medications requested: [id number] INSULIN SYRINGE 1ML 30G 12MM Defer to primary care provider To be mailed . Please review and renew if appropriate. *This note was generated by [facility]. If you have any questions or need assistance, do not contact this author. Please refer all questions to your local, on-site pharmacy departments. /marisela/ MENA MONSIVAIS [facility] [place] Customer Care Signed: 09/10/2024 17:33 Receipt Acknowledged By: 09/16/2024 22:49 /es/ WILIAM BERMAN MD PHYSICIAN 09/11/2024 13:04 /es/ CINDY BERMAN RN REGISTERED NURSE MENA MONSIVAIS [facility]
--- OUTSIDE RECORDS SUMMARY | 2024-11-07 14:22 | XMS_ITS | Encounter Summary ---
Author Name [facility] [place] Organization [facility] [place] Address [address] [place] [id number] Care Team Providers Care Business Analytics Intern Name Role Phone WILIAM BERMAN Primary Care [...] Flood's Name Patient's Relationship to Policy Flood [facility] ([facility]) MEDICARE ADVANTAGE [facility] (R) Sep 05, 2012 HAM [id number] PATIENT [facility] (WNR) MEDICARE ADVANTAGE [facility] (WNR) Sep 05, 2012 [id number] PATIENT Selected Encounter This section includes the information on record at [place] for the Encounter. Date/Time Encounter Type Encounter Description Reason Provider Source Oct 26, 2024 08:00 AM OFFICE O/P EST MOD 30 MIN PODIATRY ICD-10-CM L60.0 Ingrowing nail ALICE CUEVAS Lor Encounter Template Text not used by [facility] Assessments - Encounter Diagnoses This section includes the primary and secondary diagnoses documented for the Encounter. Date/Time Primary/Secondary Diagnosis Diagnosis Name Provider Source Oct 26, 2024 08:24 AM PRIMARY Ingrowing ALICE Javier Oct 26, 2024 08:24 AM SECONDARY Type 2 diabetes w diabetic peripheral angiopath w/o gangrene ALICE CUEVAS Plan of Treatment: Future Appointments (+ 6 months) and Future Tests (+/- 45 days) The Plan of Treatment section includes future care activities for the patient from all [place] [facility]. This section includes future appointments and future orders which are active, pending or scheduled. Future Appointments This section includes appointments that were scheduled to occur 6 months from the date of the Encounter, up to a maximum of 20 appointments. The data comes from all [facility] Appointment Date/Time Appointment Type Appointme nt Facility Name Oct 31, 2024 11:30 AM AMBULATORY - MEDICINE [facility] Nov 09, 2024 10:10 AM [facility] Nov 21, 2024 11:00 AM AM[facility]ULATORY - MEDICINE [facility] Dec 12, 2024 11:00 AM [facility] MEDICINE [facility] [place] [place] [facility] January 22, 2025 08:00 AM AMBULATORY - MEDICINE [facility] Feb 05, 2025 10:00 AM AMBULATORY - MEDICINE [facility] Apr 02, 2025 08:00 AM AMBULATORY - MEDICINE [facility] Active, Pending, and Scheduled Orders This section includes a listing of several types of active, pending, and scheduled orders, including clinic medications orders, diagnostic test orders, procedure orders and consult orders; where the start date of the order is 45 days before the date of the Encounter or 45 days after the date of theEncounter. The data comes from all [facility]. Test Date/Time Test Type Test Details Facility Name Oct 10, 2024 04:30 PM Consult Order COMMUNITY CARE-UROLOGY Cons [employer] [place] Social History: Smoking Status (Most current) and [...] 2023 09:00 AM VA-TOBACCO USER EVERY DAY [place] Tobacco Use History This section includes a history of the smoking, or tobacco-related health factors, that were collected on or before the date of the Encounter. The data comes from the [place] facility where the Encounter took place. Date/Time Smoking Status/Tobacco Use Comment F acility Aug 11, 2023 09:00 AM VA-TOBACCO USE 30 YEARS OR MORE [place] Aug 11, 2023 09:00 AM VA-TOBACCO USE ADVICE [place] Aug 11, 2023 09:00 AM VA-TOBACCO USE MULTIGRAPHER NO [place] Aug 11, 2023 09:00 AM VA-TOBACCO USE MED NO [place] Aug 11, 2023 09:00 AM VA-TOBACCO USER EVERY DAY [place] Aug 12, 2022 09:00 AM VA-TOBACCO USE 30 YEARS OR MORE [place] Aug 12, 2022 09:00 AM VA-TOBACCO USE ADVICE [place] Aug 12, 2022 09:00 AM VA-TOBACCO USE MULTIGRAPHER NO [facility] 08, 2022 09:00 AM VA-TOBACCO USE MED [facility] Aug 12, 2022 09:00 AM [place]BACCO USE [place] 30 MIN OF [facility] Aug 12, 2022 09:00 AM VA-TOBACCO USER EVERY DAY [place] Aug 13, 2021 09:30 AM VA-TOBACCO USE 30 YEARS OR MORE [place] Aug 13, 2021 09:30 AM VA-TOBACCO USE ADVICE [place] Aug 13, 2021 09:30 AM VA-TOBACCO USE MULTIGRAPHER NO [facility] 09, 2021 09:30 AM VA-TOBACCO USE MED [facility] Aug 13, 2021 09:30 AM VA-TOBACCO USE [place] 30 MIN OF [facility] Aug 13, 2021 09:30 AM VA-TOBACCO USER EVERY DAY [place] Jun 23, 2018 09:30 AM VA-TOBACCO USE 30 YEARS OR MORE [place] Jun 23, 2018 09:30 AM VA-TOBACCO USE ADVICE [place] Jun 23, 2018 09:30 AM VA-TOBACCO USE MULTIGRAPHER NO [place] Jun 23, 2018 09:30 AM VA-TOBACCO USE MED NO [place] Jun 23, 2018 09:30 AM VA-TOBACCO USE [place] 30 MIN OF [facility] Jun 23, 2018 09:30 AM VA-TOBACCO USER EVERY DAY [place] Jun 23, 2018 05:05 AM VA-TOBACCO DOESNT USE [place] 30 MIN [facility] Jun 23, 2018 05:05 AM VA-TOBACCO USE 30 YEARS OR MORE [place] Jun 23, 2018 05:05 AM VA-TOBACCO USE ADVICE [place] Jun 23, 2018 05:05 AM VA-TOBACCO USE MULTIGRAPHER NO [place] Jun 23, 2018 05:05 AM VA-TOBACCO USE MED NO [place] Jun 23, 2018 05:05 AM VA-TOBACCO USER EVERY DAY [place] Jun 24, 2017 08:28 AM CURRENT SMOKER cigarettes 3/4 pack daily [place] Jun 24, 2017 08:28 AM V1-PT NOT INTEREST ED IN QUIT TOBACCO USE [place] May 21, 2016 09:13 AM V1-PT NOT INTEREST ED IN QUIT TOBACCO USE [place] Sep 02, 2015 03:57 PM CURRENT SMOKER HALF A PACK A DAY [place] Sep 02, 2015 03:57 PM V1-PT NOT INTEREST ED IN QUIT TOBACCO USE [place] Advance Directives: All historical and current Section [...] Sep 26, 2015 ADVANCE DIRECTIVE TEGAN ANDERSONJEFFERY CHERYLE [place] Encounter Notes: All associated encounter notes This section contains the clinical notes associated to the Encounter. Date/Time Encounter Note(s) Provider Source Oct 26, 2024 08:24 AM PODIATRY NOTE: LOCAL TITLE: PODIATRY PAVE FOOT EXAM STANDARD TITLE: PODIATRY NOTE DATE OF NOTE: OCT 26, 2024@08:24 ENTRY DATE: OCT 26, 2024@08:24:55 AUTHOR: ALICE CUEVAS COSIGNER: URGENCY: STATUS: COMPLETED PAVE FOOT EXAM A foot risk level was completed. The following risk level was identified for this patient: +POD RISK SCORE+ *--LEVEL 3 - (HIGH RISK)* ANY of the following: Severe obstructive peripheral arterial disease Ulceration; OR history of ulceration, osteomyelitis, or amputation Charcot joint w/foot deformity Chronic kidney disease, stage 4 or higher (Decreased sensation, foot deformity, and minor foot infection may be present or absent) LEVEL 3 FOOT EDUCATION: 1. Advised patient that extra depth footwear with soft molded inserts and braces may be required. 2. Advised patient not to walk barefoot. Instructed the patient to pay close attention to the style and fit of shoes. 3. Explained the importance of daily foot checks. Explained that loss of sensation leads to callouses. Callouses break down, which result in ulcers that may lead to gangrene and amputation. 4. Stressed the importance of daily foot hygiene. Warm (not hot) bathing of the feet, complete drying and thorough inspection for changes in the condition of the skin constitute daily foot care. Demonstrated how to do a thorough foot check. 5. Emphasized the use of clean, non-restrictive socks/stockings and well fitting shoes. 6. Stressed the importance of immediate follow-up of any foot injuries or ulcers. Explained that he/she should be non-weight bearing whenever there are lesions on the foot, to prevent cellular damage. Level of Understanding: Good Patient/Family Response to Foot Care Teaching Patient walks barefoot: A few times per month Patient/caregiver able to clean feet at least once daily: Yes Patient/caregiver has difficulty examining feet: No /es/ ALICE CUEVAS DPM INFORMATION WRITER Signed: 10/26/2024 08:25 ALICE CUEVAS Oct 26, 2024 07:26 AM PODIATRY NOTE: LOCAL TITLE: PODIATRY NOTE STANDARD TITLE: PODIATRY NOTE DATE OF NOTE: OCT 26, 2024@07:26 ENTRY DATE: OCT 26, 2024@07:26:45 AUTHOR: ALICE CUEVAS EXP COSIGNER: URGENCY: STATUS: COMPLETED NOTE: HAS RECEIVED BOTH COVID VACCINES + BOOSTER AT [facility] LAST SEEN FOR TREATMENT: 07/18/2024 S: Pt. is a 78 yo alert [facility] M[facility] who is seen for continued podiatric [...] NEEDED. *NOTE: A1c = 6.7 (LAST TAKEN: 09/2024) FBS= 102AM RISK VALUE =3 HEIGHT: 76.5 [...] present physical-medical status. Protective sensation utilizing a Ghent-Florencio lOg monofilament is 10/10 bilateral. *NOTE: *YEARLY COMPLETE PAVE EXAM PERFORMED TODAY - SEE BELOW. DISCUSSED THE FACT THAT HIS NEUROPATHY IN [...] THEY WERE TOO LONG AND PAINFUL ( 01/22 & 04/02 & @8AM) DISCUSSED HIS 'S DETERIORATION WITH [...] AGREES AND UNDERSTANDS PLAN & RECEIVED MIRROR WISHED HIM A HAPPY 55[age] ANNIVERSARY TODAY Medication Reconciliation: PERFORMED TODAY - SEE BELOW. [...] JLV. Allergies/ADRs (Tool #5) FACILITY ALLERGY/ADR [facility] [place] [facility] No Known Allergies [facility] NO KNOWN ALLERGIES Med [facility] Aster (Tool #1) INCLUDED IN THIS LIST: Alphabetical [...] the patient into personal health records (i.e. [employer]) are NOT included in this list. Non-VA [...] Non-VA medication not recommended by VA provider. Remote BACLOFEN 10MG TAB TAKE ONE-HALF TABLET BY MOUTH TWICE A DAY FOR BELCHING Last Filled: 08/22/24 (Active at [facility]) Rx Expiration Date: 08/23/25 Days Supply: 90 OUTPT BENAZEPRIL HCL 20MG TAB (Status = Discontinued) TAKE ONE TABLET BY MOUTH ONCE DAILY FOR HIGH BLOOD PRESSURE Rx# [id number] Last Released: 08/24/24 Qty/Days Supply: Rx Expiration Date: 02/06/25 Refills Remainin Indication: FOR HIGH BLOOD PRESSURE OUTPT BENAZEPRIL HCL 20MG TAB (Status = Active/Suspended) TAKE ONE TABLET BY MOUTH ONCE DAILY FOR HIGH BLOOD PRESSURE Rx# [id number] Last Released: QtDays Supply: Rx Expiration Date: 08/25/25 Refills Remainin Indication: FOR HIGH BLOOD PRESSURE OUTPT CHOLECALCIF 50MCG (D3-2,000UNIT) TAB (Status = Active) TAKE ONE TABLET BY MOUTH ONCE DAILY FOR VITAMIN SUPPLEMENTATION Rx# [id number] Last Released: 07/25/24 Qty/Days Supply: Rx Expiration Date: 02/06/25 Refills Remainin Indication: FOR VITAMIN D DEFICIENCY OUTPT EMPAGLIFLOZIN 25MG TAB (Status = Active) TAKE ONE TABLET BY MOUTH ONCE DAILY FOR TYPE 2 DIABETES MELLITUS Rx# [id number] Last Released: 09/11/24 Qty/Days Supply: Rx Expiration Date: 12/26/24 Refills Remainin Indication: FOR TYPE 2 DIABETES MELLITUS OUTPT FENOFIBRATE 145MG TAB (Status = Active) TAKE ONE TABLET BY MOUTH ONCE DAILY FOR HIGH CHOLESTEROL Rx# [id number] Last Released: 10/16/24 Qty/Days Supply: Rx Expiration Date: 02/06/25 Refills Remainin Indication: FOR HIGH CHOLESTEROL OUTPT FINASTERIDE 5MG TAB (Status = Active) TAKE ONE TABLET BY MOUTH ONCE DAILY Rx# [id number] Last Released: 08/24/24 Qty/Days Supply: Rx Expiration Date: 03/16/25 Refills Remainin OUTPT INSULIN,GLARGINE-YFGN 100UNIT/ML INJ (Status = ) INJECT 75 UNITS SUBCUTANEOUSLY ONCE DAILY FOR TYPE 2 DIABETES MELLITUS THIS REPLACES INSULIN DETEMIR Rx# [id number] Last Released: 07/02/24 Qty/Days Supply: Rx Expiration Date: 09/02/24 Refills Remainin Indication: FOR TYPE 2 DIABETES MELLITUS Remote OMEPRAZOLE 40MG CAP,EC TAKE ONE CAPSULE BY MOUTH TWICE A DAY FOR GASTROESOPHAGEAL REFLUX DISEASE BEST TAKEN BEFORE BREAKFAST Last Filled: 08/22/24 (Active at [facility]) Rx Expiration Date: 08/23/25 Days Supply: Non-VA OTHER CAP/TAB TAKE ONE TOUCH ULTRA BLUE IN VITRO STRIP BY MOUTH FOUR TIMES A DAY Medication prescribed by Non-VA provider. Non-VA PIOGLITAZONE HCL 30MG TAB TAKE ONE TABLET BY MOUTH DAILY Medication prescribed by Non-VA provider. OUTPT SEMAGLUTIDE 0.25MG/0.375ML INJ PEN 3ML (Status = Discontinued) INJECT 0.5MG SUBCUTANEOUSLY ONCE A WEEK FOR TYPE 2 DIABETES MELLITUS Rx# [id number] Last Released: 07/19/24 Qty/Days Supply: 10/02 Rx Expiration Date: 08/02/24 Refills Remainin Indication: FOR TYPE 2 DIABETES MELLITUS OUTPT SEMAGLUTIDE 0.25MG/0.375ML INJ PEN 3ML (Status = Active) INJECT 0.5MG SUBCUTANEOUSLY ONCE A WEEK FOR TYPE 2 DIABETES MELLITUS Rx# [id number] Last Released: 08/30/24 Qty/Days Supply: Rx Expiration Date: 08/27/25 Refills Remainin Indication: FOR TYPE 2 DIABETES MELLITUS OUTPT TAMSULOSIN HCL 0.4MG CAP (Status = Active) TAKE ONE CAPSULE BY MOUTH ONCE DAILY FOR ENLARGED PROSTATE Rx# [id number] Last Released: 07/25/24 Qty/Days Supply: Rx Expiration Date: 02/06/25 Refills Remainin Indication: FOR ENLARGED PROSTATE SUPPLIES OUTPT GLUCOSE SENSOR Asuragen G7 (Status = Active/Suspended) USE 1 SENSOR DIRECTED EVERY 10 DAYS Rx# [id number] Last Released: 09/19/24 Qty/Days Supply: Rx Expiration Date: 07/05/25 Refills Remainin OUTPT INSULIN SYRINGE 1ML 30G 12MM (Status = Discontinued) USE 1 SYRINGE SUBCUTANEOUSLY DAILY FOR INSULIN INJECTIONS Rx# [id number] Last Released: 07/09/24 Qty/Days Supply: 100/90 Rx Expiration Date: 10/27/24 Refills Remainin OUTPT INSULIN SYRINGE 1ML 30G 12MM (Status = Active) USE 1 SYRINGE SUBCUTANEOUSLY DAILY FOR INSULIN INJECTIONS Rx# [id number] Last Released: 09/19/24 Qty/Days Supply: 10090 Rx Expiration Date: 09/17/25 Refills Remainin PAVE Foot Check: A complete foot check was completed at this encounter. VISUAL INSPECTION: Includes inspection for skin breaks, deformity, erythema, trauma, pallor on elevation, dependent rubor, nail deformities, extensive callus and pitting edema. Visual exam results: Normal Comment: NO GROSS ABNORMALITIES NOTED BILAT PEDAL PULSES: Includes palpation of dorsalis and posterior tibial pulses and signs/symptoms of vascular compromise like pain, pallor, parasthesia or paralysis. Absent: Comment: DP & PT PULSES ARE ABSENT NON-PALPABLE BILAT SENSORY CHECK: Includes 10 gram Monofilament (Ghent-Florencio) test of sensation. Intact (Greater than or equal to 80% of sites checked) Abnormal (Less than 80% of sites checked): Abnormal (decreased or absent sensation to monofilament): Comment: VIBRATORY & MONOFILAMENT ARE ABSENT BILAT HIGH-RISK: HIGH RISK INFORMATION PROVIDED: 1. Advised patient that extra depth footwear with soft molded inserts and braces may be required. 2. Advised patient not to walk barefoot. 3. Explained the importance of daily foot checks. 4. Stressed the importance of daily foot hygiene, including bathing, complete drying and thorough inspection for changes. The patient verbalized understanding and was offered a detailed handout on diabetic foot care. Patient is established patient of Podiatry and/or Vascular: Last scheduled appointment: OCT 17, 2024@08:00 [facility] PODIATRY 1 Comment: 07/28/2024 /marisela/ ALICE CUEVAS DPM INFORMATION WRITER Signed: 10/26/2024 08:24 ALICE CUEVAS [place]
--- OUTSIDE RECORDS SUMMARY | 2024-11-07 14:22 | XMS_ITS | Encounter Summary ---
Author Name [facility] Organization [facility] Address [address] [place] [id number] Care Team Providers Care Pricing Specialist Name Role Phone WILIAM BERMAN Primary Care [...] Flood's Name Patient's Relationship to Policy Flood [facility] HEALTH [facility]AN [facility] ([facility]) MEDICARE ADVANTAGE [facility] ([facility]) Sep 05, 2012 HAM [id number] PATIENT [facility] ([facility]) MEDICARE ADVANTAGE [facility] ([facility]) Sep 05, 2012 [id number] PATIENT Selected Encounter This section includes the information on record at [place] for the Encounter. Date/Time Encounter Type Encounter Description Reason Provider Source Nov 23, 2023 08:00 AM OFFICE O/P EST MOD 30 MIN PODIATRY ICD-10-CM L60.0 Ingrowing nail ALICE CUEVAS Lor Encounter Template Text not used by [facility] Assessments - Encounter Diagnoses This section includes the primary and secondary diagnoses documented for the Encounter. 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 This section includes future appointments and future orders which are active, pending or scheduled. Future Appointments This section includes appointments that were scheduled to occur 6 months from the date of the Encounter, up to a maximum of 20 appointments. The data comes from all [place] treatment facilities. Appointment Date/Time Appointment Type Appointme nt Facility Name January 18, 2024 08:00 AM AMBULATORY - MEDICINE [facility] Feb 06, 2024 02:00 PM AMBULATORY - MEDICINE [facility] Mar 15, 2024 08:40 AM [facility] Mar 21, 2024 08:00 AM AMBULATORY - MEDICINE [facility] May 23, 2024 08:00 AM AMBULATORY - MEDICINE [facility] Lab Results: +/- 30 days of the encounter This section includes the Chemistry and Hematology Lab Results on record with [place] for the patient. Radiology Reports and Pathology Reports are provided separately, in subsequent sections. Lab Results This section contains the Chemistry/Hematology Results that were resulted 30 days before or 30 daysafter the date of the Encounter. Date/Time Source Result Type Result - Unit Interpretation Reference Range Comment Nov 23, 2023 08:11 AM [facility] MICROALBUMIN CREATININE RATIO PANEL Spe cimen Type: URINE No comment entered. Ordering Provider: PARAS BENNETT Report Released Date/Time: Nov 22, 2023 09:32 AM Reporting [facility] [address] [address] Performing Lab: [facility] [address] [address] MICROALBUMIN/C REATININE RATIO 7.3 mg/g 0-29.9 MICROALBUMIN,Q UANTITATIVE 0.9 mg/dL RR UNAVAIL CREATININE URINE 122.60 mg/dL Nov 23, 2023 08:11 AM [facility] CALCIUM Specimen Type: SERUM No comment entered. Ordering Provider: PARAS BENNETT Report Released Date/Time: Nov 22, 2023 09:32 AM Reporting Lab: [facility] [address] [address] Performing Lab: [address] [address] CALCIUM 8.7 mg/dL 8.5-10.2 Nov 23, 2023 08:11 AM [facility] URINALYSIS Specimen Type: URINE Comment: If Glucose = >500 and Ketones are positive, please alert the Physician. Ordering Provider: PARAS BENNETT Report Released Date/Time: Nov 22, 2023 09:32 AM Reporting Lab: [address] [address] Performing Lab: [address] [address] UA COLOR Light-Yellow Yellow UA APPEARANCE Clear Clear UA GLUCOSE >1000 mg/dL Negative UA KETONES NEGATIVE mg/dL Negative UA BLOOD NEGATIVE mg/dL Negative UA PROTEIN NEGATIVE mg/dL Negative UA NITRITE NEGATIVE mg/dL Negative UA BILIRUBIN NEGATIVE mg/dL Negative UA SPECIFIC GRAVITY 1.027 H 1.016-1.022 UA pH 5.5 5.0-9.0 UA UROBILINOGEN <2.0 mg/dL <2.0 UA LEUKOCYTE NEGATIVE Negative Nov 23, 2023 08:11 AM [facility] BASIC METABOLIC PANEL (non-fasting) Spe cimen Type: SERUM No comment entered. Ordering Provider: PARAS BENNETT Report Released Date/Time: Nov 22, 2023 09:32 AM Reporting Lab: [address] [address] Performing Lab: [address] [address] UREA NITROGEN 21 mg/dL 7-25 GLUCOSE 97 mg/dL 65-100 SODIUM 138 mmol/L 135-145 POTASSIUM 4.1 mmol/L 3.5-5.0 CHLORIDE 106 mmol/L 100-110 CO2 22 meq/L 20-30 CREATININE, Serum 1.47 mg/dL H 0.50-1.40 eGFR(CKD-EPI 2020) 48 mL/min L >60 Nov 23, 2023 08:11 AM [facility] LIVER FUNCTION Specimen Type: SERUM No comment entered. Ordering Provider: PARAS BENNETT Report Released Date/Time: Nov 22, 2023 09:32 AM Reporting Lab: [address] [address] Performing Lab: [address] [address] PROTEIN,TOTAL 6.6 g/dL 6.0-8.3 ALBUMIN 3.6 g/dL 3.5-5.0 ALKALINE PHOSPHATASE 43 U/L 40-150 AST 19 U/L 5-34 ALT 19 U/L BILIRUBIN, TOTAL 0.8 mg/dL 0.2-1.2 Nov 23, 2023 08:11 AM [facility] LIPID PANEL, NON FASTING Specimen Type: SERUM No comment entered. Ordering Provider: PARAS BENNETT Report Released Date/Time: Nov 22, 2023 09:32 AM Reporting Lab: [address] [address] Performing Lab: [address] [address] CHOLESTEROL 162 mg/dL TRIGLYCERIDE 138 mg/dL 0-150 LDL calculated 97 mg/dL 0-129 CHOL/HDL 4.4 HDL CHOLESTEROL 37 mg/dL L 40-60 Nov 23, 2023 08:11 AM [facility] VITAMIN D (25-OH) Specimen Type: SERUM No comment entered. Ordering Provider: PARAS BENNETT Report Released Date/Time: Nov 22, 2023 09:32 AM Reporting Lab: [address] [address] Performing Lab: [address] [address] VITAMIN D (25-OH) <13 ng/mL L 20-50 Nov 23, 2023 08:11 AM [facility] VITAMIN B12 Specimen Type: SERUM No comment entered. Ordering Provider: PARAS BENNETT Report Released Date/Time: Nov 22, 2023 09:32 AM Reporting Lab: [address] [address] Performing Lab: [address] [address] VITAMIN B12 503 pg/mL 200-900 Nov 23, 2023 08:11 AM [facility] HEMOGLOBIN A1C PANEL Specimen Type: BLOOD Comment: [...] Nov 22, 2023 09:32 AM Reporting Lab: [facility] [address] [address] Performing Lab: [address] [address] HEMOGLOBIN A1C 6.7 H 4.0-5.6 Nov 23, 2023 08:11 AM [facility] TSH Specimen Type: SERUM No comment entered. Ordering Provider: PARAS BENNETT Report Released Date/Time: Nov 22, 2023 09:32 AM Reporting Lab: [facility] [address] Performing [facility]: [facility] [address] [address] TSH 1.74 u[IU]/mL 0.35-5.00 Nov 23, 2023 08:11 AM [facility] CBC AND DIFF (AUTO) Specimen Type: BLOOD No comment entered. Ordering Provider: PARAS BENNETT Report Released Date/Time: Nov 22, 2023 09:32 AM Reporting Lab: [facility] [address] [address] Performing Lab: [facility] [address] WBC 5.90 10*3/uL 4.50-11.00 RBC 4.99 10*6/uL 4.23-5.66 HGB 15.7 g/dL 12.8-17 HCT 46.5 39.2-50.4 MCV 93.2 fL 82-99 MCHC 33.8 g/dL 30.8-35.1 PLT 238 10*3/uL 140-360 RDW-CV 13.6 12.0-16.0 [place], Abs 0.43 10*3/uL 0.30-1.10 MCH 31.5 pg 26.2-32.6 Neut % 53.7 43.7-75.8 Lymph % 34.4 14.0-42.3 [place] % 7.3 5.1-13.7 Eos % 3.4 0.4-6.8 [...] and tobacco- related health factors from the [place] facility where the Encounter took place. Current Smoking Status This section includes the most current smoking, or tobacco-related health factor, from the [place] facility where the Encounter took place. Date/Time Current Smoking Status Comment Facil [facility] Aug 11, 2023 09:00 AM VA-TOBACCO USER EVERY DAY [facility] Tobacco Use History This section includes a history of the smoking, or tobacco-related health factors, that were collected on or before the date of the Encounter. The data comes from the [place] facility where the Encounter took place. Date/Time Smoking Status/Tobacco Use Comment F acility Aug 11, 2023 09:00 AM VA-TOBACCO USE 30 YEARS OR MORE [facility] Aug 11, 2023 09:00 AM VA-TOBACCO USE ADVICE [facility] Aug 11, 2023 09:00 AM VA-TOBACCO USE STUNT PERFORMER NO [facility] Aug 11, 2023 09:00 AM VA-TOBACCO USE MED NO [facility] Aug 11, 2023 09:00 AM VA-TOBACCO USER EVERY DAY [facility] Aug 12, 2022 09:00 AM VA-TOBACCO USE 30 YEARS OR MORE [facility] Aug 12, 2022 09:00 AM VA-TOBACCO USE ADVICE [facility] Aug 12, 2022 09:00 AM VA-TOBACCO USE STUNT PERFORMER NO [facility] Aug 12, 2022 09:00 AM VA-TOBACCO USE MED NO [facility] Aug 12, 2022 09:00 AM VA-TOBACCO USE WI 30 MIN OF WAKEUP [facility] Aug 12, 2022 09:00 AM VA-TOBACCO USER EVERY DAY [facility] Aug 13, 2021 09:30 AM VA-TOBACCO USE 30 YEARS OR MORE [facility] Aug 13, 2021 09:30 AM VA-TOBACCO USE ADVICE [facility] Aug 13, 2021 09:30 AM VA-TOBACCO USE STUNT PERFORMER NO [facility] Aug 13, 2021 09:30 AM VA-TOBACCO USE MED NO [facility] Aug 13, 2021 09:30 AM VA-TOBACCO USE WI 30 MIN OF COLONAUP [facility] Aug 13, 2021 09:30 AM VA-TOBACCO USER EVERY DAY [facility] Jun 23, 2018 09:30 AM VA-TOBACCO USE 30 YEARS OR MORE [facility] Jun 23, 2018 09:30 AM VA-TOBACCO USE ADVICE [facility] Jun 23, 2018 09:30 AM VA-TOBACCO USE STUNT PERFORMER NO [facility] Jun 23, 2018 09:30 AM VA-TOBACCO USE MED NO [facility] Jun 23, 2018 09:30 AM VA-TOBACCO USE WI 30 MIN OF COL[place]UP [facility] Jun 23, 2018 09:30 AM VA-TOBACCO USER EVERY DAY [facility] Jun 23, 2018 05:05 AM VA-TOBACCO DOESNT USE WI 30 MIN [facility] Jun 23, 2018 05:05 AM VA-TOBACCO USE 30 YEARS OR MORE [facility] Jun 23, 2018 05:05 AM VA-TOBACCO USE ADVICE [facility] Jun 23, 2018 05:05 AM VA-TOBACCO USE STUNT PERFORMER NO [facility] Jun 23, 2018 05:05 AM VA-TOBACCO USE MED NO [facility] Jun 23, 2018 05:05 AM VA-TOBACCO USER EVERY DAY [facility] Jun 24, 2017 08:28 AM CURRENT SMOKER cigarettes 3/4 pack daily [facility] Jun 24, 2017 08:28 AM V1-PT NOT INTEREST ED IN QUIT TOBACCO USE [facility] May 21, 2016 09:13 AM V1-PT NOT INTEREST ED IN QUIT TOBACCO USE [facility] Sep 02, 2015 03:57 PM CURRENT SMOKER HALF A PACK A DAY [facility] Sep 02, 2015 03:57 PM V1-PT NOT INTEREST ED IN QUIT TOBACCO USE [facility] Advance Directives: All historical and current Section Date Range: From patient's date of to the date document was created. This section includes ALL of a patient's completed or amended VA Advance and Rescinded Directives. The entries below indicate that a directive exists for the patient, but an actual copy is not included with this document. The data comes from all [place] facilities. Date Advance Directives Provider Source Sep 26, 2015 ADVANCE DIRECTIVE SRINIVAS [place] Encounter Notes: All associated encounter notes This section contains the clinical notes associated to the Encounter. Date/Time Encounter Note(s) Provider Source Nov 23, 2023 08:48 AM PODIATRY NOTE: LOCAL TITLE: PODIATRY PAVE FOOT EXAM STANDARD TITLE: PODIATRY NOTE DATE OF NOTE: NOV 23, 2023@08:48 ENTRY DATE: NOV 23, 2023@08:48:15 AUTHOR: ALICE CUEVAS COSIGNER: URGENCY: STATUS: COMPLETED PAVE FOOT EXAM A foot risk level was completed. The following risk level was identified for this patient: +POD RISK SCORE+ *--LEVEL 2 - (MODERATE RISK)* DECREASED sensation No severe obstructive peripheral arterial disease (Foot deformity and/or minor foot infection may be present or absent) No ulceration, nor history of ulceration, osteomyelitis, or amputation No Charcot joint disease with foot deformity No chronic kidney disease, or less than CKD 4 LEVEL 2 FOOT EDUCATION: 1. Advised patient that therapeutic footwear and orthosis are required to accommodate foot deformities, to compensate for soft tissue atrophy, and to evenly distribute plantar foot pressures. 2. Advised patient not to walk barefoot. [...] Yes Patient/caregiver has difficulty examining feet: No NOTE: HAS RECEIVED 2 COVID VACCINE DOSES AT [facility] LAST SEEN FOR TREATMENT: 07/27/2023 S: Pt. is a 72 yo alert WDWN CAUC MALE who presents for contined podiatric EVALUATION & care for treatment of a presenting complaint of painful ingrown toenails. Patient has TYPE II DM & is at risk of injury with self or other nonprofessional care. Location of symptoms are: MEDIAL & LATERAL HALLUX NAIL BORDERS BILATERAL Onset of symptoms has been several weeks due to this being a recurrent condition that has been exacerbating over the past few dayss. Duration of symptoms is daily with periods of exacerbation and remission. Description of symptoms is of an aching nature WITH PAIN LEVEL 2-3/10 PRIOR TO VISIT AND 0/10 AFTER.Contributing factors are: shoes and increased activity. *DENIES ANY RECENT CHANGES IN MEDS UPON QUESTIONING TODAY-SEE RECONCILIATION PERFORMED THIS DATE BELOW DENIES TOBACCO PMH: Active problems - Computerized Problem List is the source for the following: *NOTE: REVIEWED ABOVE NOTING NO CHANGES SINCE PREVIOUS VISIT (TYPE II DM) *PLEASE SEE PROBLEM LIST TEMPLATE FOR COMPLETE LIST NEEDED. *NOTE: A1c=5.5 (LAST TAKEN: 07/2023) FBS= 182AM (NON-FAST) RISK =2 HEIGHT:194.7 lb [88.5 kg] (12/05/2018 09:22) WEIGHT:66.5 in [168.9 cm] (12/05/2018 09:22) O: DERMATOLOGICAL: Exam reveals skin color,temp & text to be WNL. There is absence of hair noted. Nails are WNL BUT MORE SEVERELY INCURVATED AND MILDLY THICKENED AT THE MEDIAL AND LATERAL HALLUX NAIL BORDERS. There are superficial hyperkeratotic lesions noted at this time MEDIAL HALLUX BILAT. There are no rashes, ulcers, indurations or nodules noted. VASCULAR: Exam reveals DP & PT pulses to be absent non-palpable bilateral. CFT is <3 sec x 10. There are no superficial varices noted and there is no edema noted. MUSCULOSKELETAL: Exam reveals muscle strength and tone to be equal & symmetrical bilaterally & WNL for an individual of this age and present physical-medical condition. There is pain free ROM at all joints distal to and including the ankle. NEUROLOGICAL: Exam reveals S/D, vibratory, light touch & proprioception sensations to be equal & symmetrical bilaterally & WNL for an individual of this age and present physical-medical status. Protective sensation utilizing a Buford-Florencio lOg monofilament is 10/10 bilateral. A: Clinical Impression is painful onychocryptic dystrophic hallux nails & HYPERKERATOSIS in the presence of DM-PVD. P: Treatment consists of trimming-reduction of all nails via manual & electric means with excision of the offending nail borders and thinning of the nail plates to the point of imminent bleeding & PARING OF HYPERKERATOSIS UTILIZING A STERILE # 15 SCALPEL.. Applied ammonium lactate 12% lotion to feet. All care rendered without complications & the patient is progressing well after podiatric care this date and will be scheduled for periodic podiatric care in an attempt to prevent future complications due to the underlying medical conditions. Treatment by a non-professional could be extremely hazardous to the patient's wellbeing due to the underlying medical conditions. RTC 10 WEEKS. (11/22; 01/17 & 03/21 @ 9AM) *WE DISCUSSED APPROPRIATE HOME FOOT CARE & I PROVIDED HIM WITH WRITTEN RECOMMENDATIONS TO REVIEW AT HOME ( FOOT CARE TIPS) FEET ARE IN EXCELLENT CONDITION. *DISCUSSED NEW PROTOCOLS AND WILL BE CALLED FOR RESCHEDULING I DISCUSSED THE FINDINGS & PLAN WITH PATIENT (UNCHANGED SINCE PREVIOUS VISIT) & PATIENT AGREES AND UNDERSTANDS PLAN & NOT IN NEED OF A MIRROR AT THIS TIME. Medication Reconciliation: PERFORMED TODAY - SEE BELOW. [...] Remote Allergy/ADR Data available for this patient [facility] No Known Allergies Med Recon NoGlossary (Tool [...] 90 days. Non-VA Meds Last Documented On: Jul 13, 2022 NOTE The display of VA prescriptions dispensed from another VA or DoD facility (remote) is limited to active outpatient prescription entries matched to National Drug File at the originating site and may not include some items such as investigational drugs, compounds, etc. NOT INCLUDED IN THIS LIST: Medications self-entered by the patient into personal health records (i.e. [email or web address]) are NOT included in this list. Non-VA medications documented outside this VA, remote inpatient orders (regardless of status) and remote clinic medications are NOT included in this list. The patient and provider must always discuss medications the patient is taking, regardless of where the medication was dispensed or obtained. OUTPT AMMONIUM LACTATE 12% LOTION (Status = Active) APPLY SMALL AMOUNT TOPICALLY AT BEDTIME FOR DRY IRRITATED SKIN APPLY UNDER OCCLUSION WITH SARAN WRAP TWICE WEEKLY OR NEEDED Rx# [id number] Last Released: 03/24/23 Qty/Days Supply: Rx Expiration Date: 03/22/24 Refills Remainin OUTPT BUPROPION HCL 300MG 24HR SA TAB (Status = Active) TAKE ONE TABLET BY MOUTH ONCE DAILY Rx# [id number] Last Released: 07/01/23 Qty/Days Supply: Rx Expiration Date: 04/06/24 Refills Remainin Non-VA CHOLECALCIF 25MCG (D3-1,000UNIT) TAB TAKE ONE TABLET BY MOUTH EVERY DAY Non-VA FISH OIL 1000MG (500MG DHA/EPA) CAP TAKE 1 CAPSULE BY MOUTH EVERY DAY OUTPT HYDROCHLOROTHIAZIDE 25MG TAB (Status = Discontinued) TAKE ONE TABLET BY MOUTH EVERY DAY TO PREVENT FLUID/CONTROL BLOOD PRESSURE Rx# [id number] Last Released: 07/01/23 Qty/Days Supply: Rx Expiration Date: 07/14/23 Refills Remainin OUTPT HYDROCHLOROTHIAZIDE 25MG TAB (Status = Active) TAKE ONE TABLET BY MOUTH EVERY DAY TO PREVENT FLUID/CONTROL BLOOD PRESSURE Rx# [id number] Last Released: 09/14/23 Qty/Days Supply: Rx Expiration Date: 07/20/24 Refills Remainin OUTPT IPRATROPIUM BR 0.06% NASAL SPRAY (Status = Active) INSTILL 2 SPRAYS INTO EACH NOSTRIL EVERY 6 HOURS NEEDED FOR RUNNY NOSE Rx# [id number] Last Released: 07/22/23 Qty/Days Supply: Rx Expiration Date: 07/20/24 Refills Remainin Indication: FOR RUNNY NOSE OUTPT LISINOPRIL 2.5MG TAB (Status = ) TAKE ONE TABLET BY MOUTH EVERY DAY TO CONTROL BLOOD PRESSURE Rx# [id number] Last Released: 07/01/23 Qty/Days Supply: Rx Expiration Date: 07/14/23 Refills Remainin OUTPT LISINOPRIL 5MG TAB (Status = Active) TAKE ONE TABLET BY MOUTH ONCE DAILY TO CONTROL BLOOD PRESSURE Rx# [id number] Last Released: 07/22/23 Qty/Days Supply: Rx Expiration Date: 07/20/24 Refills Remainin Indication: FOR HIGH BLOOD PRESSURE OUTPT MELATONIN 5MG CAP/TAB (Status = Active) TAKE ONE CAPSULE/TABLET BY MOUTH AT BEDTIME NEEDED FOR SLEEP Rx# [id number] Last Released: 07/22/23 Qty/ Supply: Rx Expiration Date: 07/20/24 Refills Remainin OUTPT METFORMIN HCL 500MG 24HR SA TAB (Status = Active) TAKE FOUR TABLETS BY MOUTH EVERY MORNING Rx# [id number] Last Released: 07/01/23 Qty/Days Supply: Rx Expiration Date: 01/14/24 Refills Remainin Indication: FOR TYPE 2 DIABETES MELLITUS Non-VA MULTIVITAMIN CAP/TAB TAKE ONE TABLET BY MOUTH ONCE DAILY OUTPT SILDENAFIL CITRATE 50MG TAB (Status = Active) TAKE ONE TABLET BY MOUTH ONCE DAILY NEEDED TAKE 1 HOUR PRIOR TO SEXUAL ACTIVITY Rx# [id number] Last Released: 07/22/23 Qty/Days Supply: 03/04 Rx Expiration Date: 07/20/24 Refills Remainin Indication: FOR ERECTILE DYSFUNCTION OUTPT SIMVASTATIN 80MG TAB (Status = Discontinued) TAKE ONE-HALF TABLET BY MOUTH EVERY DAY FOR CHOLESTEROL Rx# [id number] Last Released: 07/01/23 Qty/Days Supply: Rx Expiration Date: 07/14/23 Refills Remainin OUTPT SIMVASTATIN 80MG TAB (Status = Active) TAKE ONE-HALF TABLET BY MOUTH EVERY DAY FOR CHOLESTEROL Rx# [id number] Last Released: 09/14/23 Qty/Days Supply: Rx Expiration Date: 07/20/24 Refills Remainin OUTPT TRAZODONE HCL 100MG TAB (Status = Discontinued) TAKE ONE-HALF TABLET BY MOUTH AT BEDTIME NEEDED FOR SLEEP Rx# [id number] Last Released: 11/12/22 Qty/Days Supply: 45 Rx Expiration Date: 07/02/23 Refills Remainin OUTPT TRAZODONE HCL 100MG TAB (Status = Active) TAKE ONE-HALF TABLET BY MOUTH AT BEDTIME NEEDED FOR SLEEP Rx# [id number] Last Released: 07/22/23 Qty/Days Supply: 45 Rx Expiration Date: 07/20/24 Refills Remainin SUPPLIES OUTPT ACCU-CHEK GUIDE (GLUCOSE) TEST STRIP (Status = Active) USE 1 STRIP TO TEST BLOOD SUGARS ONCE A WEEK FOR SUGAR CHECK Rx# [id number] Last Released: 03/23/23 Qty Supply: 50/180 Rx Expiration Date: 03/22/24 Refills Remainin Indication: FOR SUGAR CHECK /marisela/ ALICE CUEVAS DPM HOSPITAL MEDICINE DIRECTOR Signed: 09/21/2023 09:27 /marisela/ ALICE CUEVAS DPM HOSPITAL MEDICINE DIRECTOR Signed: 11/23/2023 08:49 ALIEC CUEVAS Nov 23, 2023 07:22 AM PODIATRY NOTE: LOCAL TITLE: PODIATRY NOTE STANDARD TITLE: PODIATRY NOTE DATE OF NOTE: NOV 23, 2023@07:22 ENTRY DATE: NOV 23, 2023@07:22:53 AUTHOR: ALICE CUEVAS EXP COSIGNER: URGENCY: STATUS: COMPLETED PODIATRY NOTE Has ADDENDA NOTE: HAS RECEIVED BOTH COVID VACCINES + BOOSTER AT [facility] LAST SEEN FOR TREATMENT: 09/28/2023 S: Pt. is a 77 yo alert WDWN CAUC MALE who is [...] FOR COMPLETE LIST NEEDED. *NOTE: A1c = 8.4 (LAST TAKEN: 07/2021) FBS= 88AM RISK VALUE =3 HEIGHT: 76.5 [...] present physical-medical status. Protective sensation utilizing a Buford-Florencio lOg monofilament is 10/10 bilateral. *NOTE: *YEARLY [...] THEY WERE TOO LONG AND PAINFUL ( 01/17. 03/21 & 05/23 @8AM) *REVIEWED HOME FOOT CARE FEET ARE IN [...] NAILS HE LIKES THEM A BIT LONGER. discusssed the mild snow flurries toadya despite spring AND IS DOING VERY WELL Medication Reconciliation: PERFORMED TODAY - SEE BELOW. Outpatient: Has the patient been taking medications as documented in the EMLR? YES: The patient has been taking medications as documented in the EMLR. Essential Medication List for Review used to complete this medication reconciliation. INCLUDED IN THIS LIST: Alphabetical list of active outpatient prescriptions dispensed from this VA (local) and dispensed from another [place] or [facility] facility (remote) as well as [...] Remote Allergy/ADR Data available for this patient [facility] No Known Allergies Med [facility] [place] (Tool #1) INCLUDED IN THIS LIST: Alphabetical list of active outpatient prescriptions dispensed from this [place] (local) and dispensed from another VA or [...] the patient into personal health records (i.e. [email or web address]) are NOT included in this list. Non-VA medications documented outside this [place], remote inpatient orders (regardless of status) and remote clinic medications are NOT included in this list. The patient and provider must always discuss medications the patient is taking, regardless of where the medication was dispensed or obtained. Non-VA ASPIRIN 81MG EC TAB TAKE ONE TABLET BY MOUTH DAILY Medication prescribed by Non-VA provider. OUTPT ARTHURAZEPRIL HCL 20MG TAB (Status = Active) TAKE ONE TABLET BY MOUTH ONCE DAILY FOR HIGH BLOOD PRESSURE Rx# [id number] Last Released: 08/24/23 Qty/Days Supply: Rx Expiration Date: 03/23/24 Refills Remainin Indication: FOR HIGH BLOOD PRESSURE Non-VA CYANOCOBALAMIN TAB TAKE BY MOUTH ONCE DAILY Medication prescribed by Non-VA provider. OUTPT EMPAGLIFLOZIN 25MG TAB (Status = Active) TAKE ONE TABLET BY MOUTH ONCE DAILY Rx# [id number] Last Released: 08/24/23 Qty/Days Supply: Rx Expiration Date: 12/02/23 Refills Remainin Indication: FOR TYPE 2 DIABETES MELLITUS Non-VA FENOFIBRATE 160MG TAB TAKE ONE TABLET BY MOUTH DAILY Medication prescribed by Non-VA provider. OUTPT INSULIN,GLARGINE-YFGN 100UNIT/ML INJ (Status = Active) INJECT 75 UNITS SUBCUTANEOUSLY ONCE DAILY FOR TYPE 2 DIABETES MELLITUS THIS REPLACES INSULIN DETEMIR Rx# [id number] Last Released: 08/25/23 Qty/Days Supply: Rx Expiration Date: 09/02/24 Refills [...] WEEK FOR TYPE 2 DIABETES MELLITUS Rx# [id number] Last Released: 11/22/23 Qty/Days Supply: 10/02 Rx Expiration Date: 08/02/24 Refills Remainin Indication: FOR TYPE 2 DIABETES MELLITUS Non-VA TAMSULOSIN HCL 0.4MG CAP TAKE 1 CAPSULE BY MOUTH ONCE DAILY Non-VA medication not recommended by VA provider. Medication prescribed by Non-VA provider. SUPPLIES OUTPT INSULIN SYRINGE 1ML 30G 12MM (Status = Discontinued) USE 1 SYRINGE SUBCUTANEOUSLY DAILY FOR INSULIN INJECTIONS Rx# [id number] Last Released: 06/22/23 Qty/Days Supply: 100/90 Rx Expiration Date: 10/05/23 Refills Remainin OUTPT INSULIN SYRINGE 1ML 30G 12MM (Status = Active) USE 1 SYRINGE SUBCUTANEOUSLY DAILY FOR INSULIN INJECTIONS Rx# [id number] Last Released: 10/27/23 Qty/Days Supply: 100/90 Rx Expiration Date: 10/27/24 Refills Remainin /marisela/ ALICE CUEVAS DPM HOSPITAL MEDICINE DIRECTOR Signed: 11/23/2023 08:11 11/23/2023 ADDENDUM STATUS[facility]: A complete foot check was completed at this encounter. VISUAL INSPECTION: Includes inspection for skin breaks, deformity, erythema, trauma, pallor on elevation, dependent rubor, nail deformities, extensive callus and pitting edema. Visual exam results: Normal Comment: no gross le abnormalities noted bilateral PEDAL PULSES: Includes palpation of dorsalis and posterior tibial pulses and signs/symptoms of vascular compromise like pain, pallor, parasthesia or paralysis. Absent: Comment: DP & PT PULSES ARE ABSENT NON-PALPABLE BILATERAL SENSORY CHECK: Includes 10 gram Monofilament (Buford-Florencio) test of sensation. Intact (Greater than or equal to 80% of sites checked) Abnormal (Less than 80% of sites checked): Abnormal (decreased or absent sensation to monofilament): Comment: VIBRATORY & MONOFILAMENT SENSATIONS ARE ABSENT BILAT HIGH-RISK HIGH RISK FOOT EDUCATION: 1. Advised patient that extra [...] prevent cellular damage. Level of Understanding: Good Patient is established patient of Podiatry and/or Vascular Date last seen: 09/28/2022 /marisela/ ALICE CUEVAS DPM HOSPITAL MEDICINE DIRECTOR Signed: 11/23/2023 08:51 ALICE CUEVAS
--- OUTSIDE RECORDS SUMMARY | 2024-11-07 14:22 | XMS_ITS | Encounter Summary ---
Author Name [facility] Organization [facility] Address [address] [place] [id number] Care Team Providers Care Librarian Special Library Name Role Phone WILIAM BERMAN Primary Care [...] Flood [facility] HEALTH PLAN [facility] MEDICARE ADVANTAGE [facility] (R) Sep 05, 2012 [id number] [id number] PATIENT [facility] (WNR) MEDICARE ADVANTAGE [facility] (WNR) Sep 05, 2012 [id number]K PATIENT Selected Encounter This section includes the information on record at [place] for the Encounter. Date/Time Encounter Type Encounter Description Reason Provider Source May 23, 2024 08:00 AM OFFICE O/P EST LOW 20 MIN PODIATRY ICD-10-CM L60.0 Ingrowing nail ALICE CUEVAS Lor Encounter Template Text not used by VA Assessments - Encounter Diagnoses This section includes the primary and secondary diagnoses documented for the Encounter. Date/Time Primary/Secondary Diagnosis Diagnosis Name Provider Source May 23, 2024 08:17 AM PRIMARY Ingrowing nail ALICE CUEVAS [place] May 23, 2024 08:17 AM SECONDARY Pain in left toe(s) ALICE CUEVAS [place] May 23, 2024 08:17 AM SECONDARY Pain in right toe(s) ALICE CUEVAS May 23, 2024 08:17 AM SECONDARY Type 2 diabetes w diabetic peripheral angiopath w/o gangrene ALICE CUEVAS Plan of Treatment: Future Appointments (+ 6 months) and Future Tests (+/- 45 days) The Plan of Treatment section includes future care activities for the patient from all [place] treatmentfacilities. This section includes future appointments and future orders which are active, pending or scheduled. Future Appointments This section includes appointments that were scheduled to occur 6 months from the date of the Encounter, up to a maximum of 20 appointments. The data comes from all [place] treatment facilities. Appointment Date/Time Appointment Type Appointme nt Facility Name Jun 28, 2024 09:30 AM AMBULATORY - MEDICINE [place] [facility] [place] [facility] Jul 05, 2024 11:30 AM [facility] Jul 18, 2024 08:00 AM AMBULATORY - MEDICINE [facility] Aug 22, 2024 10:00 AM [facility] Sep 19, 2024 12:00 PM AMBULATORY - MEDICINE [place] [facility] [place] [facility] Oct 17, 2024 08:00 AM AMBULATORY - MEDICINE [facility] Oct 26, 2024 08:00 AM AMBULATORY - MEDICINE [facility] Oct 31, 2024 11:30 AM AMBULATORY - MEDICINE [place] [facility] [place] [facility] Nov 09, 2024 10:10 AM AMBULATORY - MEDICINE [facility] Lab Results: +/- 30 days of the encounter This section includes the Chemistry and Hematology Lab Results on record with [place] for the patient. Radiology Reports and Pathology Reports are provided separately, in subsequent sections. Lab Results This section contains the Chemistry/Hematology Results that were resulted 30 days before or 30 daysafter the date of the Encounter. Date/Time Source Result Type Result - Unit Interpretation Reference Range Comment Jun 20, 2024 09:05 AM [facility] H PYLORI ANTIBODY Specimen Type: SERUM No comment entered. Ordering Provider: WILIAM EPPS Report Released Date/Time: Feb 12, 2024 06:47 PM Reporting Lab: [address] [address] Performing Lab: [facility] [address] [facility] [address] H PYLORI IgG NEGATIVE NEGATIVE Jun 20, 2024 09:05 AM [facility] HEMOGLOBIN A1C PANEL Specimen Type: BLOOD Comment: [...] Feb 12, 2024 06:48 PM Reporting Lab: [address] [address] Performing Lab: [address] [address] HEMOGLOBIN A1C 6.6 H 4.0-5.6 Jun 20, 2024 09:05 AM [facility] MICROALBUMIN CREATININE RATIO PANEL Spe cimen Type: URINE No comment entered. Ordering Provider: WILIAM EPPS Report Released Date/Time: Feb 12, 2024 06:48 PM Reporting Lab: [facility] [address] [facility] [address] Performing Lab: [address] [address] MICROALBUMIN/C REATININE RATIO 17.5 mg/g 0-29.9 MICROALBUMIN,Q UANTITATIVE 1.7 mg/dL RR UNAVAIL CREATININE URINE 97.12 mg/dL Jun 20, 2024 09:05 AM [facility] BASIC METABOLIC PANEL (fasting) Specime n Type: SERUM No comment entered. Ordering Provider: WILIAM EPPS Report Released Date/Time: Feb 12, 2024 06:48 PM Reporting Lab: [address] [address] Performing Lab: [address] [address] UREA NITROGEN 24 mg/dL 7-25 GLUCOSE 126 [...] and tobacco- related health factors from the [place] facility where the Encounter took place. Current Smoking Status This section includes the most current smoking, or tobacco-related health factor, from the [place] facility where the Encounter took place. Date/Time Current Smoking Status Comment Facil [facility] Aug 11, 2023 09:00 AM VA-TOBACCO USER EVERY DAY [facility] Tobacco Use History This section includes a history of the smoking, or tobacco-related health factors, that were collected on or before the date of the Encounter. The data comes from the [place] facility where the Encounter took place. Date/Time Smoking Status/Tobacco Use Comment [facility] Aug 11, 2023 09:00 AM VA-TOBACCO USE 30 YEARS OR MORE [facility] Aug 11, 2023 09:00 AM VA-TOBACCO USE ADVICE [facility] Aug 11, 2023 09:00 AM VA-TOBACCO USE COMMUNITY RESOURCE OFFICER NO [facility] Aug 11, 2023 09:00 AM VA-TOBACCO USE MED NO [facility] Aug 11, 2023 09:00 AM VA-TOBACCO USER EVERY DAY [facility] Aug 12, 2022 09:00 AM VA-TOBACCO USE 30 YEARS OR MORE [facility] Aug 12, 2022 09:00 AM VA-TOBACCO USE ADVICE [facility] Aug 12, 2022 09:00 AM VA-TOBACCO USE COMMUNITY RESOURCE OFFICER NO [facility] Aug 12, 2022 09:00 AM VA-TOBACCO USE MED NO [facility] Aug 12, 2022 09:00 AM VA-TOBACCO USE WI 30 MIN OF WAKEUP [facility] Aug 12, 2022 09:00 AM VA-TOBACCO USER EVERY DAY [facility] Aug 13, 2021 09:30 AM VA-TOBACCO USE 30 YEARS OR MORE [facility] Aug 13, 2021 09:30 AM VA-TOBACCO USE ADVICE [facility] Aug 13, 2021 09:30 AM VA-TOBACCO USE COMMUNITY RESOURCE OFFICER NO [facility] Aug 13, 2021 09:30 AM VA-TOBACCO USE MED NO [facility] Aug 13, 2021 09:30 AM VA-TOBACCO USE WI 30 MIN OF AUBURNUP [facility] Aug 13, 2021 09:30 AM VA-TOBACCO USER EVERY DAY [facility] Jun 23, 2018 09:30 AM VA-TOBACCO USE 30 YEARS OR MORE [facility] Jun 23, 2018 09:30 AM VA-TOBACCO USE ADVICE [facility] Jun 23, 2018 09:30 AM VA-TOBACCO USE COMMUNITY RESOURCE OFFICER NO [facility] Jun 23, 2018 09:30 AM VA-TOBACCO USE MED NO [facility] Jun 23, 2018 09:30 AM VA-TOBACCO USE [place] 30 MIN OF [facility] Jun 23, 2018 09:30 AM VA-TOBACCO USER EVERY DAY [facility] Jun 23, 2018 05:05 AM VA-TOBACCO DOESNT USE WI 30 MIN [facility] Jun 23, 2018 05:05 AM VA-TOBACCO USE 30 YEARS OR MORE [facility] Jun 23, 2018 05:05 AM VA-TOBACCO USE ADVICE [facility] Jun 23, 2018 05:05 AM VA-TOBACCO USE COMMUNITY RESOURCE OFFICER NO [facility] Jun 23, 2018 05:05 AM VA-TOBACCO USE MED NO [facility] Jun 23, 2018 05:05 AM VA-TOBACCO USER EVERY DAY [facility] Jun 24, 2017 08:28 AM CURRENT SMOKER cigarettes 3/4 pack daily [facility] Jun 24, 2017 08:28 AM V1-PT NOT INTEREST ED IN QUIT TOBACCO USE [facility] May 21, 2016 09:13 AM V1-PT NOT INTEREST ED IN QUIT TOBACCO USE [facility] Sep 02, 2015 03:57 PM CURRENT SMOKER HALF A PACK A DAY [facility] Sep 02, 2015 03:57 PM V1-PT NOT INTEREST ED IN QUIT TOBACCO USE [facility] Advance Directives: All historical and current Section Date Range: From patient's date of to the date document was created. This section includes ALL of a patient's completed or amended VA Advance and Rescinded Directives. The entries below indicate that a directive exists for the patient, but an actual copy is not included with this document. The data comes from all [place] facilities. Date Advance Directives Provider Source Sep 26, 2015 ADVANCE DIRECTIVE SRINIVAS ANDERSON [facility] Encounter Notes: All associated encounter notes This section contains the clinical notes associated to the Encounter. Date/Time Encounter Note(s) Provider Source May 23, 2024 07:23 AM PODIATRY NOTE: LOCAL TITLE: PODIATRY NOTE STANDARD TITLE: PODIATRY NOTE DATE OF NOTE: MAY 23, 2024@07:23 ENTRY DATE: MAY 23, 2024@07:23:10 AUTHOR: ALICE CUEVAS COSIGNER: URGENCY: STATUS: COMPLETED NOTE: HAS RECEIVED BOTH COVID VACCINES + BOOSTER AT [facility] LAST SEEN FOR TREATMENT: 03/21/2024 S: Pt. is a 78 yo alert [...] A1c = 6.7 (LAST TAKEN: 11/2023) FBS= 102AM RISK VALUE =3 HEIGHT: 76.5 [...] present physical-medical status. Protective sensation utilizing a [place]-Florencio lOg monofilament is 10/10 bilateral. DISCUSSED THE [...] THEY WERE TOO LONG AND PAINFUL ( 07/18& 10/17 @8AM) DISCUSSED HIS 'S DETERIORATION WITH ALZHEIMERS [...] Remote Allergy/ADR Data available for this patient [place] [facility] [place] [facility] No Known Allergies Med Recon NoGlossary (Tool #1) INCLUDED IN THIS LIST: Alphabetical list of active outpatient prescriptions dispensed from this [place] (local) and dispensed from another VA or [...] the patient into personal health records (i.e. [employer] are NOT included in this list. Non-VA medications documented outside this [place], remote inpatient orders (regardless of status) and [...] ONCE DAILY FOR HIGH BLOOD PRESSURE Rx# [id number] Last Released: 05/12/24 Qty/Days Supply: Rx Expiration Date: 02/06/25 Refills Remainin Indication: FOR HIGH BLOOD PRESSURE OUTPT CHOLECALCIF 50MCG (D3-2,000UNIT) TAB (Status = Active) TAKE ONE TABLET BY MOUTH ONCE DAILY FOR VITAMIN SUPPLEMENTATION Rx# [id number] Last Released: 05/12/24 Qty/Days Supply: Rx Expiration Date: 02/06/25 Refills Remainin Indication: FOR VITAMIN D DEFICIENCY OUTPT EMPAGLIFLOZIN 25MG TAB (Status = Active/Suspended) TAKE ONE TABLET BY MOUTH ONCE DAILY FOR TYPE 2 DIABETES MELLITUS Rx# [id number] Last Released: 04/06/24 Qty/Days Supply: Rx Expiration Date: 12/26/24 Refills Remainin Indication: FOR TYPE 2 DIABETES MELLITUS OUTPT FENOFIBRATE 145MG TAB (Status = Active/Suspended) TAKE ONE TABLET BY MOUTH ONCE DAILY FOR HIGH CHOLESTEROL Rx# [id number] Last Released: 04/24/24 Qty/Days Supply: Rx Expiration Date: 02/06/25 Refills Remainin Indication: FOR HIGH CHOLESTEROL OUTPT FINASTERIDE 5MG TAB (Status = Discontinued) TAKE ONE TABLET BY MOUTH ONCE DAILY FOR ENLARGED PROSTATE Rx# [id number] Last Released: 02/08/24 Qty/Days Supply: Rx Expiration Date: 02/06/25 Refills Remainin Indication: FOR ENLARGED PROSTATE OUTPT FINASTERIDE 5MG TAB (Status = Active/Suspended) TAKE ONE TABLET BY MOUTH ONCE DAILY Rx# [id number] Last Released: 05/01/24 Qty/Days Supply: Rx Expiration Date: 03/16/25 Refills Remainin OUTPT INSULIN,GLARGINE-YFGN 100UNIT/ML INJ (Status = Active/Suspended) INJECT 75 UNITS SUBCUTANEOUSLY ONCE DAILY FOR TYPE 2 DIABETES MELLITUS THIS REPLACES INSULIN DETEMIR Rx# [id number] Last Released: 04/25/24 Qty/Days Supply: Rx Expiration Date: 09/02/24 Refills [...] WEEK FOR TYPE 2 DIABETES MELLITUS Rx# [id number] Last Released: 05/09/24 Qty/Days Supply: 10/02 Rx Expiration Date: 08/02/24 Refills Remainin Indication: FOR TYPE 2 DIABETES MELLITUS OUTPT TAMSULOSIN HCL 0.4MG CAP (Status = Active) TAKE ONE CAPSULE BY MOUTH ONCE DAILY FOR ENLARGED PROSTATE Rx# [id number] Last Released: 05/12/24 Qty/Days Supply: Rx Expiration Date: 02/06/25 Refills Remainin Indication: FOR ENLARGED PROSTATE SUPPLIES OUTPT INSULIN SYRINGE 1ML 30G 12MM (Status = Active/Suspended) USE 1 SYRINGE SUBCUTANEOUSLY DAILY FOR INSULIN INJECTIONS Rx# [id number] Last Released: 04/25/24 Qty/Days Supply: Rx Expiration Date: 10/27/24 Refills Remainin /marisela/ ALICE CUEVAS DPM WOOD TYPE CUTTER Signed: 05/23/2024 08:18 ALICE CUEVAS [place]
--- OUTSIDE RECORDS SUMMARY | 2024-11-07 14:22 | XMS_ITS | Continuity of Care Document ---
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 It does not include entries that were removed or entered in error. Problem Status Onset Date Problem Type Date of Resolution Comments Source Cataract Active Condition Sep 10 16 Entered By: PATRICK FLORES Comment: Surg, OU 2015 [place] Cholelithiasis without obstruction Active Condition Feb 06, 2024 Entered By: WILIAM KEITA Comment: CT abdomen 12/2023 at [facility] Chronic kidney disease stage 3 Active Condition [place] Cobalamin deficiency Active Condition [facility] [place] [facility] Colonoscopy Screening Active Condition Jun 23, 2018 Entered By: ALEYDA ONOFRE Comment: Approx 09/2013 @ [facility] - Neg CRC, + diverticulosis -repeat 10 yrs per vet (2023) [place] Exposure to potentially hazardous substance Active Condition Nov 24, 2023 Entered By: ASHLIE BARLOW Comment: Original RIVAS Screening 10/06/22 [facility] [place] [facility] First degree atrioventricular block Active Condition [place] Gastroesophageal reflux disease Active Condition [place] Gout Active Condition [place] [facility]ension [facility] Inguinal hernia Active Condition Sep 10, 2015 Entered By: PATRICK FLORES Comment: IHR, R Side at Age 14Jun 24, 2017 Entered By: ALEYDA ONOFRE Comment: also Release of Undescended Testicle [place] Mixed hyperlipidemia Active Condition [place] Obesity Active Condition [facility] [place] [facility] Pigmented hairy epidermal nevus Active Condition Sep 10, 2015 Entered By: PATRICK FLORES Comment: a Nevus Bx'd Yrs Ago (shldr?): Neg [place] 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 [facility] [place] [facility] Primary Care Physician Active Condition Jun 24, 2017 Entered By: ALEYDA ONOFRE Comment: Dr Tom Sandoval [place] Tobacco dependence Active Condition [facility] Type 2 diabetes mellitus Active Condition Jun 24, 2017 Entered By: ALEYDA ONOFRE Comment: with Diabetic Nephropathy & Mild Peripheral NeuropathyJun 24, 2017 Entered By: ALEYDA ONOFRE Comment: Dr Cesar in [facility] Vitamin D Deficiency (SCT [id number]) Active Condition [place] Vaccine Inactive Condition 06/24/2017 Sep 10 016 Entered By: PATRICK FLORES Comment: Zoster FEBRUARY 14; Prevnar 13 FEBRUARY 17; Pneumovax JUN 18;Sep 10, 2015 Entered By: PATRICK FLORES Comment: Tdap 2005; Flu JUN 19 [place] Diagnosis: ICD-10-CM E11.9 Type 2 diabetes mellitus without complications Active Diagnosis [place] Diagnosis: ICD-10-CM L60.0 Ingrowing nail Active Diagnosis [facility] Diagnosis: ICD-10-CM K21.9 Gastro-esophageal reflux disease without esophagitis Active Diagnosis [facility] Diagnosis: ICD-10-CM I10 Essential (primary) hypertension Active Diagnosis [place] Diagnosis: ICD-10-CM E11.42 Type 2 diabetes mellitus with diabetic polyneuropathy Active Diagnosis [facility] Diagnosis: ICD-10-CM Z46.1 Encounter for fitting and adjustment of hearing aid Active Diagnosis [place] Diagnosis: ICD-10-CM Z02.89 Encounter for other administrative examinations Active Diagnosis [facility] Medications Combined list of outpatient medications from Department of Defense and Veterans Affairs facilities.Medications provided include 1) outpatient medications from the last 15 months, and 2) patient-reported medications. Medication Details Route Status Patient Instructions Prescription Expires Prescription Number Last Dispense Date Ordering Provider Order Date Order Qty Source ASPIRIN 81MG TAB,EC TAKE ONE TABLET BY MOUTH DAILY ORAL ACTIVE BREONNA ONOFRE SA 2016 [facility] 40MG TAB TAKE ONE-HALF TABLET BY MOUTH ONCE DAILY ORAL ACTIVE Jada GO A 2023 [facility] IELD BACLOFEN 10MG TAB TAKE ONE-HALF TABLET BY MOUTH TWICE A DAY FOR BELCHING ORAL ACTIVE 08/23/2025 [id number] EVE,IKECH [facility] 2023 90 [facility] BENAZEPRIL HCL 20MG TAB TAKE ONE TABLET BY MOUTH ONCE DAILY FOR HIGH BLOOD PRESSURE ORAL ACTIVE 08/25/2025 [id number] WILIAM CORBIN 2024 90 [place] BENAZEPRIL HCL 20MG TAB TAKE ONE TABLET BY MOUTH ONCE DAILY FOR HIGH BLOOD PRESSURE ORAL DISCONT INUED 02/06/2025 [id number] WILIAM CORBIN 2023 90 [place] BENAZEPRIL HCL 20MG TAB TAKE ONE TABLET BY MOUTH ONCE DAILY FOR HIGH BLOOD PRESSURE ORAL DISCONT INUED 03/23/2024 [id number] BREONNA ONOFRE SA 2022 90 [facility] CHOLECALCIF FARHAT 50MCG (2,000UNIT) TAB TAKE ONE TABLET BY MOUTH ONCE DAILY FOR VITAMIN SUPPLEME NTATION ORAL ACTIVE 02/06/2025 [id number] WILIAM CORBIN 2023 100 [place] EMPAGLIFLOZ IN 25MG TAB TAKE ONE TABLET BY MOUTH ONCE DAILY FOR TYPE 2 DIABETES MELLITUS ORAL SUSPEND ED 11/01/2025 [id number] Jada GO 2024 90 [place] EMPAGLIFLOZ IN 25MG TAB TAKE ONE TABLET BY MOUTH ONCE DAILY FOR TYPE 2 DIABETES MELLITUS ORAL DISCONT INUED 12/26/2024 [id number] Pritesh BENNETT 2023 90 [place] EMPAGLIFLOZ IN 25MG TAB TAKE ONE TABLET BY MOUTH ONCE DAILY ORAL DISCONT INUED 12/02/2023 [id number] BREONNA ONOFRE SA 2022 90 [place] FENOFIBRATE 145MG TAB TAKE ONE TABLET BY MOUTH ONCE DAILY FOR HIGH CHOLESTE ROL ORAL ACTIVE 02/06/2025 [id number] WILIAM CORBIN 2023 90 [place] FINASTERIDE 5MG TAB TAKE ONE TABLET BY MOUTH ONCE DAILY ORAL ACTIVE 03/16/2025 [id number] LOLLY SY 2023 90 [facility] IELD FINASTERIDE 5MG TAB TAKE ONE TABLET BY MOUTH ONCE DAILY FOR ENLARGED PROSTATE ORAL DISCONT INUED 02/06/2025 [id number] WILIAM CORBIN 2023 90 [facility] IELD INSULIN SYRINGE 1ML 30G 12MM USE 1 [place] SUBCUTAN EOUSLY DAILY FOR INSULIN INJECTIO NS SUBCUT ANEOUS ACTIVE 09/17/2025 [id number] WILIAM CORBIN 2024 100 [facility] IELD INSULIN SYRINGE 1ML 30G 12MM USE 1 [place] SUBCUTAN EOUSLY DAILY FOR INSULIN INJECTIO NS SUBCUT ANEOUS DISCONT INUED 10/27/2024 [id number] RAMESH FLORES 2023 100 [facility] IELD INSULIN,GLA RGINE-YFGN 100UNIT/ML INJ INJECT 75 UNITS SUBCUTAN EOUSLY ONCE DAILY FOR TYPE 2 DIABETES MELLITUS THIS REPLACES INSULIN DETEMIR* * SUBCUT ANEOUS 09/02/2024 [id number] BREONNA ONOFRE SA 2022 5 [facility] OMEPRAZOLE 40MG CAP,EC TAKE ONE CAPSULE BY MOUTH TWICE A DAY FOR GASTROES OPHAGEAL REFLUX DISEASE BEST TAKEN BEFORE BREAKFAS T ORAL ACTIVE 08/23/2025 [id number] 4 EVE,IKECH [facility] 2023 180 [facility] OTHER CAP/TAB TAKE ONE TOUCH ULTRA BLUE IN VITRO STRIP BY MOUTH FOUR TIMES A DAY ORAL ACTIVE RAMESH FLORES 2015 [facility] IELD SEMAGLUTIDE 0.25MG/0.37 5ML INJ,SOLN,PE N,3ML INJECT 0.5MG SUBCUTAN EOUSLY ONCE A WEEK FOR TYPE 2 DIABETES MELLITUS SUBCUT ANEOUS ACTIVE 08/27/2025 [id number] WILIAM CORBIN 2023 3 [place] SEMAGLUTIDE 0.25MG/0.37 5ML INJ,SOLNPE N,3ML INJECT 0.5MG SUBCUTAN EOUSLY ONCE A WEEK FOR TYPE 2 DIABETES MELLITUS SUBCUT ANEOUS DISCONT INUED 08/02/2024 [id number] BREONNA ONOFRE SA LUNA 2022 1 IELD TAMSULOSIN HCL 0.4MG CAP TAKE ONE CAPSULE BY MOUTH ONCE DAILY FOR ENLARGED PROSTATE ORAL ACTIVE 02/06/2025 [id number] WILIAM CORBIN 2023 90 [place] Immunizations Combined list of available immunizations from the Department of Defense and Veterans Affairs facilities. Immunization Series Date Given Administered By Site Reaction Lot Number CVX Code Drug Driver License Technician Status Comments Source INFLUENZA, HIGH-DOSE, TRIVALENT, PF 2023 DARELL SANTILLAN LEFT [place] ID [id number] 135 complet ed [facility] INFLUENZA, HIGH-DOSE, QUADRIVALENT 2022 [place] RIGHT [place] ID [id number] 197 complet ed [facility] INFLUENZA VACCINE, QUADRIVALENT, ADJUVANTED 2021 MILADY ISBELL LEFT DELTO ID [id number] 205 complet ed [facility] IELD INFLUENZA VACCINE, QUADRIVALENT, ADJUVANTED 2020 205 complet ed [facility] IELD COVID-19 (MODERNA), MRNA, LNP-S, PF, 100 MCG OR 50 MCG DOSE 3 2020 207 complet ed MOD; [id number]; 2 [place] ZOSTER RECOMBINANT 2 2020 187 complet ed [facility] IELD COVID-19 (PFIZER), MRNA, LNP-S, PF, 30 MCG/0.3 ML DOSE 2 2020 208 complet ed [facility] COVID-19 (PFIZER), MRNA, LNP-S, PF, 30 MCG/0.3 ML DOSE 1 2020 208 complet ed [facility] INFLUENZA, INJECTABLE, QUADRIVALENT, PRESERVATIVE FREE 2019 150 complet ed [place] ZOSTER RECOMBINANT 1 2019 187 complet ed [place] INFLUENZA, INJECTABLE, QUADRIVALENT 2017 158 complet ed Site: Left Deltoid [place] INFLUENZA, SEASONAL, INJECTABLE 2016 141 complet ed Site: Left Deltoid [place] DTAP 2015 20 complet ed Site: Right Deltoid [place] DTAP, UNSPECIFIED FORMULATION 2015 107 complet ed [place] FLU,3 YRS (HISTORICAL) 2015 88 complet ed Site: Right Deltoid [place] FLU,3 YRS (HISTORICAL) 2014 88 complet ed PCP [facility] PNEUMOCOCCAL CONJUGATE PCV 13 2014 133 complet ed YES [facility] PNEUMOCOCCAL POLYSACCHARID E PPV23 2013 33 complet ed Per outside records [facility] PNEUMOCOCCAL CONJUGATE PCV 13 2013 133 complet ed note from [facility] ZOSTER (HISTORICAL) 2011 121 complet ed DOCUMENTE D [facility] DTAP, UNSPECIFIED FORMULATION 2005 107 complet ed [facility] PNEUMOCOCCAL POLYSACCHARID E PPV23 2005 33 complet ed Per outside records [facility] TD(ADULT) UNSPECIFIED FORMULATION 2005 139 complet ed EXACT MONTH AND DATE IS UNKNOWN [facility] Results Combined list of recent chemistry, hematology and other laboratory results from Department of Defense and Veterans Affairs, ranging from 15 months to all on record, depending upon the facility. Order Name Results Value Reference Range Date Interpretation Specimen Comments Source HEMOGLOB IN A1C PANEL HEMOGLOBIN A1C/HEMOGL OBIN.TOTAL IN BLOOD BY HPLC 6.7 4.0 - 5.6 09/19 H Specimen Type: BLOOD Comment: Values obtained from A1C measurement s can vary. For atypical A1C assays, a reported value of 7.0 could actually be between 6.72 and 7.28 if measured by a reference method. A reported value of 9.0 could actually be between 8.73 and 9.27. Ref: http://www. [facility].org/[place] Pdata.asp Ordering Provider: MARYLOU GO Report Released Date/Time: Sep 19, 2024 12:20 PM Reporting Lab: [address] [address] Performing Lab: [address] [address] [facility] BASIC METABOLI C PANEL (non-fas ting) UREA NITROGEN [MASS/VOLU ME] IN SERUM OR PLASMA 22 mg/dL 7 - 25 09/19 Specimen Type: SERUM Comment: Hemolysis present may falsly elevate Potassium Total and Direct Bili, Iron, AST, %Fe. Ordering Provider: MARYLOU GO Report Released Date/Time: Sep 19, 2024 12:20 PM Reporting Lab: [address] [address] Performing Lab: [address] [address] [facility] BASIC METABOLI C PANEL (non-fas ting) GLUCOSE [MASS/VOLU ME] IN SERUM OR PLASMA 100 mg/dL 65 - 100 09/19 Specimen Type: SERUM Comment: Hemolysis present may falsly elevate Potassium Total and Direct Bili, Iron, AST, %Fe. Ordering Provider: MARYLOU GO Report Released Date/Time: Sep 19, 2024 12:20 PM Reporting Lab: [address] [address] Performing Lab: [address] [address] [facility] BASIC METABOLI C PANEL (non-fas ting) SODIUM [MOLES/VOL UME] IN SERUM OR PLASMA 138 mmol/L 135 - 145 09/19 Specimen Type: SERUM Comment: Hemolysis present may falsly elevate Potassium Total and Direct Bili, Iron, AST, %Fe. Ordering Provider: MARYLOU GO Report Released Date/Time: Sep 19, 2024 12:20 PM Reporting Lab: [address] [address] [facility]: [facility] [address] [address] [facility] BASIC METABOLI C PANEL (non-fas ting) POTASSIUM [MOLES/VOL UME] IN SERUM OR PLASMA 4.8 mmol/L 3.5 - 5.0 09/19 Specimen Type: SERUM Comment: Hemolysis present may falsly elevate Potassium Total and Direct Bili, Iron, AST, %Fe. Ordering Provider: MARYLOU GO Report Released Date/Time: Sep 19, 2024 12:20 PM Reporting Lab: [address] [address] Performing Lab: [address] [address] [facility] BASIC METABOLI C PANEL (non-fas ting) CHLORIDE [MOLES/VOL UME] IN SERUM OR PLASMA 105 mmol/L 100 - 110 09/19 Specimen Type: SERUM Comment: Hemolysis present may falsly elevate Potassium Total and Direct Bili, Iron, AST, %Fe. Ordering Provider: MARYLOU GO Report Released Date/Time: Sep 19, 2024 12:20 PM Reporting Lab: [address] [address] Performing [facility]: [facility] [address] [facility] BASIC METABOLI C PANEL (non-fas ting) CARBON DIOXIDE, TOTAL [MOLES/VOL UME] IN SERUM OR PLASMA 25 meq/L 20 - 30 09/19 Specimen Type: SERUM Comment: Hemolysis present may falsly elevate Potassium Total and Direct Bili, Iron, AST, %Fe. Ordering Provider: MARYLOU GO Report Released Date/Time: Sep 19, 2024 12:20 PM Reporting Lab: [facility] [address] [address] [facility] [address] [address] [facility] BASIC METABOLI C PANEL (non-fas ting) CREATININE [MASS/VOLU ME] IN SERUM OR PLASMA 1.57 mg/dL 0.50 - 1.40 09/19 H Specimen Type: SERUM Comment: Hemolysis present may falsly elevate Potassium Total and Direct Bili, Iron, AST, %Fe. Ordering Provider: MARYLOU GO Report Released Date/Time: Sep 19, 2024 12:20 PM Reporting Lab: [address] [address] Performing Lab: [address] [address] [facility] BASIC METABOLI C PANEL (non-fas ting) GLOMERULAR FILTRATION RATE/1.73 SQ M.PREDICTE D [VOLUME RATE/AREA] IN SERUM, PLASMA OR BLOOD BY CREATININE -BASED FORMULA (CKD-EPI 2020) 44 mL/min 60 09/19 L Specimen Type: SERUM Comment: Hemolysis present may falsly elevate Potassium Total and Direct Bili, Iron, AST, %Fe. Ordering Provider: MARYLOU GO Report Released Date/Time: Sep 19, 2024 12:20 PM Reporting Lab: [address] [address] Performing Lab: [address] [address] [facility] H PYLORI ANTIBODY HELICOBACT ER PYLORI IGG AB [PRESENCE] IN SERUM NEGATIVE 06/20 Specimen Type: SERUM No comment entered. Ordering Provider: PILAR KAHN Report Released Date/Time: Feb 12, 2024 06:47 PM Reporting Lab: [address] [address] Performing Lab: [facility] [address] [facility] [address] [place] HEMOGLOB IN A1C PANEL HEMOGLOBIN A1C/HEMOGL OBIN.TOTAL IN BLOOD BY HPLC 6.6 4.0 - 5.6 06/20 H Specimen Type: BLOOD Comment: Values obtained from A1C measurement s can vary. For atypical A1C assays, a reported value of 7.0 could actually be between 6.72 and 7.28 if measured by a reference method. A reported value of 9.0 could actually be between 8.73 and 9.27. Ref: http://www. [facility].org/[place] Pdata.asp Ordering Provider: PILAR KAHN Report Released Date/Time: Feb 12, 2024 06:48 PM Reporting Lab: [address] [address] Performing Lab: [address] [address] [place] MICROALB UMIN CREATINI NE RATIO PANEL MICROALBUM IN/CREATIN INE [MASS RATIO] IN URINE 17.5 mg/g 0 - 29.9 06/20 Specimen Type: URINE No comment entered. Ordering Provider: PILAR KAHN Report Released Date/Time: Feb 12, 2024 06:48 PM Reporting Lab: [address] [address] Performing Lab: [facility] [address] [facility] [address] [place] MICROALB UMIN CREATINI NE RATIO PANEL MICROALBUM IN [MASS/VOLU ME] IN URINE 1.7 mg/dL 06/20 Specimen Type: URINE No comment entered. Ordering Provider: PILAR KAHN Report Released Date/Time: Feb 12, 2024 06:48 PM Reporting Lab: [facility] [address] [facility] [address] Performing Lab: [address] [address] [place] MICROALB UMIN CREATINI NE RATIO PANEL CREATININE [MASS/VOLU ME] IN URINE 97.12 mg/dL 06/20 Specimen Type: URINE No comment entered. Ordering Provider: PILAR KAHN Report Released Date/Time: Feb 12, 2024 06:48 PM Reporting Lab: [facility] [address] [facility] [address] Performing [facility]: [facility] [address] [address] [place] BASIC METABOLI C PANEL (fasting ) UREA NITROGEN [MASS/VOLU ME] IN SERUM OR PLASMA 24 mg/dL 7 - 25 06/20 Specimen Type: SERUM No comment entered. Ordering Provider: PILAR KAHN Report Released Date/Time: Feb 12, 2024 06:48 PM Reporting Lab: [address] [address] Performing Lab: [facility] [address] [address] [place] BASIC METABOLI C PANEL (fasting ) GLUCOSE [MASS/VOLU ME] IN SERUM OR PLASMA 126 mg/dL 65 - 100 06/20 H Specimen Type: SERUM No comment entered. Ordering Provider: PILAR KAHN Report Released Date/Time: Feb 12, 2024 06:48 PM Reporting Lab: [facility] [address] [address] Performing Lab: [facility] [address] [address] [place] BASIC METABOLI C PANEL (fasting ) SODIUM [MOLES/VOL UME] IN SERUM OR PLASMA 138 mmol/L 135 - 145 06/20 Specimen Type: SERUM No comment entered. Ordering Provider: PILAR KAHN Report Released Date/Time: Feb 12, 2024 06:48 PM Reporting Lab: [address] [address] Performing Lab: [facility] [address] [facility] [address] [place] BASIC METABOLI C PANEL (fasting ) POTASSIUM [MOLES/VOL UME] IN SERUM OR PLASMA 4.2 mmol/L 3.5 - 5.0 06/20 Specimen Type: SERUM No comment entered. Ordering Provider: PILAR KAHN Report Released Date/Time: Feb 12, 2024 06:48 PM Reporting Lab: [facility] [address] [facility] [address] Performing [facility]: [facility] [address] [facility] [address] [place] BASIC METABOLI C PANEL (fasting ) CHLORIDE [MOLES/VOL UME] IN SERUM OR PLASMA 107 mmol/L 100 - 110 06/20 Specimen Type: SERUM No comment entered. Ordering Provider: PILAR KAHN Report Released Date/Time: Feb 12, 2024 06:48 PM Reporting Lab: [facility] [address] [address] Performing [facility]: [facility] [address] [address] [place] BASIC METABOLI C PANEL (fasting ) CARBON DIOXIDE, TOTAL [MOLES/VOL UME] IN SERUM OR PLASMA 21 meq/L 20 - 30 06/20 Specimen Type: SERUM No comment entered. Ordering Provider: PILAR KAHN Report Released Date/Time: Feb 12, 2024 06:48 PM Reporting Lab: [facility] [address] [facility] [address] Performing Lab: [facility] [address] [place] BASIC METABOLI C PANEL (fasting ) CREATININE [MASS/VOLU ME] IN SERUM OR PLASMA 1.62 mg/dL 0.50 - 1.40 06/20 H Specimen Type: SERUM No comment entered. Ordering Provider: PILAR KAHN Report Released Date/Time: Feb 12, 2024 06:48 PM Reporting Lab: [facility] [address] [facility] [address] Performing Lab: [facility]N [facility]ETS [facility] [address] [facility] [address] [place] BASIC METABOLI C PANEL (fasting ) GLOMERULAR FILTRATION RATE/1.73 SQ M.PREDICTE D [VOLUME RATE/AREA] IN SERUM, PLASMA OR BLOOD BY CREATININE -BASED FORMULA (CKD-EPI 2020) 43 mL/min 60 06/20 L Specimen Type: SERUM No comment entered. Ordering Provider: PILAR KAHN Report Released Date/Time: Feb 12, 2024 06:48 PM Reporting Lab: [facility] [address] [facility] [address] Performing Lab: [facility] [address] [address] [place] MICROALB UMIN CREATINI NE RATIO PANEL MICROALBUM IN/CREATIN INE [MASS RATIO] IN URINE 7.3 mg/g 0 - 29.9 11/22 Specimen Type: URINE No comment entered. Ordering Provider: TERESA BENNETT Report Released Date/Time: Nov 22, 2023 09:32 AM Reporting Lab: [facility] [address] [facility] [address] Performing Lab: [facility] [address] [address] [place] MICROALB UMIN CREATINI NE RATIO PANEL MICROALBUM IN [MASS/VOLU ME] IN URINE 0.9 mg/dL 11/22 Specimen Type: URINE No comment entered. Ordering Provider: TERESA BENNETT A Report Released Date/Time: Nov 22, 2023 09:32 AM Reporting Lab: [facility] [address] [facility] [address] Performing Lab: [facility]ENTERUSE[address] [address] [place] MICROALB UMIN CREATINI NE RATIO PANEL CREATININE [MASS/VOLU ME] IN URINE 122.60 mg/dL 11/22 Specimen Type: URINE No comment entered. Ordering Provider: TERESA BENNETT A Report Released Date/Time: Nov 22, 2023 09:32 AM Reporting Lab: [facility] [address] [facility] [address] Performing [facility]: [facility] [address] [address] [place] CALCIUM CALCIUM [MASS/VOLU ME] IN SERUM OR PLASMA 8.7 mg/dL 8.5 - 10.2 11/22 Specimen Type: SERUM No comment entered. Ordering Provider: TERESA BENNETT A Report Released Date/Time: Nov 22, 2023 09:32 AM Reporting Lab: [facility] [address] [address] Performing Lab: [address] [address] [place] URINALYS IS COLOR OF URINE Light-Ye llow 11/22 Specimen Type: URINE Comment: If Glucose = >500 and Ketones are positive, please alert the Physician. Ordering Provider: TERESA BENNETT A Report Released Date/Time: Nov 22, 2023 09:32 AM Reporting Lab: [facility] [address] [address] Performing Lab: [address] [address] [place] URINALYS IS APPEARANCE OF URINE Clear 11/22 Specimen Type: URINE Comment: If Glucose = >500 and Ketones are positive, please alert the Physician. Ordering Provider: TERESA BENNETT A Report Released Date/Time: Nov 22, 2023 09:32 AM Reporting Lab: [facility] [address] [address] Performing Lab: [facility] [address] [address] [place] URINALYS IS GLUCOSE [MASS/VOLU ME] IN URINE >1000mg/ dL 11/22 Specimen Type: URINE Comment: If Glucose = >500 and Ketones are positive, please alert the Physician. Ordering Provider: TERESA BENNETT A Report Released Date/Time: Nov 22, 2023 09:32 AM Reporting Lab: [facility] [place] [facility] [address] [facility] [address] Performing Lab: [facility] [place] [facility] [address] [facility] [address] [place] URINALYS IS KETONES [MASS/VOLU ME] IN URINE BY TEST STRIP NEGATIVE mg/dL 11/22 Specimen Type: URINE Comment: If Glucose = >500 and Ketones are positive, please alert the Physician. Ordering Provider: TERESA BENNETT A Report Released Date/Time: Nov 22, 2023 09:32 AM Reporting Lab: [facility]TR[facility]ENTERUSETS [address] [address] Performing Lab: [facility] [place] [facility] [address] [facility] [address] [place] URINALYS IS ERYTHROCYT ES [PRESENCE] IN URINE SEDIMENT BY LIGHT MICROSCOPY NEGATIVE mg/dL 11/22 Specimen Type: URINE Comment: If Glucose = >500 and Ketones are positive, please alert the Physician. Ordering Provider: TERESA BENNETT A Report Released Date/Time: Nov 22, 2023 09:32 AM Reporting Lab: [facility] [address] [facility] [address] Performing Lab: [place] [facility] [place] [facility] [address] [facility] [address] [place] URINALYS IS PROTEIN [MASS/VOLU ME] IN URINE BY TEST STRIP NEGATIVE mg/dL 11/22 Specimen Type: URINE Comment: If Glucose = >500 and Ketones are positive, please alert the Physician. Ordering Provider: TERESA BENNETT A Report Released Date/Time: Nov 22, 2023 09:32 AM Reporting Lab: [facility] [place] [facility] [address] [facility] [address] Performing Lab: [facility] [place] [facility] [address] [facility] [address] [place] URINALYS IS NITRITE [PRESENCE] IN URINE NEGATIVE mg/dL 11/22 Specimen Type: URINE Comment: If Glucose = >500 and Ketones are positive, please alert the Physician. Ordering Provider: TERESA BENNETT A Report Released Date/Time: Nov 22, 2023 09:32 AM Reporting Lab: [address] [address] Performing Lab: [address] [address] [place] URINALYS IS BILIRUBIN. TOTAL [PRESENCE] IN URINE NEGATIVE mg/dL 11/22 Specimen Type: URINE Comment: If Glucose = >500 and Ketones are positive, please alert the Physician. Ordering Provider: TERESA BENNETT A Report Released Date/Time: Nov 22, 2023 09:32 AM Reporting Lab: [address] [address] Performing Lab: [address] [address] [place] URINALYS IS SPECIFIC GRAVITY OF URINE BY REFRACTOME TRY 1.027 1.016 - 1.022 11/22 H Specimen Type: URINE Comment: If Glucose = >500 and Ketones are positive, please alert the Physician. Ordering Provider: TERESA BENNETT A Report Released Date/Time: Nov 22, 2023 09:32 AM Reporting Lab: [facility] [address] Performing Lab: [address] [address] [place] URINALYS IS PH OF URINE BY TEST STRIP 5.5 5.0 - 9.0 11/22 Specimen Type: URINE Comment: If Glucose = >500 and Ketones are positive, please alert the Physician. Ordering Provider: TERESA BENNETT A Report Released Date/Time: Nov 22, 2023 09:32 AM Reporting Lab: [address] [address] Performing Lab: [facility] [address] [facility] [address] [place] URINALYS IS UROBILINOG EN [MASS/VOLU ME] IN URINE BY TEST STRIP <2.0mg/d L <2.0 - 2.0 11/22 Specimen Type: URINE Comment: If Glucose = >500 and Ketones are positive, please alert the Physician. Ordering Provider: TERESA BENNETT A Report Released Date/Time: Nov 22, 2023 09:32 AM Reporting Lab: [address] [address] Performing Lab: [address] [address] [place] URINALYS IS LEUKOCYTE ESTERASE [PRESENCE] IN URINE BY TEST STRIP NEGATIVE 11/22 Specimen Type: URINE Comment: If Glucose = >500 and Ketones are positive, please alert the Physician. Ordering Provider: TERESA BENNETT A Report Released Date/Time: Nov 22, 2023 09:32 AM Reporting Lab: [address] [address] Performing Lab: [address] [address] [place] BASIC METABOLI C PANEL (non-fas ting) UREA NITROGEN [MASS/VOLU ME] IN SERUM OR PLASMA 21 mg/dL 7 - 25 11/22 Specimen Type: SERUM No comment entered. Ordering Provider: TERESA BENNETT A Report Released Date/Time: Nov 22, 2023 09:32 AM Reporting Lab: [address] [address] Performing Lab: [address] [address] [place] BASIC METABOLI C PANEL (non-fas ting) GLUCOSE [MASS/VOLU ME] IN SERUM OR PLASMA 97 mg/dL 65 - 100 11/22 Specimen Type: SERUM No comment entered. Ordering Provider: TERESA BENNETT A Report Released Date/Time: Nov 22, 2023 09:32 AM Reporting Lab: [facility] [address] [facility] [address] Performing Lab: [facility] [address] [facility] [address] [place] BASIC METABOLI C PANEL (non-fas ting) SODIUM [MOLES/VOL UME] IN SERUM OR PLASMA 138 mmol/L 135 - 145 11/22 Specimen Type: SERUM No comment entered. Ordering Provider: TERESA BENNETT A Report Released Date/Time: Nov 22, 2023 09:32 AM Reporting Lab: [facility] [address] [facility] [address] Performing Lab: [facility] [address] [facility] [address] [place] BASIC METABOLI C PANEL (non-fas ting) POTASSIUM [MOLES/VOL UME] IN SERUM OR PLASMA 4.1 mmol/L 3.5 - 5.0 11/22 Specimen Type: SERUM No comment entered. Ordering Provider: TERESA BENNETT A Report Released Date/Time: Nov 22, 2023 09:32 AM Reporting Lab: [facility] [address] [facility] [address] Performing Lab: [facility] [address] [facility] [address] [place] BASIC METABOLI C PANEL (non-fas ting) CHLORIDE [MOLES/VOL UME] IN SERUM OR PLASMA 106 mmol/L 100 - 110 11/22 Specimen Type: SERUM No comment entered. Ordering Provider: TERESA BENNETT A Report Released Date/Time: Nov 22, 2023 09:32 AM Reporting Lab: [facility] [address] [facility] [address] Performing Lab: [facility]ITAL[facility] [address] [facility] [address] [place] BASIC METABOLI C PANEL (non-fas ting) CARBON DIOXIDE, TOTAL [MOLES/VOL UME] IN SERUM OR PLASMA 22 meq/L 20 - 30 11/22 Specimen Type: SERUM No comment entered. Ordering Provider: TERESA BENNETT A Report Released Date/Time: Nov 22, 2023 09:32 AM Reporting Lab: [facility] [address] [facility] [address] Performing Lab: [facility] [address] [facility] [address] [employer] BASIC METABOLI C PANEL (non-fas ting) CREATININE [MASS/VOLU ME] IN SERUM OR PLASMA 1.47 mg/dL 0.50 - 1.40 11/22 H Specimen Type: SERUM No comment entered. Ordering Provider: TERESA BENNETT A Report Released Date/Time: Nov 22, 2023 09:32 AM Reporting Lab: [facility] [address] [facility] [address] Performing Lab: [address] [address] [employer] BASIC METABOLI C PANEL (non-fas ting) GLOMERULAR FILTRATION RATE/1.73 SQ M.PREDICTE D [VOLUME RATE/AREA] IN SERUM, PLASMA OR BLOOD BY CREATININE -BASED FORMULA (CKD-EPI 2020) 48 mL/min 60 11/22 L Specimen Type: SERUM No comment entered. Ordering Provider: TERESA BENNETT A Report Released Date/Time: Nov 22, 2023 09:32 AM Reporting Lab: [address] [address] Performing Lab: [address] [address] [employer] Vital Signs Combined list of inpatient and outpatient Vital Signs from Department of Defense and Veterans Affairs, ranging from 12 months to all on record, depending upon the facility. Vital Sign Value Date Comments Source SYSTOLIC BLOOD PRESSURE 160 08/22/2024 09:54:09 [facility] DIASTOLIC BLOOD PRESSURE 77 08/22/2024 09:54:09 [facility] PULSE OXIMETRY 98 08/22/2024 09:54:09 [facility] 262 08/22/2024 09:54:09 [place] [facility] PAIN 1 08/22/2024 09:54:09 [facility] TEMPERATURE 96.2 08/22/2024 09:54:09 [facility] PULSE 86 08/22/2024 09:54:09 [place] [facility] SYSTOLIC BLOOD PRESSURE 127 07/05/2024 11:45:35 [place] DIASTOLIC BLOOD PRESSURE 65 07/05/2024 11:45:35 [place] PULSE OXIMETRY 96 07/05/2024 11:45:35 [place] WEIGHT 262.4 07/05/2024 11:45:35 [place] BMI 34 kg/m2 07/05/2024 11:45:35 [place] TEMPERATURE 97.6 07/05/2024 11:45:35 [place] PULSE 74 07/05/2024 11:45:[address] [facility] SYSTOLIC BLOOD PRESSURE 129 02/06/2024 14:32:56 [place] DIASTOLIC BLOOD PRESSURE 61 02/06/2024 14:32:56 [place] PULSE OXIMETRY 99 02/06/2024 14:32:56 [place] WEIGHT 255.8 02/06/2024 14:32:56 [place] BMI 33 kg/m2 02/06/2024 14:32:56 [place] TEMPERATURE 97.8 02/06/2024 14:32:56 [place] PULSE 60 02/06/2024 14:32:56 [place] Encounters Combined list of: 1) Encounters from Department of Veterans Affairs facilities going backup to the last 18 months, not all [place] inpatient encounters are included; 2) Encounters from the Department of Defense facilities going backup to 280 months. Location Location Details Encounter Type Encounter Number Reason For Visit Attending Provider ADM Date DC Date Status Disposition Source [facility] [place] [facility] Outpatient Encounter [id number] Diagnos is: ICD-10- CM Z02.89 Encount er for other adminis trative examina tiSELENE Stuart 05/16 [place] [facility] [place] [facility] OFFICE O/P EST LOW 20-29 MIN [id number] Diagnos is: ICD-10- CM L60.0 Ingrowi ng JOON Javier F 05/25 [place] [facility] En[facility] [id number] 06/05 [facility] En[facility] [id number] 07/06 [facility] [place] PRO PHONE CALL 5-10 MIN [id number] Diagnos is: ICD-10- CM E11.9 Type 2 diabete s mellitu s without complic ations JOHN COVINGTON J 07/08 [facility] [place] OFFICE O/P EST LOW 20-29 MIN [id number] Diagnos is: ICD-10- CM L60.0 Ingrowi JOON Bunch 07/20 [place] [facility] [id number] 07/20 [facility] En[facility] [id number] 07/20 [facility] En[facility] [id number] 07/20 [facility] En[facility] [id number] 08/01 [facility] [place] ADMIN [id number] [place] 08/02 [facility] [place] OFF[place] O/P EST LOW 20-29 MIN [id number] Diagnos is: ICD-10- CM I10 Essenti al (primar y) hyperte nsCHAVO Soto 08/11 [place] [facility] En[facility] [id number] 09/01 [facility] En[facility] [id number] 09/15 [facility] [place] OFF[place] O/P EST LOW 20 MIN [id number] Diagnos is: ICD-10- CM L60.0 Ingrowi JOON Bunch F 09/28 [place] [facility] Out[facility] Encounter [id number] Diagnos is: ICD-10- CM E11.42 Type 2 diabete s mellitu s with diabeti c polyneu ropathy HARDEEP VILLAR IEL Y 09/28 [facility] [place] HEARING AID REPAIR/MOD IFYING [id number] Diagnos is: ICD-10- CM Z46.1 Encount er for fitting and adjustm ent of hearing aid EFRAIN STEPHENSON 09/30 [place] [facility] Out[facility] Encounter [id number] 10/04 [facility] En[facility] [id number] 10/27 [facility] [place] OFF/OP EST MAY X REQ PHY/QHP [id number] Diagnos is: ICD-10- CM E11.42 Type 2 diabete s mellitu s with diabeti c polyneu ropathy BEN BENNETTD A 11/21 [place] OFF[place] O/P EST MOD 30 MIN [id number] Diagnos is: ICD-10- CM L60.0 Ingrowi ng JOON Javier ES F 11/22 [place] [facility] En[facility] [id number] 11/27 [facility] En[facility] [id number] 12/04 [facility] En[facility] [id number] 12/05 [facility] En[facility] [id number] 12/07 [facility] [place] Outpatient Encounter [id number] 12/19 [place] [facility] Out[facility] Encounter [id number] 12/21 [facility] [place] OFFICE O/P EST LOW 20 MIN [id number] Diagnos is: ICD-10- CM L60.0 Ingrowi ng JOON Javier ES F 01/17 [place] [facility] En[facility] [id number] 01/22 [facility] En[facility] [id number] 02/05 [facility] [place] OFFICE O/P EST HI 40 MIN [id number] Diagnos is: ICD-10- CM I10 Essenti al (primar y) hyperte nsion EBENEZER RANDALL 02/05 [place] [facility] En[facility] [id number] 03/05 [facility] En[facility] [id number] 03/15 [facility] [place] OFF[place] O/P EST LOW 20 MIN [id number] Diagnos is: ICD-10- CM L60.0 Ingrowi ng JOON Javier ES F 03/21 [place] [facility] Encounter [id number] 1.05/03 [facility] En[facility] [id number] 1.05/08 [facility] [place] [facility] [place] OFFICE O/P EST LOW 20 MIN [id number] Diagnos is: ICD-10- CM L60.0 Ingrowi ng JOON Javier ES F 05/23 [facility] ADDL 15 MIN [id number] Diagnos is: ICD-10- CM E11.9 Type 2 diabete s mellitu s without complic ations BHAVIN GO 06/28 [facility]ELD [facility] QNHP OL DIG ASSMT&MGMT 5-10 [id number] Diagnos is: ICD-10- CM E11.9 Type 2 diabete s mellitu s without complic ations JOHN COVINGTON 07/03 [facility] Encounter [id number] 1.07/05 [facility] [place] ADMIN [id number] 1. EBENEZER RANDALL 07/05 [facility] [place] [facility] OFFICE O/P EST MOD 30 MIN [id number] Diagnos is: ICD-10- CM K21.9 Gastro- esophag eal reflux disease without esophag itis EBENEZER RANDALL 07/05 [place] [facility] OFFICE O/P EST LOW 20 MIN [id number] Diagnos is: ICD-10- CM L60.0 JOON Howe 07/18 [place] [facility] Outpatient Encounter [id number] 1.07/20 [facility] [place] [facility] [place] [facility] Outpatient Encounter [id number] 08/22 [facility] [place] [facility] OFF[facility] O/P NEW MOD 45 MIN [id number] Diagnos is: ICD-10- CM K21.9 Gastro- esophag eal reflux disease without esophag itis Dejan ALLISON [facility] 08/22 [place] [facility] Out[facility] Encounter [id number] 08/25 [facility] [place] [facility] Out[facility] Encounter [id number] 09/10 [facility] [place] [facility] MTMS BY PHARM ADDL 15 MIN [id number] Diagnos is: ICD-10- CM E11.9 Type 2 diabete s mellitu s without complic ations BHAVIN GO 09/19 [place] [facility] Outpatient Encounter [id number] 10/04 [facility] [place] [facility] [place] [facility] Outpatient Encounter [id number] 10/10 [facility] [place] [facility] [place] [facility] Outpatient Encounter [id number] 10/17 [place] [facility] [place] [facility] [place] OFFICE O/P EST MOD 30 MIN [id number] Diagnos is: ICD-10- CM L60.0 Ingrowi JOON Bunch F 10/26 [facility] MTMS BY PHARM ADDL 15 MIN [id number] Diagnos is: ICD-10- CM E11.9 Type 2 diabete s mellitu s without complic ations BHAVIN GO 10/31 [facility] [place] [facility] [place] [facility] Outpatient Encounter [id number] [facility] Social History Combined list of available smoking, tobacco, and other social history from Department of Defense and Veterans Affairs facilities. 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 Additional future care activities may be listed in the Assessment and Plan section. Date/Time Care Activity Care Activity Detail Facili ty 11/09/2024 AMBULATORY - MEDICINE AMBULATORY - MEDICI [facility] 11/21/2024 AMBULATORY - MEDICINE AM[facility]ULATORY - MEDICI [facility] 12/12/2024 AMBULATORY - MEDICINE AMBULATORY - MEDICI [facility] 01/22/2025 AMBULATORY - MEDICINE AMBULATORY - MEDICI [facility] 02/05/2025 AMBULATORY - MEDICINE AMBULATORY - MEDICI [facility] 04/02/2025 AMBULATORY - MEDICINE AMBULATORY - MEDICI [facility] 10/10/2024 Consult Order [facility]-Delia SANCHEZ 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 An actual copy of the Directive is not included. Date Advance Directive Provider Source 09/26/2015 ADVANCE DIRECTIVE SRINIVAS ANDERSON [place]
--- OUTSIDE RECORDS SUMMARY | 2024-11-07 14:22 | XMS_ITS | Encounter Summary ---
Author Name [facility] [place] [facility] [place] Address [address] [place] [id number] Care Team Providers Care Order Processing Specialist Name Role Phone WILIAM BERMAN Primary [...] Flood's Name Patient's Relationship to Policy Flood [facility] (WNR) MEDICARE ADVANTAGE [facility] (WNR) Sep 05, 2012 [facility]AM[facility] [id number] PATIENT [facility] (WNR) MEDICARE ADVANTAGE [facility] (WNR) Sep 05, 2012 [id number] PATIENT Selected Encounter This section includes the information on record at [place] for the Encounter. Date/Time Encounter Type Encounter Description Reason Pro vider Source IHE Encounter Template Text not used by [facility] Advance Directives: All historical and current Section Date Range: From patient's date of to the date document was created. This section includes ALL of a patient's completed or amended [facility] Advance and Rescinded Directives. The entries below indicate that a directive exists for the patient, but an actual copy is not included with this document. The data comes from all [place] facilities. Date Advance Directives Provider Source Sep 26, 2015 ADVANCE DIRECTIVE SRINIVAS [place]ERSON[place]
--- OUTSIDE RECORDS SUMMARY | 2024-11-07 14:23 | XMS_ITS | Encounter Summary ---
Author Name [facility] Organization [facility] [place] Address [address] [place] [id number] Care Team Providers Care Contestant Coordinator Name Role Phone WILIAM BERMAN Primary Care [...] Flood's Name Patient's Relationship to Policy Flood [facility] HEALTH PLAN [facility] ([facility]) MEDICARE ADVANTAGE [facility] ([facility]) Sep 05, 2012 HAM [id number] PATIENT [facility] (WNR) MEDICARE ADVANTAGE [facility] (R) Sep 05, 2012 [id number] PATIENT Selected Encounter This section includes the information on record at [place] for the Encounter. Date/Time Encounter Type Encounter Description Reason Provider Source Jul 05, 2024 11:30 AM OFFICE O/P EST MOD 30 MIN PRIMARY CARE/MEDICINE ICD-10-CM K21.9 Gastro-esophageal reflux disease without esophagitis WILIAM EPPS Lor Encounter Template Text not used by [place] Assessments - Encounter Diagnoses This section includes the primary and secondary diagnoses documented for the Encounter. Date/Time Primary/Secondary Diagnosis Diagnosis Name Provider Source Jul 05, 2024 02:30 PM PRIMARY Gastro-esophageal reflux disease without esophagitis WILIAM EPPS LEEPER Jul 05, 2024 02:30 PM SECONDARY Chronic kidney disease, stage 3 unspecified ELENAToniJENNIFER LYSSAWILIAM Holman LEEPER Jul 05, 2024 02:30 PM SECONDARY Essential (primary) hypertension ELENAToniELANALEON OMALLEYWILIAM Holman LEEPER Jul 05, 2024 02:30 PM SECONDARY Functional dyspepsia HARLANJEANNIEYURY OMALLEYEBENEZERCheyAMANDACheyJAN Holman LEEPER Jul 05, 2024 02:30 PM SECONDARY Hyperlipidemia, unspecified HARLANANNABELDESIREE OMALLEYWILIAM Holman LEEPER Jul 05, 2024 02:30 PM SECONDARY Nicotine dependence, cigarettes, uncomplicated HARLANANNABELDESIREE OMALLEYWILIAM Holman LEEPER Jul 05, 2024 02:30 PM SECONDARY Obesity, unspecified HARLANANNABELDESIREE OMALLEYWILIAM Holman LEEPER Jul 05, 2024 02:30 PM SECONDARY Type 2 diabetes mellitus with diabetic polyneuropathy HARLANJEANNIEYURY OMALLEYEBENEZERCheyAMANDACheyJAN [place] LEEPER Jul 05, 2024 02:30 PM SECONDARY Type 2 diabetes mellitus without complications HARLANANNABELDESIREE OMALLEYWLIIAM Holman LEEPER Plan of Treatment: Future Appointments (+ 6 months) and Future Tests (+/- 45 days) The Plan of Treatment section includes future care activities for the patient from all [facility]. This section includes future appointments and future orders which are active, pending or scheduled. Future Appointments This section includes appointments that were scheduled to occur 6 months from the date of the Encounter, up to a maximum of 20 appointments. The data comes from all [place] treatment [facility]. Appointment Date/Time Appointment Type Appointme nt Facility Name Jul 18, 2024 08:00 AM AMBULATORY - MEDICINE [facility] Aug 22, 2024 10:00 AM AMBULATORY - MEDICINE [facility] [place] [facility] Sep 19, 2024 12:00 PM AMBULATORY - MEDICINE [place] [facility] Oct 17, 2024 08:00 AM AMBULATORY - MEDICINE [facility] Oct 26, 2024 08:00 AM AMBULATORY - MEDICINE [facility] Oct 31, 2024 11:30 AM AMBULATORY - MEDICINE [place] [facility] Nov 09, 2024 10:10 AM AMBULATORY - MEDICINE [place] [facility] Nov 21, 2024 11:00 AM AMBULATORY - MEDICINE [facility] Dec 12, 2024 11:00 AM AMBULATORY - MEDICINE [facility] Lab Results: +/- 30 days of the [...] Range Comment Jun 20, 2024 09:05 AM LEEPER H PYLORI ANTIBODY Specimen Type: SERUM No comment entered. Ordering Provider: WILIAM EPPS Report Released Date/Time: Feb 12, 2024 06:47 PM Reporting Lab: [facility] [address] [address] Performing Lab: [facility] [address] [facility] [address] H PYLORI IgG NEGATIVE NEGATIVE Jun 20, 2024 09:05 AM LEEPER MICROALBUMIN CREATININE RATIO PANEL Spe cimen Type: URINE No comment entered. Ordering Provider: WILIAM EPPS Report Released Date/Time: Feb 12, 2024 06:48 PM Reporting Lab: [facility] [address] [address] Performing Lab: [facility] [address] [address] MICROALBUMIN/C REATININE RATIO 17.5 mg/g 0-29.9 MICROALBUMIN,Q UANTITATIVE 1.7 mg/dL RR UNAVAIL CREATININE URINE 97.12 mg/dL Jun 20, 2024 09:05 AM LEEPER HEMOGLOBIN A1C PANEL Specimen Type: BLOOD Comment: [...] Feb 12, 2024 06:48 PM Reporting Lab: [address] [address] Performing Lab: [address] [address] HEMOGLOBIN A1C 6.6 H 4.0-5.6 Jun 20, 2024 09:05 AM LEEPER BASIC METABOLIC PANEL (fasting) Specime n Type: SERUM No comment entered. Ordering Provider: WILIAM EPPS Report Released Date/Time: Feb 12, 2024 06:48 PM Reporting Lab: [address] [address] Performing Lab: [address] [address] UREA NITROGEN 24 mg/dL 7-25 GLUCOSE 126 mg/dL H 65-100 SODIUM 138 mmol/L 135-145 POTASSIUM 4.2 mmol/L 3.5-5.0 CHLORIDE 107 mmol/L 100-110 CO2 21 meq/L 20-30 CREATININE, Serum 1.62 mg/dL H 0.50-1.40 eGFR(CKD-EPI 2020) 43 mL/min L >60 Vital Signs: All taken on the encounter date This section contains inpatient and outpatient Vital Signs collected on the date of the Encounter. Date/Time Temperature Pulse Blood Pressure Respiratory Rate SP02 Pain Height Weight Body Mass Index Source Jul 05, 2024 11:45 AM 97.6 74 127/65 96 262.4 34 [place] Social History: Smoking Status (Most current) and [...] 2023 09:00 AM VA-TOBACCO USER EVERY DAY LEEPER Tobacco Use History This section includes a history of the smoking, or tobacco-related health factors, that were collected on or before the date of the Encounter. The data comes from the [place] facility where the Encounter took place. Date/Time Smoking Status/Tobacco Use Comment [facility] Aug 11, 2023 09:00 AM VA-TOBACCO USE 30 YEARS OR MORE LEEPER Aug 11, 2023 09:00 AM VA-TOBACCO USE ADVICE LEEPER Aug 11, 2023 09:00 AM VA-TOBACCO USE FOOD EXPEDITOR NO LEEPER Aug 11, 2023 09:00 AM VA-TOBACCO USE MED NO LEEPER Aug 11, 2023 09:00 AM VA-TOBACCO USER EVERY DAY LEEPER Aug 12, 2022 09:00 AM VA-TOBACCO USE 30 YEARS OR MORE LEEPER Aug 12, 2022 09:00 AM VA-TOBACCO USE ADVICE LEEPER Aug 12, 2022 09:00 AM VA-TOBACCO USE FOOD EXPEDITOR NO LEEPER Aug 12, 2022 09:00 AM VA-TOBACCO USE MED [facility] Aug 12, 2022 09:00 AM VA-TOBACCO USE WI 30 MIN OF [facility] Aug 12, 2022 09:00 AM VA-TOBACCO USER EVERY DAY LEEPER Aug 13, 2021 09:30 AM VA-TOBACCO USE 30 YEARS OR MORE LEEPER Aug 13, 2021 09:30 AM VA-TOBACCO USE ADVICE LEEPER Aug 13, 2021 09:30 AM VA-TOBACCO USE FOOD EXPEDITOR NO [facility] 09, 2021 09:30 AM VA-TOBACCO USE MED [facility] Aug 13, 2021 09:30 AM VA-TOBACCO USE WI 30 MIN OF [facility] Aug 13, 2021 09:30 AM VA-TOBACCO USER EVERY DAY LEEPER Jun 23, 2018 09:30 AM VA-TOBACCO USE 30 YEARS OR MORE LEEPER Jun 23, 2018 09:30 AM VA-TOBACCO USE ADVICE LEEPER Jun 23, 2018 09:30 AM VA-TOBACCO USE FOOD EXPEDITOR NO LEEPER Jun 23, 2018 09:30 AM VA-TOBACCO USE MED NO LEEPER Jun 23, 2018 09:30 AM VA-TOBACCO USE WI 30 MIN OF [facility] Jun 23, 2018 09:30 AM VA-TOBACCO USER EVERY DAY LEEPER Jun 23, 2018 05:05 AM VA-TOBACCO DOESNT USE WI 30 MIN [facility] Jun 23, 2018 05:05 AM VA-TOBACCO USE 30 YEARS OR MORE LEEPER Jun 23, 2018 05:05 AM VA-TOBACCO USE ADVICE LEEPER Jun 23, 2018 05:05 AM VA-TOBACCO USE FOOD EXPEDITOR NO LEEPER Jun 23, 2018 05:05 AM VA-TOBACCO USE MED NO LEEPER Jun 23, 2018 05:05 AM VA-TOBACCO USER EVERY DAY LEEPER Jun 24, 2017 08:28 AM CURRENT SMOKER cigarettes 3/4 pack daily LEEPER Jun 24, 2017 08:28 AM V1-PT NOT INTEREST ED IN QUIT TOBACCO USE LEEPER May 21, 2016 09:13 AM V1-PT NOT INTEREST ED IN QUIT TOBACCO USE LEEPER Sep 02, 2015 03:57 PM CURRENT SMOKER HALF A PACK A DAY LEEPER Sep 02, 2015 03:57 PM V1-PT NOT INTEREST ED IN QUIT TOBACCO USE LEEPER Advance Directives: All historical and current Section [...] Sep 26, 2015 ADVANCE DIRECTIVE SRINIVAS ANDERSON LEEPER Encounter Notes: All associated encounter notes This section contains the clinical notes associated to the Encounter. Date/Time Encounter Note(s) Provider Source Jul 05, 2024 02:30 PM ADDENDUM: LOCAL TITLE: Addendum STANDARD TITLE: ADDENDUM DATE OF NOTE: JUL 05, 2024@14:30:15 ENTRY DATE: JUL 05, 2024@14:30:16 AUTHOR: Jeison BERMAN COSIGNER: URGENCY: STATUS: COMPLETED Could you please assign patient to pact 5 thanks /es/ WILIAM BERMAN MD PHYSICIAN Signed: 07/05/2024 14:30 Receipt Acknowledged By: 07/05/2024 15:48 /es/ VIRGILIO Urban [facility] Specialist --- Original Document --- 07/05/24 NOTE: 78 y/o M current smoker with PMH of obesity, HTN, HL, DM2, CKD3, GERD, BPH last/Initial 02/2024 [address] [address] [place] Dr [place]- last time seen 2022 - due to change in insurance [facility] [place] [place] Other providers: --urology Dr Hollingsworth q6m --endocrinology Dr Cesar for diabetes--> last time seen 4 months ago --pharmacy [place] --podiatry [place] --audiology [place] --non [facility] Dr Castillo Bowens last time seen a year ago --cardiology annually followed by outside Corporate Recruiter from [facility]. since last visit established with diabetes clinic at the [place] CC:GI issues Evaluated in ED 12/2023 burping, perixiphoid pain prior to ED visit pt was evaluated By NON [facility] GI Dr Castillo Bowens per patient had negative EGD and colonoscopy He was told that burping is due to excessive air swallowing No outside records available for review today few years ago pt was Rx PPI that he self discontinued because he did not find it helpful (but now he takes OTC nexium with ? improvemnt in sx) Denies any heartburn, odynophagia, dysphagia no nausea, vomiting Denies early satiety, Postprandial fullness no anemia, FHx of GI cancer,no h/o radiation, diabetes well-controlled weight stable, appetite unchanged no abdominal pain no bloating or excessive gas passing only sx is uncontrollable belching, denies carbonated beverages use, excessive NSAIDs, caffeine use tried simethicone, peptobismol, and nexium with minimal improvement in sx 2023 H PYLORI serology negative per pt his sx started before starting GLP1RA, he was holding ozempic for 2 months w/o improvement is Sx current smoker 0.5 PPD pt requests referral to see a [facility] in the [facility] for second opinion Due to severe GI symptoms patient stopped fishing and golfing, symptoms affecting his quality of life #HTN/HL compliant with medications denies CP/SOB/WILKINS/palpitations/dizzin ess /claudication denies h/o [place], CVA PAST MEDICAL HISTORY: --Obesity --HTN --Mixed HL --DM2 --First degree atrioventricular block --GERD --cholelithiasis --CKD3 --Tobacco dependence --Gout --Inguinal hernia --Cataract --Pigmented hairy epidermal nevus PAST SURGICAL HISTORY: ALLERGIES: Patient has answered NKA MEDICATIONS: Reconciled today --Non-VA ASPIRIN 81MG --Non-VA ATORVASTATIN 20MG --Non-VA FENOFIBRATE 145MG --BENAZEPRIL HCL 20MG --INSULIN,GLARGINE-75 UNITS DAILY --Non-VA PIOGLITAZONE HCL 30MG --EMPAGLIFLOZIN 25MG --SEMAGLUTIDE 0.5MG --TAMSULOSIN HCL 0.4MG --Finasteride 5mg --CHOLECALCIF 50MCG (D3-2,000UNIT) FAMILY HISTORY: --DM:sister --Cancer: no --WY: no --CVA:no SOCIAL HISTORY: 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 - [employer] 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 COMBAT SERVICE INDICATED: No --Occupation: retired --Cohabitation: , lives with his --Children: one daughter 54 y/o , lives locally --Diet: well balanced --Exercise: sedentary --Caffeine: 1c/d --EtOH: few beers a month --Tob: current smoker 0.5 PPD, h/o 50 xPPDY --MJ: denies --Illicits:denies --Sexual activity: --Eye: UTD --Dental: --Hospitalizations: #12/2023 ED [facility] - burping ROS: Constitutional: no fever/no chills, no ns Eyes: no decreased vision/blurry vision Ears/Nose/Throat: no hearing change Respiratory: no cough/wheezing/SOB Cardiovascular: no CP /palpitations Gastrointestinal: no abdominal pain/bloody/black stools :no dysuria/hematuria/trouble voiding MSK: chronic LBP + stable Neuro: no dizziness/H/A Skin: no pruritus/rash ambulates with a cane PHYSICAL EXAM: Vital Signs: Blood Pressure: 127/65 (07/05/2024 11:45) 129/61 (02/06/2024 14:32) Pulse: 74 (07/05/2024 11:45) Respiration: 16 Temperature: 97.6 F [36.4 C] (07/05/2024 11:45) Patient Weight: BMI 34 262.4 lb [119.02 kg] (07/05/2024 11:45) 255.8 lb [116.03 kg] (02/06/2024 14:32) Gen: pleasant, engaged, NAD Chest/CV: RRR Lungs: CTA B/L, no wheezing, ronchi Abdomen: BS+, Soft, NT, ND, no epigastric or right upper quadrant tenderness to palpation Extremities: wwp, no edema Ambulates with a cane LABORATORY: 06/2024 HGB A1C (WR): 6.6 H GLUCOSE: 126 H UREA NITROGEN: 24 CREATININE-EGFR: 1.62 H eGFR CKD-EPI 2020: 43 L SODIUM: 138 POTASSIUM: 4.2 CHLORIDE: 107 CO2: 21 MICROALB/CR RATIO: 17.5 MICROALBUMIN URINE: 1.7 CREATININE URINE: 97.12 H PYLORI IGG (QUAL): NEGATIVE --11/2023-- WBC: 5.90 HGB: 15.7 HCT: 46.5 MCV: 93.2 PLT: 238 CALCIUM: 8.7 PROTEIN,TOTAL: 6.6 ALBUMIN: 3.6 ALKALINE PHOSPHATASE: 43 BILIRUBIN,TOT.: 0.8 SGOT: 19 SGPT: 19 CHOLESTEROL: 162 TRIGLYCERIDE: 138 LDL CHOL: 97 HDL: 37 L CHOL/HDL RATIO: 4.4 VIT. B12 (WROX): 503 VITAMIN D TOTAL: <13 L ---> TSH (Access): 1.74 U/A negative ASSESSMENT/PLAN: 78 y/o M current smoker with PMH of obesity, HTN, HL, DM2, CKD3, GERD, BPH #Belching: Aerophagia, GERD, functional dyspepsia, ?bacterial overgrowth: -c/w OTC esomeprazole daily -trial of FD catarina -obtain non [facility] GI notes -Referral to [place] GI for second opinion #HTN: well controlled on benazapril 20mg/day #Mixed HL: on fenofibrate 145mg/day, LDL 97 #Obesity: BMI 34, patient counseled on weight loss #DM2: Dx 1998, managed by Dr Cesar and [place] CPP, well-controlled A1c 6.6 -pioglitazone 30mg/day, -empagliflozin 25mg/day, -semaglutide 0.5mg SC qwkly, -basal insulin 75units QHS Eye exam: 2022 - Dr Jamil - neg DR Podiatry exam: 01/2024 - Dr Villalpando - positive DPN Microalbuminuria: 2023- negative #Tobacco use: current 0.5 PPD smoker h/o > 50+ PPDY strongly encouraged cessation, patient not interested in quitting Today again declined screening for lung cancer #BPH: well controlled LUTS on tamsulosin 0.4mg/day and finasteride Healthcare maintenance: --Lipids: LDL 97 (11/2023) --Diabetes: A1c 6.6 (06/2024) --Colon CA (45-75): per pt had negative endoscopy 2023 at [place] --Lung CA: pt declined --PSA: PSA 1.69 (2015) f/w urology on finasteride --AAA (smoker/65): 2019 no AAA --Influenza (yrly): 2023 --COVID: 2020 x3 --PCV13: 2015 --PCV23: 2005/2013 --HZV (>60yrs, x1): 2011 --RZV (>50yrs, x2): --TDAP: 2016 --Hep C screen: --HIV screen: --DEXA: --Advanced Directives: Address at next visit: review non VA records, Return to clinic to see me in _6__ months, sooner PRN. Virtual ( ), F2F (x ) ( )non fasting labs ordered prior to f/u ( )fasting labs ordered prior to f/u ( )no labs needed ( )request labs from outside provider (x )request records from outside providers -[facility] [address] [facility] [address] [facility] [facility] --EGD/colonoscopy 2023 Dr Chong GI([facility] or [place] pt unsure) --ED visit [facility] 12/2023 Follow Up Colonoscopy: Colonoscopy is due based on information available to this reminder. A colonoscopy has been completed elsewhere and we are waiting for results. Medication Reconciliation: Outpatient: Has the patient been taking medications as documented in the EMLR? YES: The patient has been taking medications as documented in the EMLR. Essential Medication List for Review used to complete this medication reconciliation. INCLUDED IN THIS LIST: Alphabetical list of active outpatient prescriptions dispensed from this [facility] (local) and dispensed from another [place] or [facility] facility (remote) as well as inpatient orders [...] whether with a VA or non-VA provider. /marisela/ WILIAM BERMAN MD PHYSICIAN Signed: 07/05/2024 14:30 Receipt Acknowledged By: 07/05/2024 15:09 /marisela/ FABY BURCIAGA 07/05/2024 ADDENDUM STATUS: COMPLETED Records requested from the following Provider's: DR. ELOISA NAVARRETE [facility] COLONOSCOPY/EDG-[facility] ED REPORT [facility] /marisela/ FABY BURCIAGA Signed: 07/05/2024 15:08 KRIS BERMAN LEEPER Jul 05, 2024 11:30 AM PHYSICIAN NOTE: LOCAL TITLE: NOTE STANDARD TITLE: PHYSICIAN NOTE DATE OF NOTE: JUL 05, 2024@11:30 ENTRY DATE: JUL 04, 2024@22:36:12 AUTHOR: Jeison BERMAN COSIGNER: URGENCY: STATUS: COMPLETED NOTE Has ADDENDA 78 y/o M current smoker with PMH of obesity, HTN, HL, DM2, CKD3, GERD, BPH last/Initial 02/2024 PCP is non [facility] Dr Tariq Connorlow- last time seen 2022 - due to change in insurance transferring care to the [facility] PCP is [place] Other providers: --urology Dr Hollingsworth q6m --endocrinology Dr Cesar for diabetes--> last time seen 4 months ago --pharmacy [place] --podiatry [place] --audiology [place] --non [facility] Dr Castillo Bowens last time seen a year ago --cardiology annually followed by outside Corporate Recruiter from [facility]. since last visit established with diabetes clinic at the [place] CC:GI issues Evaluated in ED 12/2023 burping, perixiphoid pain prior to ED visit pt was evaluated By NON [facility] GI Dr Castillo Bowens per patient had negative EGD and colonoscopy He was told that burping is due to excessive air swallowing No outside records available for review today few years ago pt was Rx PPI that he self discontinued because he did not find it helpful (but now he takes OTC nexium with ? improvemnt in sx) Denies any heartburn, odynophagia, dysphagia no nausea, vomiting Denies early satiety, Postprandial fullness no anemia, FHx of GI cancer,no h/o radiation, diabetes well-controlled weight stable, appetite unchanged no abdominal pain no bloating or excessive gas passing only sx is uncontrollable belching, denies carbonated beverages use, excessive NSAIDs, caffeine use tried simethicone, peptobismol, and nexium with minimal improvement in sx 2023 H PYLORI serology negative per pt his sx started before starting GLP1RA, he was holding ozempic for 2 months w/o improvement is Sx current smoker 0.5 PPD pt requests referral to see a GI in the [facility] for second opinion Due to severe GI symptoms patient stopped fishing and golfing, symptoms affecting his quality of life #HTN/HL compliant with medications denies CP/SOB/WILKINS/palpitations/dizzin ess /claudication denies h/o [place], CVA PAST MEDICAL HISTORY: --Obesity --HTN --Mixed HL --DM2 --First degree atrioventricular block --GERD --cholelithiasis --CKD3 --Tobacco dependence --Gout --Inguinal hernia --Cataract --Pigmented hairy epidermal nevus PAST SURGICAL HISTORY: ALLERGIES: Patient has answered NKA MEDICATIONS: Reconciled today --Non-VA ASPIRIN 81MG --Non-VA ATORVASTATIN 20MG --Non-VA FENOFIBRATE 145MG --BENAZEPRIL HCL 20MG --INSULIN,GLARGINE-75 UNITS DAILY --Non-VA PIOGLITAZONE HCL 30MG --EMPAGLIFLOZIN 25MG --SEMAGLUTIDE 0.5MG --TAMSULOSIN HCL 0.4MG --Finasteride 5mg --CHOLECALCIF 50MCG (D3-2,000UNIT) FAMILY HISTORY: --DM:sister --Cancer: no --WY: no --CVA:no SOCIAL HISTORY: 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 - [employer] 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 COMBAT SERVICE INDICATED: No --Occupation: retired --Cohabitation: , lives with his --Children: one daughter 54 y/o , lives locally --Diet: well balanced --Exercise: sedentary --Caffeine: 1c/d --EtOH: few beers a month --Tob: current smoker 0.5 PPD, h/o 50 xPPDY --MJ: denies --Illicits:denies --Sexual activity: --Eye: UTD --Dental: --Hospitalizations: #12/2023 ED [facility] - burping ROS: Constitutional: no fever/no chills, no ns Eyes: no decreased vision/blurry vision Ears/Nose/Throat: no hearing change Respiratory: no cough/wheezing/SOB Cardiovascular: no CP /palpitations Gastrointestinal: no abdominal pain/bloody/black stools :no dysuria/hematuria/trouble voiding MSK: chronic LBP + stable Neuro: no dizziness/H/A Skin: no pruritus/rash ambulates with a cane PHYSICAL EXAM: Vital Signs: Blood Pressure: 127/65 (07/05/2024 11:45) 129/61 (02/06/2024 14:32) Pulse: 74 (07/05/2024 11:45) Respiration: 16 Temperature: 97.6 F [36.4 C] (07/05/2024 11:45) Patient Weight: BMI 34 262.4 lb [119.02 kg] (07/05/2024 11:45) 255.8 lb [116.03 kg] (02/06/2024 14:32) Gen: pleasant, engaged, NAD Chest/CV: RRR Lungs: CTA B/L, no wheezing, ronchi Abdomen: BS+, Soft, NT, ND, no epigastric or right upper quadrant tenderness to palpation Extremities: wwp, no edema Ambulates with a cane LABORATORY: 06/2024 HGB A1C (WR): 6.6 H GLUCOSE: 126 H UREA NITROGEN: 24 CREATININE-EGFR: 1.62 H eGFR CKD-EPI 2020: 43 L SODIUM: 138 POTASSIUM: 4.2 CHLORIDE: 107 CO2: 21 MICROALB/CR RATIO: 17.5 MICROALBUMIN URINE: 1.7 CREATININE URINE: 97.12 H PYLORI IGG (QUAL): NEGATIVE --11/2023-- WBC: 5.90 HGB: 15.7 HCT: 46.5 MCV: 93.2 PLT: 238 CALCIUM: 8.7 PROTEIN,TOTAL: 6.6 ALBUMIN: 3.6 ALKALINE PHOSPHATASE: 43 BILIRUBIN,TOT.: 0.8 SGOT: 19 SGPT: 19 CHOLESTEROL: 162 TRIGLYCERIDE: 138 LDL CHOL: 97 HDL: 37 L CHOL/HDL RATIO: 4.4 VIT. B12 (WROX): 503 VITAMIN D TOTAL: <13 L ---> TSH (Access): 1.74 U/A negative ASSESSMENT/PLAN: 78 y/o M current smoker with PMH of obesity, HTN, HL, DM2, CKD3, GERD, BPH #Belching: Aerophagia, GERD, functional dyspepsia, ?bacterial overgrowth: -c/w OTC esomeprazole daily -trial of FD catarina -obtain non [facility] GI notes -Referral to [place] GI for second opinion #HTN: well controlled on benazapril 20mg/day #Mixed HL: on fenofibrate 145mg/day, LDL 97 #Obesity: BMI 34, patient counseled on weight loss #DM2: Dx 1998, managed by Dr Cesar and [place] CPP, well-controlled A1c 6.6 -pioglitazone 30mg/day, -empagliflozin 25mg/day, -semaglutide 0.5mg SC qwkly, -basal insulin 75units QHS Eye exam: 2022 - Dr Jamil - neg DR Podiatry exam: 01/2024 - Dr Villalpando - positive DPN Microalbuminuria: 2023- negative #Tobacco use: current 0.5 PPD smoker h/o > 50+ PPDY strongly encouraged cessation, patient not interested in quitting Today again declined screening for lung cancer #BPH: well controlled LUTS on tamsulosin 0.4mg/day and finasteride Healthcare maintenance: --Lipids: LDL 97 (11/2023) --Diabetes: A1c 6.6 (06/2024) --Colon CA (45-75): per pt had negative endoscopy 2023 at [place] --Lung CA: pt declined --PSA: PSA 1.69 (2015) f/w urology on finasteride --AAA (smoker/65): 2019 no AAA --Influenza (yrly): 2023 --COVID: 2020 x3 --PCV13: 2015 --PCV23: --HZV (>60yrs, x1): 2011 --RZV (>50yrs, x2): --TDAP: 2015 --Hep C screen: --HIV screen: --DEXA: --Advanced Directives: Address at next visit: review non VA records, Return to clinic to see me in _6__ months, sooner PRN. Virtual ( ), F2F (x ) ( )non fasting labs ordered prior to f/u ( )fasting labs ordered prior to f/u ( )no labs needed ( )request labs from outside provider (x )request records from outside providers -cardiology [address] [facility] [address] Thurston --EGD/colonoscopy 2023 Dr Chong GI([facility] or [place] pt unsure) --ED visit [facility] 12/2023 Follow Up Colonoscopy: Colonoscopy is due based on information available to this reminder. A colonoscopy has been completed elsewhere and we are waiting for results. Medication Reconciliation: Outpatient: Has the patient been taking medications as documented in the EMLR? YES: The patient has been taking medications as documented in the EMLR. Essential Medication List for Review used to complete this medication reconciliation. INCLUDED IN THIS LIST: Alphabetical list of active outpatient prescriptions dispensed from this [place] (local) and dispensed from another [place] or [facility] facility (remote) as well as [...] whether with a VA or non-VA provider. /marisela/ WILIAM BERMAN MD PHYSICIAN Signed: 07/05/2024 14:30 Receipt Acknowledged By: 07/05/2024 15:09 /marisela/ FABY BURCIAGA 07/05/2024 ADDENDUM STATUS: COMPLETED Could you please assign patient to pact 5 thanks /marisela/ WILIAM BERMAN MD PHYSICIAN Signed: 07/05/2024 14:30 Receipt Acknowledged By: 07/05/2024 15:48 /mariesla/ VIRGILIO Urban [facility] Specialist 07/05/2024 ADDENDUM STATUS: COMPLETED Records requested from the following Provider's: DR. ELOISA NAVARRETE [facility] COLONOSCOPY/EDG[facility] ED REPORT 12/20[facility] /marisela/ FABY BURCIAGA Signed: 07/05/2024 15:08 08/18/2024 ADDENDUM STATUS: COMPLETED ED note dated 12/08/2023 received, sent to [facility]. CC: upper abdominal/epigastric pain /es/ Yee Mcmillan RN Registered Nurse Signed: 08/18/2024 09:48 KRIS BERMAN LEEPER Jun 28, 2024 08:41 AM ADMINISTRATIVE NOT E: LOCAL TITLE: ADMINISTRATIVE NOTE STANDARD TITLE: ADMINISTRATIVE NOTE DATE OF NOTE: JUN 28, 2024@08:41 ENTRY DATE: JUN 28, 2024@08:42:02 AUTHOR: FABY RODRÍGUEZ EXP COSIGNER: URGENCY: STATUS: COMPLETED [facility] [address] [place] [id number] [phone] * [phone] * [address] [place], [place] [address] Date: JUN 28, 2024 re: This is a reminder of your upcoming PCP appt with ALEYDA ONOFRE. Appointment Date: Jun@11:30 Appointment Type: In-person visit Fasting blood work NON fasting blood work CONFIRMED APPT WITH THE Sincerely, Office Staff for: ALEYDA ONOFRE Primary Care Provider [facility] [address] [place] [id number] T [phone] F [phone] Upcoming Appointments: 06/28/2024 09:30 CWM/SO/PHARM/PACT 2 07/05/2024 11:30 CWM/SO/PACT 5 07/18/2024 08:00 CWM/SO/PODIATRY/ROSS 10/17/2024 08:00 CWM/SO/PODIATRY/ROSS APPOINTMENT ABBREVIATION JUÁREZ (SPOPC OR SO = [address]) (GOPC OR GO = [address]) (NHM or NO = [facility]) (VVC - Video Call) (Tel-X Telephone Visit) (TH - Telehealth) /marisela/ FABY BURCIAGA Signed: 06/28/2024 08:42 FABY RODRÍGUEZ LEEPER
--- OUTSIDE RECORDS SUMMARY | 2024-11-07 14:23 | XMS_ITS | Encounter Summary ---
Author Name Department of Vetera ns Affairs [place]) Organization [facility] [place] Address [address] [place] [address] Care Team Providers Care Anesthetist Name Role Phone WILIAM BERMAN Primary Care [...] Flood's Name Patient's Relationship to Policy Flood [facility] (WNR) MEDICARE ADVANTAGE [facility] (R) Sep 05, 2012 HAMPD [id number] PATIENT [facility] (WNR) MEDICARE ADVANTAGE [facility] (WNR) Sep 05, 2012 [id number] PATIENT Selected Encounter This section includes the information on record at [place] for the Encounter. Date/Time Encounter Type Encounter Description Reason Pro vider Source Nov 07, 2024 10:56 AM Outpatient Encounter PRIMARY CARE/MEDICINE IHE Encounter Template Text not used by MS Plan of Treatment: Future Appointments (+ 6 months) and Future Tests (+/- 45 days) The Plan of Treatment section includes future care activities for the patient from all [place] treatmentfacilities. This section includes future appointments and future orders which are active, pending or scheduled. Future Appointments This section includes appointments that were scheduled to occur 6 months from the date of the Encounter, up to a maximum of 20 appointments. The data comes from all [place] treatment facilities. Appointment Date/Time Appointment Type Appointme nt Facility Name Nov 09, 2024 10:10 AM AMBULATORY - MEDICINE [facility] [place] [facility] Nov 21, 2024 11:00 AM AM[place]ORY - MEDICINE [facility] [place] [facility] Dec 12, 2024 11:00 AM AMBULATORY - MEDICINE [facility] [place] [facility] January 22, 2025 08:00 AM [...] of theEncounter. The data comes from all [place] treatment facilities. Test Date/Time Test Type Test Details Facility Name Oct 10, 2024 04:30 PM Consult Order [facility] Cons University Demonstrator'[facility] Social History: Smoking Status (Most current) and Tobacco Use (All prior to encounter date) This section includes the most current, and the historical, smoking and tobacco- related health factors from the MS facility where the Encounter took place. Current Smoking Status This section includes the most current smoking, or tobacco-related health factor, from the [place] facility where the Encounter took place. Date/Time Current Smoking Status Comment Facil ity Jul 18, 2020 11:41 AM VA-TOBACCO USER EVERY DAY [facility] [place] [facility] Tobacco Use History This section includes a history of the smoking, or tobacco-related health factors, that were collected on or before the date of the Encounter. The data comes from the MS facility where the Encounter took place. 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 This section includes ALL of a patient's completed or amended [place] Advance and Rescinded Directives. The entries below indicate that a directive exists for the patient, but an actual copy is not included with this document. The data comes from all [place] facilities. Date Advance Directives Provider Source Sep 26, 2015 ADVANCE DIRECTIVE SRINIVAS ANDERSON SAVOY Encounter Notes: All associated encounter notes This section contains the clinical notes associated to the Encounter. Date/Time Encounter Note(s) Provider Source Nov 07, 2024 10:56 AM PRIMARY CARE NOTE: LOCAL TITLE: WALK-IN NOTE PRIMARY CARE (T) STANDARD TITLE: PRIMARY CARE NOTE DATE OF NOTE: NOV 07, 2024@10:56 ENTRY DATE: NOV 07, 2024@10:56:08 AUTHOR: JHON NORRIS EXP COSIGNER: URGENCY: STATUS: COMPLETED <====Click to Start Advanced Medical Support presents to the Primary Care clinic with the following request: [ ]Medication Renewal/Refill [ ]Consultation with Team RN [ ]Symptoms [ X ]Other The [place] states they are: [ ]Waiting [ X ]Not Waiting No Walk in visit scheduled with PACT Nurse [ X ] At this encounter the [place]'s demographics were verified. [ ] At this encounter the [place]'s Insurance information was verified. [ ] At this encounter the below scheduled visits for the [place] were discussed and appointment reminder card was offered. Future appointments: 11/09/2024 10:10 [facility] CARE-UROLOGY 12/12/2024 11:00 [facility] PHARM PACT 2 01/22/2025 08:00 [facility] PODIATRY 1 02/05/2025 10:00 SPR PACT 5 04/02/2025 08:00 SPR PODIATRY 1 Patient presents to clinic stating he need pre procedure labs completed for an upcoming cardiac procedure. Patient states he was advised by outside [facility] Medical provider they faxed lab orders to the [place] , Financial Accounting Manager placed a copy of this information from [facility] [phone] /marisela/ AMILCAR NORRIS Advanced Warehouse Delivery Driver Signed: 11/07/2024 11:00 Receipt Acknowledged By: * AWAITING SIGNATURE * WILIAM BERMAN * AWAITING SIGNATURE * CINDY BERMAN,AMILCAR VILLANUEVA
--- OUTSIDE RECORDS SUMMARY | 2024-11-07 14:23 | XMS_ITS | Encounter Summary ---
Author Name Department of Vetera Affairs ([place]) Organization Department of [facility] Affairs ([place]) Address [address] [place] [id number] Care Team Providers Care Dietetic Intern Name Role Phone WILIAM BERMAN Primary [...] Policy Flood [facility] (R) MEDICARE ADVANTAGE [facility] (WNR) Sep 05, 2012 HAM [id number] PATIENT [facility] (WNR) MEDICARE ADVANTAGE [facility] (WNR) Sep 05, 2012 [id number] PATIENT Selected Encounter This section includes the information on record at NE for the Encounter. Date/Time Encounter Type Encounter Description Reason Provider Source Feb 06, 2024 02:00 PM OFFICE O/P EST HI 40 MIN PRIMARY CARE/MEDICINE ICD-10-CM I10 Essential (primary) hypertension WILIAM OJ Lor Encounter Template Text not used by NE Assessments - Encounter Diagnoses This section includes the primary and secondary diagnoses documented for the Encounter. Date/Time Primary/Secondary Diagnosis Diagnosis Name Provider Source Feb 12, 2024 06:52 PM PRIMARY Essential (primary) hypertension WILIAM EPPS [place] Feb 12, 2024 06:52 PM SECONDARY Gastro-esophageal reflux disease without esophagitis WILIAM EPPS [place] Feb 12, 2024 06:52 PM SECONDARY Hyperlipidemia, unspecified WILIAM EPPS [place] Feb 12, 2024 06:52 PM SECONDARY Nicotine dependence, cigarettes, uncomplicated WILIAM EPPS [place] Feb 12, 2024 06:52 PM SECONDARY Obesity, unspecified WILIAM EPPS [place] Feb 12, 2024 06:52 PM SECONDARY Type 2 diabetes mellitus without complications WILIAM EPPS [place] Plan of Treatment: Future Appointments (+ 6 months) and Future Tests (+/- 45 days) The Plan of Treatment section includes future care activities for the patient from all [facility]. This section includes future appointments and future orders which are active, pending or scheduled. Future Appointments This section includes appointments that were scheduled to occur 6 months from the date of the Encounter, up to a maximum of 20 appointments. The data comes from all [facility]. Appointment Date/Time Appointment Type Appointme nt Facility Name Mar 15, 2024 08:40 AM AMBULATORY - MEDICINE [facility] Mar 21, 2024 08:00 AM AMBULATORY - MEDICINE [facility] May 23, 2024 08:00 AM AMBULATORY - MEDICINE [facility] Jun 28, 2024 09:30 AM [facility] MEDICINE [facility] Jul 05, 2024 11:30 AM AMBULATORY - MEDICINE [facility] Jul 18, 2024 08:00 AM AMBULATORY - MEDICINE [facility] Vital Signs: All taken on the encounter date This section contains inpatient and outpatient Vital Signs collected on the date of the Encounter. Date/Time Temperature Pulse Blood Pressure Respiratory Rate SP02 Pain Height Weight Body Mass Index Source Feb 06, 2024 02:32 PM 97.8 60 129/61 99 255.8 33 [place] Social History: Smoking Status (Most current) and Tobacco Use (All prior to encounter date) This section includes the most current, and the historical, smoking and tobacco- related health factors from the NE facility where the Encounter took place. Current Smoking Status This section includes the most current smoking, or tobacco-related health factor, from the NE facility where the Encounter took place. Date/Time Current Smoking Status Comment Facil [facility] Aug 11, 2023 09:00 AM VA-TOBACCO USER EVERY DAY [place] Tobacco Use History This section includes a history of the smoking, or tobacco-related health factors, that were collected on or before the date of the Encounter. The data comes from the NE facility where the Encounter took place. 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 [facility] 09, 2021 09:30 AM VA-TOBACCO USE MED [facility] 09, 2021 09:30 AM VA-TOBACCO USE [place] 30 MIN OF [place] [facility] [place] Aug 13, 2021 09:30 AM VA-TOBACCO USER EVERY DAY [place] Jun 23, 2018 09:30 AM VA-TOBACCO USE 30 YEARS OR MORE [place] Jun 23, 2018 09:30 AM VA-TOBACCO USE ADVICE [place] Jun 23, 2018 09:30 AM VA-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 [place] Jun 23, 2018 05:05 AM VA-TOBACCO USE MED NO [place] Jun 23, 2018 05:05 AM VA-TOBACCO USER EVERY DAY [place] Jun 24, 2017 08:28 AM CURRENT SMOKER cigarettes 3/4 pack daily [place] Jun 24, 2017 08:28 AM V1-PT NOT INTEREST ED IN QUIT TOBACCO USE [place] May 21, 2016 09:13 AM V1-PT NOT INTEREST ED IN QUIT TOBACCO USE [place] Sep 02, 2015 03:57 PM CURRENT SMOKER HALF A PACK A DAY [place] Sep 02, 2015 03:57 PM V1-PT NOT INTEREST ED IN QUIT TOBACCO USE [place] Advance Directives: All historical and current Section Date Range: From patient's date of to the date document was created. This section includes ALL of a patient's completed or amended [place] Advance and Rescinded Directives. The entries below indicate that a directive exists for the patient, but an actual copy is not included with this document. The data comes from all [place] facilities. Date Advance Directives Provider Source Sep 26, 2015 ADVANCE DIRECTIVE SRINIVAS ANDERSON [place] Encounter Notes: All associated encounter notes This section contains the clinical notes associated to the Encounter. Date/Time Encounter Note(s) Provider Source Feb 06, 2024 02:00 PM PHYSICIAN NOTE: LOCAL TITLE: NOTE STANDARD TITLE: PHYSICIAN NOTE DATE OF NOTE: FEB 06, 2024@14:00 ENTRY DATE: FEB 05, 2024@23:15:05 AUTHOR: eJison BERMAN COSIGNER: URGENCY: STATUS: COMPLETED NOTE Has ADDENDA 78 y/o M current smoker with PMH of obesity, HTN, HL, DM2, GERD, BPH Initial visit with id PCP is non VA Dr Potter in [place]- last time seen 2022 - due to change in insurance transferring care to the [facility] Last visit with PCP Dr Keys 08/2023 from now on PCP is NE Other providers: --urology Dr Haywood - can't see him anymore due to change in insurance --endocrinology Dr Cesar for diabetes--> last time seen 4 months ago --podiatry [place] --audiology [place] --pharmacy [facility] --cardiology annually Evaluated in ED 12/2023 burping, perixiphoid pain Following GI evaluation But patient had negative EGD and colonoscopy He was told that burping is due to excessive air swallowing No outside records available for review today Patient was started on PPI that he self discontinued because he did not find it helpful Denies any heartburn, odynophagia, dysphagia #HTN/HL compliant with medications denies CP/SOB/WILKINS/palpitations/dizzin ess /claudication denies h/o WV, CVA PAST MEDICAL HISTORY: --Obesity --HTN --Mixed HL --DM2 --First degree atrioventricular block --GERD --cholelithiasis --CKD3 --Tobacco dependence --Gout --Inguinal hernia --Cataract --Pigmented hairy epidermal nevus PAST SURGICAL HISTORY: ALLERGIES: Patient has answered NKA MEDICATIONS: Non-VA ASPIRIN 81MG Non-VA FENOFIBRATE 160MG BENAZEPRIL HCL 20MG INSULIN,GLARGINE-60 UNITS DAILY Non-VA PIOGLITAZONE HCL 30MG EMPAGLIFLOZIN 25MG SEMAGLUTIDE 0.5MG TAMSULOSIN HCL 0.4MG Finasteride 5mg FAMILY HISTORY: --DM:sister --Cancer: no --WV: no --CVA:no SOCIAL HISTORY: 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 - [place] 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 COMBAT SERVICE INDICATED: No --Occupation: retired --Cohabitation: , lives with his --Children: one daughter 54 y/o , lives locally --Diet: well balanced --Exercise: sedentary --Caffeine: 1c/d --EtOH: few beers a month --Tob: current smoker 0.5 PPD, h/o 49 xPPDY --MJ: denies --Illicits:denies --Sexual activity: --Eye: UTD --Dental: --Hospitalizations: #12/2023 ED [facility] - burping ROS: Constitutional: fatigue, no fever/no chills, no ns Eyes: no decreased vision/blurry vision Ears/Nose/Throat: no hearing change Respiratory: no cough/wheezing/SOB Cardiovascular: no CP /palpitations Gastrointestinal: no abdominal pain/bloody/black stools :no dysuria/hematuria/trouble voiding MSK: no joint pain/myalgia Neuro: no dizziness/H/A Skin: no pruritus/rash ambulates with a cane PHYSICAL EXAM: Vital Signs: Blood Pressure: 129/61 (02/06/2024 14:32) Pulse: 60 (02/06/2024 14:32) Respiration: 16 Temperature: 97.8 F [36.6 C] (02/06/2024 14:32) Patient Weight: 255.8 lb [116.03 kg] (02/06/2024 14:32) Gen: pleasant, engaged, NAD Chest/CV: RRR Lungs: distant BS, CTA B/L , no wheezing, ronchi Abdomen: BS+, Soft, NT, ND Extremities: wwp, no edema LABORATORY: 11/2023 WBC: 5.90 HGB: 15.7 HCT: 46.5 MCV: 93.2 PLT: 238 HGB A1C (WR): 6.7 H GLUCOSE: 97 UREA NITROGEN: 21 CREATININE-EGFR: 1.47 H eGFR CKD-EPI 2020: 48 L SODIUM: 138 POTASSIUM: 4.1 CHLORIDE: 106 CO2: 22 CALCIUM: 8.7 PROTEIN,TOTAL: 6.6 ALBUMIN: 3.6 ALKALINE PHOSPHATASE: 43 BILIRUBIN,TOT.: 0.8 SGOT: 19 SGPT: 19 CHOLESTEROL: 162 TRIGLYCERIDE: 138 LDL CHOL: 97 HDL: 37 L CHOL/HDL RATIO: 4.4 VIT. B12 (WROX): 503 VITAMIN D TOTAL: <13 L ---> TSH (Access): 1.74 U/A negative MICROALB/CR RATIO: 7.3 MICROALBUMIN URINE: 0.9 CREATININE URINE: 122.60 IMAGING: ASSESSMENT/PLAN: 78 y/o M current smoker with PMH of obesity, HTN, HL, DM2, GERD, BPH #HTN: well controlled on benazapril 20mg/day #Mixed HL: on fenofibrate 160mg/day #Obesity: BMI 33, counseled on weight loss #DM2: Dx 1998, managed by Dr Cesar, - pioglitazone 30mg/day, -empagliflozin 25mg/day, -semaglutide 0.5mg SC qwkly, -basal insulin 60units QHS Eye exam: 2022 - Dr Jamil - neg DR Podiatry exam: 01/2024 - Dr Villalpando - positive DPN Microalbuminuria: 2023- negative #Tobacco Use D/O: current 0.5 PPD smoker h/o > 50+ PPDY strongly encouraged cessation, patient not interested in quitting declined screening for lung cancer #GERD: doing well off of PPI #BPH: well controlled LUTS on tamsulosin 0.4mg/day and finasteride Healthcare maintenance: --Lipids: LDL 97 (11/2023) --Diabetes: A1c 6.7 (11/2023) --Colon CA (45-75): per pt had endoscopy 2023 [facility] --Lung CA: pt declined --PSA: PSA 1.69 (2015) f/w urology on finasteride --AAA (smoker/65): 2019 no AAA --Influenza (yrly): 2022 --COVID: 2020 x3 --PCV13: 2015 --PCV23: --HZV (>60yrs, x1): 2011 --RZV (>50yrs, x2): --TDAP: 2015 --Hep C screen: --HIV screen: --DEXA: --Advanced Directives: Address at next visit: review non VA records, burping Return to clinic to see me in _4__ months, sooner PRN. Virtual ( ), F2F (x ) ( )non fasting labs ordered prior to f/u ( )fasting labs ordered prior to f/u ( )no labs needed ( )request labs from outside provider (x )request records from outside providers -endocrinology Dr Cesar for diabetes -obtain notes from urology Dr Haywood -cardiology [address] [place] --[facility] colonoscopy 2023 --ED visit [facility] 12/2023 Medication Reconciliation: Outpatient: Has the patient been taking medications as documented in the EMLR? No: Discrepencies were identified. See below. Essential Medication List for Review used to complete this medication reconciliation. INCLUDED IN THIS LIST: Alphabetical list of active outpatient prescriptions dispensed from this VA (local) and dispensed from another [place] or [facility] facility (remote) as well as inpatient orders (local, pending and active), local clinic medications, locally documented non-VA medications, and local prescriptions that have or been discontinued in the past 90 days. - Discrepancies were identified, addressed, and discussed with the patient/caregiver at this encounter. Discrepancies: chart updated - All changes in medications, including all non-VA/Herbal/OTC medications were entered into CPRS. - If there were any medications the patient should no longer take, they were discontinued. - The patient/caregiver was instructed to update this list, discard old lists, and take this list to the next appointment, whether with a VA or non-VA provider. /marisela/ WILIAM BERMAN MD PHYSICIAN Signed: 02/12/2024 18:52 Receipt Acknowledged By: 02/14/2024 13:29 /marisela/ PILAR BURCIAGA 02/14/2024 ADDENDUM STATUS: COMPLETED COAT MAKER REQUESTED ALL RECORDS. /marisela/ PILAR BURCIAGA Signed: 02/14/2024 13:29 02/29/2024 ADDENDUM STATUS: COMPLETED Urology and endocrinology notes received, sent to [facility] /marisela/ Yee cMmillan RN Registered Nurse Signed: 02/29/2024 17:25 KRIS BERMAN
== END 2024-11-07 11:51 | disposition home or self-care (01) ==
LOC: HO.HMGCLDS 11:50
PROVIDERS: Visit Provider Student in an Organized Health Care Education/Training Program
DX: Z01.810 Encounter for preprocedural cardiovascular examination (principal); R06.00 Dyspnea, unspecified
CPT/HCPCS: 36415; 80048; 85025; 85610